=== PATIENT | female | born 1970 | race Caucasian/White ===

== ENCOUNTER → 2016-03-08 | Outpatient (CLI) | payer OTHER ==
--- NOTE | 2016-03-08 14:01 | CT ---
EXAMINATION TYPE: CT chest w con DATE OF EXAM: 03/08/2016 1:22 PM COMPARISON: 12/04/2015 HISTORY: Patient has no complaints at time of study. Follow up for history of lung/breast CA and anna g collapse. CT DLP: 122.2 mGycm Automated exposure control for dose reduction was used. CONTRAST: CT scan of the chest is performed with IV Contrast, patient injected with 100 mL of Omnipaque 300. FINDINGS: LUNGS: Postoperative changes right upper lobe. There is evidence of paraseptal emphysema. Nodular den sity right lower lobe measuring 3.7 mm as seen best on image 30. No additional nodules seen. Mild ple ural parenchymal scarring right lower lobe. MEDIASTINUM: There are no greater than 1 cm hilar or mediastinal lymph nodes. No pericardial effusi on is seen. Thoracic aorta is of normal caliber. The heart is not enlarged. UPPER ABDOMEN: There is evidence of fatty liver. Within the posterior segment right hepatic lobe near the hepatic dome other 2 small lesions noted without one of which is hyperdense and measures 6 mm th e second demonstrates peripheral enhancement and measures 1.2 cm. These may reflect hemangiomas how er dedicated evaluation of the liver with hemangioma protocol is advised. There is also evidence of c holecystectomy. OTHER: Bilateral breast implants are in place. IMPRESSION: 1.Nodular density right lower lobe measuring 3.7 mm as seen best on image 30. No additional nodules s een. 2.Within the posterior segment right hepatic lobe near the hepatic dome other 2 small lesions noted w ithout one of which is hyperdense and measures 6 mm the second demonstrates peripheral enhancement an d measures 1.2 cm. These may reflect hemangiomas however dedicated evaluation of the liver with heman gioma protocol is advised. 3. Postoperative changes right upper lobe with paraseptal emphysema seen.
== END | disposition home or self-care (01) ==
LOC: RADCTMAIN 12:42
PROVIDERS: ATTEND Internal Medicine Hematology & Oncology
DX: Z03.89 Encounter for observation for other suspected diseases and conditions ruled out (principal); R91.1 Solitary pulmonary nodule; R91.8 Other nonspecific abnormal finding of lung field; J43.9 Emphysema, unspecified; C50.919 Malignant neoplasm of unspecified site of unspecified female breast; Z98.890 Other specified postprocedural states
CPT/HCPCS: 71260; Q9967

== ENCOUNTER → 2016-08-04 | Outpatient (CLI) | payer OTHER ==
--- NOTE | 2016-08-04 18:42 | CT ---
EXAMINATION TYPE: CT chest w con DATE OF EXAM: 08/04/2016 COMPARISON: 03/08/2016 HISTORY: Breast Cancer CT DLP: 514 mGycm Automated exposure control for dose reduction was used. CONTRAST: CT scan of the chest is performed with IV Contrast, patient injected with 100 ml mL of Omnipaque 300. FINDINGS: There is mild bullous emphysema and more noticeable in the upper lobes. There are bilateral breast im plants. Mediastinum is intact. There is no evidence of mediastinal adenopathy. I see no filling defec ts in the pulmonary arteries. There are no hilar masses. Heart size is normal. There is no pericardia l effusion. There is a 3 cm area of mixed density in the superior right lobe of the liver with some n odular enhancement consistent with hemangioma. There is no adrenal mass. There is no pleural effusion . There is a small linear density in the lingula left upper lobe. There is mild linear density and ca lcification in the anterior right middle lobe. I see no focal bone destruction. IMPRESSION: There is chronic predominantly linear density in the right middle lobe and right upper l obe consistent with scarring. There is a small area of similar density in the lingula left upper lobe . This appears stable compared to old CT scan of 03/08/2016. Mild pulmonary emphysema. No evidence of adenopathy. Stable hemangioma in the superior posterior right lobe of the liver.
== END | disposition home or self-care (01) ==
LOC: RADCTMAIN 14:08
PROVIDERS: ATTEND Internal Medicine Hematology & Oncology
DX: C50.919 Malignant neoplasm of unspecified site of unspecified female breast (principal); J43.9 Emphysema, unspecified; R91.8 Other nonspecific abnormal finding of lung field
CPT/HCPCS: 71260; Q9967

== ENCOUNTER → 2017-08-25 | Outpatient (CLI) | payer OTHER ==
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
[2017-08-25 16:57] VITALS: BP 132/92; PULSE 90; TEMP 98.6; BMI 23.3
== END ==
LOC: WWCWWP 14:11
PROVIDERS: ATTEND Surgery
DX: Z53.9 Procedure and treatment not carried out, unspecified reason (principal)

== ENCOUNTER → 2017-09-29 | Outpatient (CLI) | payer OTHER ==
[2017-09-29 09:03] VITALS: BP 114/76; PULSE 79; RESP 12; TEMP 98.3; BMI 23.1
--- NOTE | 2017-09-29 09:28 | P.GSHP ---
History of Present Illness H&P Date: 09/29/17 The patient is a 47-year-old white female who is status post bilateral mastectomy in 2006. The patient at that time was 35 years old. She was uncertain if she had BRCA 1 testing performed. She was told that she had cancer on the right side but her lymph nodes were negative. She was having bleeding from the right nipple and at that time she was felt that it would be best to have bilateral mastectomy. She did have immediate reconstruction with expanders place. It was necessary for her to have radiation therapy to the right chest wall. She began the process of expansion after completion of the radiation which was done about [facility] for a period of 6 weeks 5 days a week. She then began the process of expansion every 2 weeks and had pain on the right side at that time. In the process of her expansion she lost her insurance and is therefore never had the expanders removed and the reconstruction completed. The patient had a total hysterectomy with her ovaries removed no cancer was present. The patient at this time is not having any pain related to the expanders however she has noted that the clinical psychology teacher seems to be eroding through an area of the skin on the right side. The left side appears to be healing well. The patient does not seem to have any infection at the site at this time. Family history: 1. Father prostate cancer 2. Maternal grandmother lung cancer she was a smoker 3. Maternal grandfather lung cancer smoker Hormonal history: Menarche: 13 Pregnancies: 4, 4 children, first at 21 she breast-fed all Menopause: Total hysterectomy at 35 years old hormones: Tamoxifen for 5 years did not use any hormone replacement therapy was told her tumor was ER positive control pills: 6 years Past surgical history: 1. Bilateral mastectomy with reconstruction 2. Cholecystectomy 3. Pneumothorax/chest tube and thoracic surgery questionable mesothelioma which was sensed ruled out Past medical history: 1. COPD 2. Patient with a portion of her lung resected with a questionable history of mesothelioma which was ruled out Social history: 1. Smoker: Half a pack per day for 20 years 2. Alcohol: We can strings. 3. Drugs negative - Constitutional Constitutional: Reports sweats, Denies chills, Denies fever - EENT Eyes: denies blurred vision, denies pain Ears: deny: decreased hearing, tinnitus Ears, nose, mouth and throat: Denies headache, Denies sore throat - Breasts Breasts: bilateral: as per HPI - Cardiovascular Cardiovascular: Denies chest pain, Denies shortness of breath - Respiratory Respiratory: Reports as per HPI - Gastrointestinal Gastrointestinal: Denies abdominal pain, Denies diarrhea, Denies nausea, Denies vomiting - Genitourinary (Female) Genitourinary: Denies dysuria, Denies hematuria - Musculoskeletal Musculoskeletal: Denies myalgias - Integumentary Integumentary: Denies pruritus, Denies rash - Neurological Neurological: Denies numbness, Denies weakness - Psychiatric Psychiatric: Denies anxiety, Denies depression - Endocrine Endocrine: Denies fatigue, Denies weight change - Hematologic/Lymphatic Comment: none - Allergic/Immunologic Comment: none Past Medical History Past Medical History: Cancer, COPD, Thyroid Disorder Additional Past Medical History / Comment(s): R breast cancer with bilateral mastectomies with radiation, History of Any Multi-Drug Resistant Organisms: None Reported Past Surgical History: Breast Surgery, Cholecystectomy, Tubal Ligation Additional Past Surgical History / Comment(s): bilateral masectomies with reconstruction, D&C, RIGHT LUNG SURGERY Past Anesthesia/Blood Transfusion Reactions: No Reported Reaction, Motion Sickness Past Psychological History: Anxiety, Panic Disorder Additional Psychological History / Comment(s): Pt resides with family. She is independent. Smoking Status: Current every day smoker Past Alcohol Use History: Occasional Additional Past Alcohol Use History / Comment(s): STARTED SMOKING AT AGE 15 SMOKES 1/4 PPD Past Drug Use History: None Reported - Past Family History Father Family Medical History: Cancer Additional Family Medical History / Comment(s): Father is healthy and is 75yrs old. Mother Family Medical History: No Reported History Additional Family Medical History / Comment(s): Mother is healthy and is 75 yrs old. Medications and Allergies Home Medications Medication Instructions Recorded Confirmed Type ALPRAZolam [Xanax] 0.5 mg PO DAILY PRN 08/25/17 09/29/17 History Ranitidine HCl 150 mg PO DAILY PRN 08/25/17 09/29/17 History Albuterol Inhaler [Ventolin Hfa 1 - 2 puff INHALATION Q6HR PRN 09/26/17 History Inhaler] Ibuprofen [Motrin] 800 mg PO Q8H PRN 09/26/17 09/29/17 History Allergies Allergy/AdvReac Type Severity Reaction Status Date / Time No Known Allergies Allergy Verified 09/29/17 08:54 Surgical - Exam Vital Signs Temp Pulse Resp BP Pulse Ox 98.3 F 79 12 114/76 99 09/29/17 08:55 09/29/17 08:55 09/29/17 08:55 09/29/17 08:55 09/29/17 08:55 - General well developed, well nourished, no distress - Eyes normal ocular movement - ENT no hearing loss, no congestion - Neck no masses, trachea midline - Respiratory normal respiratory effort, clear to auscultation - Cardiovascular Rhythm: regular Heart Sounds: normal: S1, S2 - Abdomen Abdomen: soft, non tender, no guarding, no rigid, no rebound Hernia: reducible, umbilical - Integumentary Breast examination: Right breast: Patient status post mastectomy with reconstruction the implant is very firm with some erosion over the skin in the central aspect of the area of the implant, the skin is been radiated as well and there are radiation changes Right axilla: No adenopathy of concern Left breast: Patient status post mastectomy with reconstruction the skin is supple with no evidence of disease Left axilla: No adenopathy of concern Assessment and Plan Assessment: Impression/plan: 1. Patient status post bilateral mastectomy with bilateral expanders placed proximally 7 years ago 2. The right is beginning to erode through the skin of the breast 3. Patient with questionable history of mesothelioma denied by [facility] 4. Patient follows with Dr. Oneill Plan: 1. Patient has received medical clearance from Dr. Mcnair pending pulmonary clearance 2. After discussion with the patient and her mother she wishes both of the expanders to be removed. She is not interested in reconstruction at this time. She understands and will be necessary for cosmetic results to wear bra with prosthesis and this was she wishes to do. The risks and benefits of the surgery have been discussed with the patient including bleeding and infection reaction to the anesthetic and she wishes to proceed. Additionally there is some concern that the right skin is very fibrotic and has radiation changes and there may be difficulty with healing she understands this and wishes to proceed. She understands that if I'm unable to completely remove that implant secondary to fibrosis she may be necessary that she follow with a plastic surgeon and she still wishes to proceed. Cc: Dr. Mcnair, Dr. Oneill, Dr. Bedoya pulmonology
== END ==
LOC: WWCWWP 08:43
PROVIDERS: ATTEND Surgery
DX: Z53.9 Procedure and treatment not carried out, unspecified reason (principal)

== ENCOUNTER 2017-10-04 08:13 | Observation (INO) | payer OTHER ==
[2017-09-26 11:48] VITALS: BMI 22.4
[~2017-10-04 08:13] MED LIST: DEXAMETHASONE SOD PHOSPHATE 10 MG/ML 1 ML VIAL IV ONE; LACTATED RINGERS 1,000 ML IV SCH; LIDOCAINE 1% 20 ML VIAL (10MG/ML) FOR IV START INTRADERMA PRN; MIDAZOLAM 2 MG/2 ML VIAL IV PRN; ONDANSETRON 4 MG/2 ML VIAL IVP ONE; Pre Op ABX Message 1 EACH MISC MISCELLANE ONE
[2017-10-04] MEDS ORDERED: LIDOCAINE 1% INJ 10MG/ML (20 ML MDV) ONE (09:56)
[2017-10-04] MEDS ORDERED: ePHEDrine SULFATE/0.9% NACL/PF 50 MG/5 ML SYRINGE IV ONE (09:56)
[2017-10-04] MEDS ORDERED: KETOROLAC 30 MG/ML 1 ML VIAL ONE (09:56)
[2017-10-04] MEDS ORDERED: SUCCINYLCHOLINE CHLORIDE 100 MG/5 ML SYR IV ONE (09:56)
[2017-10-04] MEDS ORDERED: PROPOFOL 10 MG/ML 20 ML VIAL IV ONE (09:56)
[2017-10-04] MEDS ORDERED: MIDAZOLAM 2 MG/2 ML VIAL ONE (09:56)
[2017-10-04] MEDS ORDERED: fentaNYL (PF) 50 MCG/ML 2 ML AMP ONE (09:56)
[2017-10-04] MEDS ORDERED: SODIUM CHLORIDE 0.9% 50 ML with ceFAZolin 1,000 MG IV ONE ×2 (10:06)
[2017-10-04] MEDS ORDERED: HEPARIN SODIUM,PORCINE 5,000 UNIT/ML 1 ML VIAL SQ ONE (10:06)
--- NOTE | 2017-10-04 10:06 | P.PN ---
Progress Note - Text Progress Note Date: 10/04/17 The case has been discussed with Dr. Mclean from plastic surgery. He is the original plastic surgeon who placed the expanders. He is in concurrence with me removing the expanders. I discussed with him that the right spinning frame tender is very fixed and that there is marked fibrosis of the skin related to radiation treatment. He understands this and understands that we may have difficulty removing the spinning frame tender completely. Despite this he agrees with attempted removal of the expanders. He has agreed to see the patient postoperatively if there is any question or complication. The patient and her family also understand the above and wishes to proceed with removal of the expanders. The patient is not interested in reconstruction of the breast at any time and even if we are unable to remove completely the right breast spinning frame tender she wishes the left breast spinning frame tender to be removed. She understands the risks and benefits and wishes to proceed.
[2017-10-04] MEDS ORDERED: LIDOCAINE 1% INJ 10MG/ML (20 ML MDV) SQ ONE (10:13)
[2017-10-04] MEDS ORDERED: LACTATED RINGERS 1,000 ML IV ONE (11:24)
[2017-10-04] MEDS ORDERED: HYDROcodone/APAP 5-325MG 1 EACH TAB PO PRN (11:40)
[2017-10-04] MEDS ORDERED: ONDANSETRON 4 MG/2 ML VIAL IVP PRN (11:40)
[2017-10-04] MEDS ORDERED: HYDROmorphone 1 MG/ML 1 ML SYRINGE IV PRN (11:40)
[2017-10-04] MEDS ORDERED: NALOXONE 0.4 MG/ML 1 ML VIAL IV PRN (11:40)
--- NOTE | 2017-10-04 11:40 | P.OP ---
Date of Procedure: 10/04/17 Preoperative Diagnosis: Right breast cancer, orchestrator eroding through chest wall on right side, patient is a 47-year-old white female who is status post bilateral mastectomies and orchestrator placement approximately 7 years ago. She presents with some beginning erosion of the right orchestrator through the skin of the chest wall. The patient had had a cancer on the right side and undergone a mastectomy and radiation therapy on that side. The patient states that she started the process of breast reconstruction and then lost her insurance and did not pursue this any further. The patient presented for removal of bilateral expanders. The case was discussed with plastic surgery and risks and benefits discussed with the patient in she wished to proceed. Postoperative Diagnosis: same Procedure(s) Performed: Removal bilateral breast expanders, Anesthesia: DANAYA Surgeon: Rylee Juárez Estimated Blood Loss (ml): 10 IV fluids (ml): 800 Pathology: other (Bilateral breast expanders, skin lesion right chest wall) Condition: stable Disposition: PACU Indications for Procedure: The patient is a 47-year-old white female who had bilateral mastectomies approximately 7 years ago. The patient had expanders placed and did not complete her reconstruction. At this time the orchestrator on the right side which had received radiation is beginning to erode through the chest wall. The patient understands the risks and benefits and wished to proceed with the procedure. Operative Findings: Bilateral breast implants, markedly fibrotic changes on the right chest wall and pectoralis muscle related to prior radiation treatment Description of Procedure: The patient is a 47-year-old white female who had bilateral mastectomies approximately 7 years ago. The patient had expanders placed and did not complete her reconstruction. At this time the orchestrator on the right side which had received radiation is beginning to erode through the chest wall. The patient understands the risks and benefits and wished to proceed with the procedure. The patient was taken to the operating room and the chest wall was prepped and draped in a sterile fashion. The right side was approached initially. An incision was made through the skin and subcutaneous tissue. The orchestrator was extremely close and at some points appeared to be eroding through the area of the subpectoral muscle and through the area of the skin. The muscle was divided in order to reach the implant which was very adherent to the implant. This was carefully dissected using blunt dissection and able to be completely removed. The cavity was well irrigated. There was prominent fullness at the superior aspect of the cavity which appeared to be bony in nature. After the cavity had been well irrigated a CASIE drain was placed. The muscles were reapproximated using 3-0 Vicryl suture. The skin was reapproximated using a 4- 0 Monocryl. The inferior flap was revised as the skin was very thin and appeared to have radiation changes. This area was resected. The drain was secured using a nylon suture. The patient had a small area of nodularity superior on the flap which was resected to rule out a metastatic deposit. Gowns and gloves were changed as were instruments prior to approaching the left side of the chest. The left side of the chest wall was then approached. An incision was made and carried down through the skin and subcutaneous tissue. The muscle was identified. The lateral aspect of the muscle was elevated and the implant was able to be extruded. The cavity was well irrigated. Following this a CASIE drain was placed. The muscle was closed using a Vicryl suture. The subcutaneous tissue was closed using a 3-0 Vicryl suture. The skin was closed using a 4-0 Monocryl. The drain was secured using a nylon suture. Cultures were obtained of both the implants. Steri-Strips were applied the patient tolerated the procedure in stable condition. All instrument and sponge counts were correct at the end of the case.
[2017-10-04] MEDS ORDERED: SODIUM CHLORIDE 0.45% 1,000 ML IV SCH (11:45)
[2017-10-04] MEDS: fentaNYL (PF) 50 MCG/ML 2 ML AMP IV PRN ×2 (12:14→12:26)
[2017-10-04] MEDS ORDERED: CALCIUM CARBONATE 500 MG CHEWABLE PO PRN (16:37)
[2017-10-04] MEDS ORDERED: ALPRAZolam 0.5 MG TAB PO PRN (16:38)
[2017-10-04] MEDS: KETOROLAC 30 MG/ML 1 ML VIAL IVP PRN (19:35)
[2017-10-04] MEDS ORDERED: HEPARIN SODIUM,PORCINE 5,000 UNIT/ML 1 ML VIAL SQ SCH (21:00)
[2017-10-05] MEDS: KETOROLAC 30 MG/ML 1 ML VIAL IVP PRN ×2 (01:08→08:08)
[2017-10-05 05:44] VITALS: RESP 16
[2017-10-05] MEDS ORDERED: PANTOPRAZOLE 40 MG TABLET PO SCH (07:30)
[2017-10-05 07:34] LABS: Basophils % (A) 0 %; Eosinophils # (A) 0.1 k/uL (0-0.7); Eosinophils % (A) 1 %; HCT 41.8 % (34.0-46.0); HGB 13.1 gm/dL (11.4-16.0); Lymphocytes % (A) 20 %; MCHC 31.3 g/dL (31.0-37.0); MCV 105.2 fL (80.0-100.0); Macrocytosis Slight; Mean Platelet Volume 6.8; Monocytes # (A) 0.7 k/uL (0-1.0); Monocytes % (A) 7 %; Neutrophils # (A) 7.2 k/uL (1.3-7.7); Neutrophils % (A) 71 %; Platelet Count 268 k/uL (150-450); RBC 3.97 m/uL (3.80-5.40); RDW 12.3 % (11.5-15.5); WBC 10.1 k/uL (3.8-10.6)
[2017-10-05 08:18] VITALS: BP 108/69; PULSE 63; TEMP 98
[2017-10-05] MEDS ORDERED: FAMOTIDINE 20 MG TAB PO PRN (09:20)
[2017-10-05] MEDS ORDERED: ALBUTEROL NEBULIZED 2.5 MG/3 ML INHALATION PRN (09:20)
[2017-10-05] MEDS ORDERED: ALPRAZolam 0.5 MG TAB PO PRN (09:20)
--- NOTE | 2017-10-05 09:20 | P.CONS ---
History of Present Illness - Reason for Consult Consult date: 10/05/17 - Chief Complaint Medical management - History of Present Illness Is here essentially for implant/head of science removal. She has struggled with previous history of breast cancer and the cosmetic appearance of this. No new complaints. She has minimal pain postoperatively. Review of Systems Constitutional: Denies chills, Denies fever Eyes: denies blurred vision, denies pain Ears, nose, mouth and throat: Denies headache, Denies sore throat Cardiovascular: Denies chest pain, Denies shortness of breath Respiratory: Denies cough Gastrointestinal: Denies abdominal pain, Denies diarrhea, Denies nausea, Denies vomiting Genitourinary: Denies dysuria, Denies hematuria Musculoskeletal: Denies myalgias Past Medical History Past Medical History: Cancer, COPD, Thyroid Disorder Additional Past Medical History / Comment(s): R breast cancer with bilateral mastectomies with radiation, History of Any Multi-Drug Resistant Organisms: None Reported Past Surgical History: Breast Surgery, Cholecystectomy, Tubal Ligation Additional Past Surgical History / Comment(s): bilateral masectomies with reconstruction, D&C, RIGHT LUNG SURGERY Past Anesthesia/Blood Transfusion Reactions: No Reported Reaction, Motion Sickness Past Psychological History: Anxiety, Panic Disorder Additional Psychological History / Comment(s): Pt resides with family. She is independent. Smoking Status: Current every day smoker Past Alcohol Use History: Occasional Additional Past Alcohol Use History / Comment(s): STARTED SMOKING AT AGE 15 SMOKES 1/4 PPD Past Drug Use History: None Reported - Past Family History Father Family Medical History: Cancer Additional Family Medical History / Comment(s): Father is healthy and is 75yrs old. Mother Family Medical History: No Reported History Additional Family Medical History / Comment(s): Mother is healthy and is 75 yrs old. Medications and Allergies Home Medications Medication Instructions Recorded Confirmed Type ALPRAZolam [Xanax] 0.5 mg PO DAILY PRN 08/25/17 10/04/17 History Ranitidine HCl 150 mg PO DAILY PRN 08/25/17 10/04/17 History Albuterol Inhaler [Ventolin Hfa 1 - 2 puff INHALATION Q6HR PRN 09/26/17 History Inhaler] Ibuprofen [Motrin] 800 mg PO Q8H PRN 09/26/17 09/29/17 History Allergies Allergy/AdvReac Type Severity Reaction Status Date / Time No Known Allergies Allergy Verified 09/29/17 08:54 Physical Exam Vitals: Vital Signs Temp Pulse Resp BP Pulse Ox 10/05/17 08:00 98.0 F 63 16 108/69 98 10/05/17 00:00 97.9 F 69 16 131/69 97 10/04/17 20:00 97.6 F 61 16 106/72 10/04/17 16:00 98.5 F 60 18 103/68 94 L 10/04/17 15:45 98.0 F 63 18 110/69 94 L 10/04/17 15:15 71 18 120/71 94 L 10/04/17 14:45 70 16 118/68 94 L 10/04/17 14:15 68 16 122/70 93 L 10/04/17 14:00 68 16 116/70 93 L 10/04/17 13:45 98.4 F 75 16 122/64 94 L 10/04/17 13:30 68 16 116/68 93 L 10/04/17 13:15 98.1 F 80 16 116/70 93 L 10/04/17 12:43 79 16 111/75 92 L 10/04/17 12:27 85 16 109/75 94 L 10/04/17 12:15 86 16 120/81 97 10/04/17 11:56 97.0 F L 100 22 119/79 98 Intake and Output 10/04/17 10/05/17 10/05/17 22:59 06:59 14:59 Intake Total 300 Output Total 5 30 20 Balance 295 -30 -20 Intake: Oral 300 Output: Drainage 5 30 20 Right Chest 5 15 10 left chest 15 10 Other: # Voids 1 1 1 Results CBC & Chem 7: 10/05/17 06:50 Labs: Abnormal Lab Results - Last 24 Hours (Table) 10/05/17 Range/Units 06:50 MCV 105.2 H (80.0-100.0) fL Microbiology - Last 24 Hours (Table) 10/04/17 11:40 Gram Stain - Preliminary Breast - Left Wound Culture - Preliminary 10/04/17 11:40 Gram Stain - Preliminary Breast - Right Wound Culture - Preliminary 10/04/17 11:40 Anaerobic Culture - Preliminary Breast - Left 10/04/17 11:40 Anaerobic Culture - Preliminary Breast - Right Assessment and Plan (1) COPD (chronic obstructive pulmonary disease) Current Visit: No Status: Acute Code(s): J44.9 - CHRONIC OBSTRUCTIVE PULMONARY DISEASE, UNSPECIFIED SNOMED Code(s): 15597755 (2) History of breast cancer in female Current Visit: No Status: Acute Code(s): Z85.3 - PERSONAL HISTORY OF MALIGNANT NEOPLASM OF BREAST SNOMED Code(s): 063060493 Plan: We'll continue to follow from a medical perspective but especially be discharged today once the wound check is clear. Reconcile medications as needed. We'll follow-up as necessary.
--- NOTE | 2017-10-05 11:33 | P.PN ---
Subjective Progress Note Date: 10/05/17 Patient is post op day number one removal of bilateral breast implants. She is doing well without complaints. Objective - Vital Signs Vital signs: Vital Signs Temp 98.0 F 10/05/17 08:00 Pulse 63 10/05/17 08:00 Resp 16 10/05/17 08:00 BP 108/69 10/05/17 08:00 Pulse Ox 98 10/05/17 08:00 Intake & Output 10/04/17 10/05/17 10/05/17 18:59 06:59 18:59 Intake Total 1500 Output Total 15 30 20 Balance 1485 -30 -20 Weight 61.235 kg Intake: IV 1200 Oral 300 Output: Drainage 5 30 20 Right Chest 5 15 10 left chest 15 10 Estimated Blood Loss 10 Other: # Voids 1 1 1 - Constitutional General appearance: Present: average body habitus - Respiratory Respiratory: bilateral: CTA - Cardiovascular Rhythm: regular Heart sounds: normal: S1, S2 - Integumentary Integumentary Comment(s): incisions clean and dry bilateral, CASIE output serous - Psychiatric Psychiatric: Present: A&O x's 3, appropriate affect, intact judgment & insight - Labs CBC & Chem 7: 10/05/17 06:50 Labs: Abnormal Lab Results - Last 24 Hours (Table) 10/05/17 Range/Units 06:50 MCV 105.2 H (80.0-100.0) fL Microbiology - Last 24 Hours (Table) 10/04/17 11:40 Gram Stain - Preliminary Breast - Left Wound Culture - Preliminary 10/04/17 11:40 Gram Stain - Preliminary Breast - Right Wound Culture - Preliminary 10/04/17 11:40 Anaerobic Culture - Preliminary Breast - Left 10/04/17 11:40 Anaerobic Culture - Preliminary Breast - Right Assessment and Plan Assessment: imp/plan: 1. status post bilateral implant removal 2. POD#1 Plan: 1. discharge home 2. wear wrap 3. teach drain care 4. follow up tomorrow
--- NOTE | 2017-10-05 11:36 | P.DS ---
Providers Date of admission: 10/05/17 02:32 Attending physician: Rylee Juárez Consults: 10/04/17 11:43 Consult Physician Routine Consulting Provider: Elias Mcnair Consult Reason/Comments: medical managment Do you want consulting provider notified?: Yes Primary care physician: Elias Mcnair Plan - Discharge Summary New Discharge Prescriptions: No Action Ranitidine HCl 150 mg PO DAILY PRN PRN Reason: Heartburn ALPRAZolam [Xanax] 0.5 mg PO DAILY PRN PRN Reason: Anxiety Albuterol Inhaler [Ventolin Hfa Inhaler] 1 - 2 puff INHALATION Q6HR PRN PRN Reason: Shortness Of Breath Ibuprofen [Motrin] 800 mg PO Q8H PRN PRN Reason: Pain Discharge Medication List ALPRAZolam [Xanax] 0.5 mg PO DAILY PRN 08/25/17 [History] Ranitidine HCl 150 mg PO DAILY PRN 08/25/17 [History] Albuterol Inhaler [Ventolin Hfa Inhaler] 1 - 2 puff INHALATION Q6HR PRN [History] Ibuprofen [Motrin] 800 mg PO Q8H PRN 09/26/17 [History] Follow up Appointment(s)/Referral(s): Rylee Juárez MD [STAFF PHYSICIAN] - 1-2 Days Activity/Diet/Wound Care/Special Instructions: do not drive if taking vicodan medication teach drain care, drain and record BID and as needed may shower after 48 hours wear wrap at all times Discharge Disposition: HOME SELF-CARE
== END 2017-10-05 12:19 | disposition home or self-care (01) ==
LOC: OR 08:13 → 4FBP 11:56 → OR 10-05 02:32
PROVIDERS: ADMIT Surgery; ATTEND Surgery
DX: T85.49XA Other mechanical complication of breast prosthesis and implant, initial encounter (principal); Z90.13 Acquired absence of bilateral breasts and nipples; Z85.3 Personal history of malignant neoplasm of breast; J44.9 Chronic obstructive pulmonary disease, unspecified; F17.210 Nicotine dependence, cigarettes, uncomplicated; E07.9 Disorder of thyroid, unspecified; F41.0 Panic disorder [episodic paroxysmal anxiety]; F41.9 Anxiety disorder, unspecified; Z79.899 Other long term (current) drug therapy; Z92.3 Personal history of irradiation; Z90.710 Acquired absence of both cervix and uterus; Z90.2 Acquired absence of lung [part of]; Z90.49 Acquired absence of other specified parts of digestive tract; Z80.1 Family history of malignant neoplasm of trachea, bronchus and lung; Z80.42 Family history of malignant neoplasm of prostate; Z81.2 Family history of tobacco abuse and dependence
CPT/HCPCS: 88305; 85025; 88300; 87070; 87205; 87075; 11971; G0378; J2250; J1644 ×2; J1100; J2405; J2001; J3010; J1885 ×2; J1170; J0690; J0330; J2704

== ENCOUNTER → 2017-10-06 | Outpatient (CLI) | payer OTHER ==
[2017-10-06 16:30] VITALS: BP 124/84; PULSE 69; RESP 12; TEMP 98.5; BMI 23.1
--- NOTE | 2017-10-06 16:55 | P.PN ---
Progress Note - Text Progress Note Date: 10/06/17 The patient is postop day #2 from removal of bilateral breast expanders. She has no complaints at this time. Her Mandy wrap was removed and dressings were changed. Physical exam: Incisions are both clean and dry. There is no evidence of any infection or hematoma. CASIE drains are in place with serous drainage bilaterally each drain has approximately 8 cc. Impression/plan: 1. Patient postop day #2 removal of bilateral breast expanders 2. Continue present therapy Plan: Follow up next week for drain removal and pathology of skin right chest wall Cc: Dr. Mcnair
== END ==
LOC: WWCWWP 16:13
PROVIDERS: ATTEND Surgery
DX: Z53.9 Procedure and treatment not carried out, unspecified reason (principal)

== ENCOUNTER → 2017-10-13 | Outpatient (CLI) | payer OTHER ==
[2017-10-13 12:34] VITALS: BP 118/69; PULSE 87; BMI 23.1
--- NOTE | 2017-10-13 13:08 | P.PN ---
Progress Note - Text Progress Note Date: 10/13/17 The patient is a 47-year-old white female who is status post removal of bilateral breast expanders. She has no complaints at this time related to the surgery, however this morning when she woke up she did have some left chest wall tenderness. This appears to be muscular in nature and is more noticeable when she flexes her pectoralis muscle. CASIE drainage is approximately 10-15 mL per day per drain. It is serous in nature. The results of the pathology were discussed with the patient and her mother. A skin lesion had been removed which revealed calcium sulfide tissue. No evidence of any cancer. Physical exam: Incisions clean and dry bilateral breast, as well as skin lesion removed right chest wall CASIE drain serous bilateral The left chest wall has some tenderness to palpation over the intercostal muscles and pectoralis muscle, there is no mass or no evidence of any infection Lungs clear Heart regular rate and rhythm Impression: 1. Status post removal of bilateral breast expanders related to prior right breast cancer surgery 2. CASIE drain removal recommended 3. Musculoskeletal tenderness over the pectoralis muscle Plan: 1. Removal bilateral CASIE drains, this was performed with no difficulty 2. skin sutures removed right chest wall 3. If patient has persistent musculoskeletal tenderness over the pectoralis muscle will consider physical therapy, at this time conservative management 4. Follow-up in 2 weeks and we will assess the wound healing most likely give the patient a prescription for bilateral breast prosthesis Cc: Dr. Mcnair
== END ==
LOC: WWCWWP 12:22
PROVIDERS: ATTEND Surgery
DX: Z53.9 Procedure and treatment not carried out, unspecified reason (principal)

== ENCOUNTER → 2017-10-31 | Outpatient (CLI) | payer OTHER ==
[2017-10-31 13:19] VITALS: BP 113/79; PULSE 96; BMI 23.1
--- NOTE | 2017-10-31 13:33 | P.PN ---
Progress Note - Text Progress Note Date: 10/31/17 The patient is status post bilateral breast expanders removed on October 04. She has done well since that time. At this time her incisions are healing without difficulty. Expanders were originally placed approximately 10 years ago. At that time she had bilateral mastectomy for a right breast cancer. She did receive tamoxifen and radiation therapy. At this time the patient is doing well. Physical exam: Lungs: Clear Heart: Regular rate and rhythm Incisions: Bilateral healed well with no evidence of any infection Impression/plan: 1. Patient will follow up in 6 weeks for prosthetic prescription 2. Follow-up with Dr. Mcnair for medical care 3. Follow here in 6 weeks time Cc: Dr. Mcnair
== END | disposition home or self-care (01) ==
LOC: WWCWWP 12:36
PROVIDERS: ATTEND Surgery
DX: Z53.9 Procedure and treatment not carried out, unspecified reason (principal)

== ENCOUNTER 2017-11-08 10:38 | Emergency (ER) | payer OTHER ==
[2017-11-08 11:02] VITALS: RESP 18
--- NOTE | 2017-11-08 11:20 | ED ---
General Adult HPI - General Chief complaint: Recheck/Abnormal Lab/Rx Stated complaint: open incision post breast surgry Time Seen by Provider: 11/08/17 11:05 Source: patient, RN notes reviewed Mode of arrival: ambulatory Limitations: no limitations - History of Present Illness Initial comments: 47-year-old female presents to the emergency department for a chief complaint of "surgical scar opening up." Patient had breast surgery 5 weeks ago to remove expanders that she had placed after breast cancer treatment 10 years ago. Patient states that she has not had any complications over the past 5 weeks. However, yesterday around 4 PM patient's woke up from a nap and noticed the right side of her shirt was wet. Patient states that this morning she again woke up and his chart was wet and had blood on it and when she looked in the mirror she noticed the surgical site had opened. Patient states she had the surgery by Dr. Rylee Hood. Patient denies any fevers or chills. Patient denies pain. Patient has no other complaints at this time including shortness of breath, chest pain, abdominal pain, nausea or vomiting, headache, or visual changes. - Related Data Home Medications Medication Instructions Recorded Confirmed ALPRAZolam [Xanax] 0.5 mg PO DAILY PRN 08/25/17 11/08/17 Ranitidine HCl 150 mg PO DAILY PRN 08/25/17 11/08/17 Albuterol Inhaler [Ventolin Hfa 1 - 2 puff INHALATION RT-Q6H PRN 09/26/17 Inhaler] Ibuprofen [Motrin] 800 mg PO Q8H PRN 09/26/17 11/08/17 Allergies Allergy/AdvReac Type Severity Reaction Status Date / Time No Known Allergies Allergy Verified 11/08/17 11:07 Review of Systems ROS Statement: Those systems with pertinent positive or pertinent negative responses have been documented in the HPI. ROS Other: All systems not noted in ROS Statement are negative. Past Medical History Past Medical History: Cancer, COPD, Thyroid Disorder Additional Past Medical History / Comment(s): R breast cancer with bilateral mastectomies with radiation, History of Any Multi-Drug Resistant Organisms: None Reported Past Surgical History: Breast Surgery, Cholecystectomy, Tubal Ligation Additional Past Surgical History / Comment(s): bilateral masectomies with reconstruction, D&C, RIGHT LUNG SURGERY Past Anesthesia/Blood Transfusion Reactions: No Reported Reaction, Motion Sickness Past Psychological History: Anxiety, Panic Disorder Smoking Status: Current every day smoker Past Alcohol Use History: Occasional Past Drug Use History: None Reported - Past Family History Father Family Medical History: Cancer Additional Family Medical History / Comment(s): Father is healthy and is 75yrs old. Mother Family Medical History: No Reported History Additional Family Medical History / Comment(s): Mother is healthy and is 75 yrs old. General Exam Limitations: no limitations General appearance: alert, in no apparent distress Head exam: Present: atraumatic, normocephalic, normal inspection Eye exam: Present: normal appearance ENT exam: Present: normal exam, mucous membranes moist Neck exam: Present: normal inspection. Absent: tenderness, meningismus, lymphadenopathy Respiratory exam: Present: normal lung sounds bilaterally, other (Patient has a surgical scar over the right breast with a 4 cm x 1.5 cm wound dehiscence. No purulent material noted. No evidence of infection. There is serous clear drainage.). Absent: respiratory distress, wheezes, rales, rhonchi, stridor Cardiovascular Exam: Present: regular rate, normal rhythm, normal heart sounds. Absent: systolic murmur, diastolic murmur, rubs, gallop, clicks Neurological exam: Present: alert, oriented X3, CN II-XII intact Psychiatric exam: Present: normal affect, normal mood Course Vital Signs 11/08/17 10:57 Temperature 98.6 F Pulse Rate 79 Respiratory 18 Rate Blood Pressure 127/92 O2 Sat by Pulse 98 Oximetry Medical Decision Making - Medical Decision Making Patient presents with dehiscence of surgical wound after breast surgery 5 weeks ago. Wound is dehisced about 4 cm x 1.5 cm. There is serous drainage without line or purulent material. No evidence of cellulitis or signs of infection. Dr. Agosto spoke with Dr. Juárez who recommended applying Steri-Strips seeing the patient on November 11 at noon in the office. Wound was cleaned with saline and Steri-Strips and gauze were applied. Patient was educated to monitor for any signs of infection such as spreading or streaking redness or purulent drainage or fevers. She will return if these occur. Otherwise she will follow-up with Dr. Juárez Disposition Clinical Impression: Wound dehiscence Disposition: HOME SELF-CARE Condition: Good Instructions: Wound Dehiscence (ED) Additional Instructions: Please monitor for signs of infection such as spreading or streaking redness, purulent drainage, or fevers. Return to the emergency department if you notice these or any other worsening symptoms. Otherwise follow-up with Dr. Kemal Hood on November 11 at noon in her office. You may want to call the office to verify this appointment. Is patient prescribed a controlled substance at d/c from ED?: No Referrals: Elias Mcnair MD [Primary Care Provider] - 1-2 days Time of Disposition: 12:44
[2017-11-08 13:03] VITALS: BP 136/86; PULSE 67; TEMP 98.2
== END 2017-11-08 13:01 | disposition home or self-care (01) ==
LOC: EC 10:38
DX: T81.30XA Disruption of wound, unspecified, initial encounter (principal); J44.9 Chronic obstructive pulmonary disease, unspecified; F17.200 Nicotine dependence, unspecified, uncomplicated; Z85.3 Personal history of malignant neoplasm of breast; Z92.3 Personal history of irradiation; Z90.13 Acquired absence of bilateral breasts and nipples
CPT/HCPCS: 99283

== ENCOUNTER → 2017-11-10 | Outpatient (CLI) | payer OTHER ==
[2017-11-10 12:04] VITALS: BMI 21.6
--- NOTE | 2017-11-10 12:45 | P.PN ---
Progress Note - Text Progress Note Date: 11/10/17 The patient is a 47-year-old white female status post excision of bilateral implants approximately 5 weeks ago. That on the right was irradiated chest wall and approximately 2 days ago the central portion of the incision opened. The patient has had some serous drainage. The patient has had no fever or chills. Physical examination: Lungs: Clear Heart: Regular rate and rhythm Incision: The central portion of the incision is open is approximately 5 cm x 3 cm in size there is necrotic tissue in the open portion of the incision. Impression: 1. Open incision of radiated tissue right chest wall 2. No active infection but necrotic tissue in the open portion of the area of the incision Plan: 1. Debridement of area 2. Packing of the area and hopefully this will granulate from the inside out CC: Dr. Mcnair
--- NOTE | 2017-11-10 12:49 | P.PCN ---
Date of Procedure: 11/10/17 Preoperative Diagnosis: Open incision right chest wall, radiated necrotic tissue Postoperative Diagnosis: Same Procedure(s) Performed: Debridement area of concern Anesthesia: none Pathology: other (Debrided tissue) Condition: stable Disposition: PACU Indications for Procedure: Open incision with necrotic tissue at central portion of the incision Operative Findings: Necrotic tissue Description of Procedure: The area of the right chest incision was prepped using Betadine. The wound was evaluated and noted to be 5 cm x 3 cm in size. It appeared that there was necrotic tissue in the base of the wound which was debrided using sharp dissection. Portion of the tissue was sent for pathology. Cultures were obtained. After the wound had been cleaned it was packed using gauze. Sutures were placed on the medial and lateral aspect of the wound to prevent it from opening wider. The patient tolerated the procedure in stable condition. The tissue was sent for evaluation. An cultures were obtained. Cc: Dr. Mcnair
== END | disposition home or self-care (01) ==
LOC: WWCWWP 11:58
PROVIDERS: ATTEND Surgery
DX: T81.31XA Disruption of external operation (surgical) wound, not elsewhere classified, initial encounter (principal)
CPT/HCPCS: 87070; 87077; 87186; 87205

== ENCOUNTER → 2017-11-15 | Outpatient (CLI) | payer OTHER ==
[2017-11-15 12:33] VITALS: BP 123/60; PULSE 86; RESP 18; TEMP 99.9; BMI 21.6
== END | disposition home or self-care (01) ==
LOC: WWCWWP 11:56
PROVIDERS: ATTEND Surgery
DX: Z53.9 Procedure and treatment not carried out, unspecified reason (principal)

== ENCOUNTER → 2017-11-15 | Outpatient (CLI) | payer OTHER ==
[2017-11-15 16:27] LABS: HCT 39.7 % (34.0-46.0); MCH 33.9 pg (25.0-35.0); MCHC 32.9 g/dL (31.0-37.0); MCV 103.1 fL (80.0-100.0); Macrocytosis Slight; Mean Platelet Volume 7.7; Platelet Count 386 k/uL (150-450); RBC 3.85 m/uL (3.80-5.40); RDW 11.9 % (11.5-15.5); WBC 8.5 k/uL (3.8-10.6)
== END | disposition home or self-care (01) ==
LOC: LABWHC1 15:23
PROVIDERS: ATTEND Surgery
DX: S21.001A Unspecified open wound of right breast, initial encounter (principal)
CPT/HCPCS: 36415; 85027

== ENCOUNTER → 2017-11-17 | Outpatient (CLI) | payer OTHER ==
[2017-11-17 12:03] VITALS: BP 122/80; PULSE 88; RESP 16; TEMP 98.3; BMI 21.6
--- NOTE | 2017-11-17 12:40 | P.PN ---
Subjective Progress Note Date: 11/17/17 The patient is a 46-year-old white female who is status post removal of bilateral breast implants performed on 2017. The right breast implant was in an area of a radiated tissue and approximately 2 weeks ago the area of the incision on the right opened with some drainage. She was seen shortly after that in some debridement was performed. The patient then noted that the area became foul smelling and had increased drainage. She was seen again in the office where the packing was changed and the patient was started on antibiotics. The patient now states that she is feeling better and that the odor has decreased. She still has some drainage but this is decreasing as well. The patient is scheduled to be seen in wound clinic next week. The patient has no fevers at this time. Objective - Vital Signs Vital signs: Vital Signs Temp 98.3 F 11/17/17 11:52 Pulse 88 11/17/17 11:52 Resp 16 11/17/17 11:52 BP 122/80 11/17/17 11:52 Pulse Ox 99 11/17/17 11:52 Intake & Output 11/16/17 11/17/17 11/17/17 18:59 06:59 18:59 Weight 58.967 kg BMI 21.6 - Constitutional General appearance: Present: average body habitus - Respiratory Respiratory: bilateral: CTA - Cardiovascular Rhythm: regular Heart sounds: normal: S1, S2 - Integumentary Integumentary Comment(s): The area of the right breast incision is opened and the area under the flaps as measured by proximally 10 cm x 6 cm. There is some phlegmon on the superior aspect of the wound as well as at the inferior border of the flap. Sharp debridement was performed of these areas. The wound was well irrigated. There is a small amount of oozing at the superior lateral aspect which was cauterized with silver nitrate stick. The dimensions are approximately 10 cm x 6 cm x 2.5 cm deep. There is no evidence of cellulitis or infection of the skin on the chest wall. It appears that the area is starting to granulate. Assessment and Plan Assessment: Impression: 1. Open incision of radiated tissue right chest wall 2. Debridement of necrotic tissue and open area of the incision 3. Prior history of right breast cancer 4. nicotine dependance 5. Prior pneumothorax on the right side times two 6. COPD Plan: 1. Shunt has home healthcare continue wound packing 2. Appointment and wound clinic with Dr. Olmedo 3. Patient presently on antibiotic Keflex 4. Patient to call if anything changes or any concerns 5. Follow-up with Dr. Sommer on TuesdayNovember 21 cc: Dr. Mcnair
--- NOTE | 2017-11-17 12:45 | P.PCN ---
Date of Procedure: 11/17/17 Preoperative Diagnosis: Open wound radiated tissue right chest wall Postoperative Diagnosis: same Procedure(s) Performed: Debridement necrotic tissue right Surgeon: Rylee Juárez Estimated Blood Loss (ml): 0 Pathology: none sent Condition: stable Disposition: same day Indications for Procedure: Necrotic tissue wound right chest wall Operative Findings: necrotic tissue Description of Procedure: The patient is a 47-year-old white female who is status post removal of the implant from a radiated right chest wall the end of September. The patient had the central portion of the wound opened and has been having this packed. Recently she states that it became odorous and has some purulent drainage. The packing was removed and the wound was evaluated. The superior border of the incision appeared to be necrotic and this was debrided using sharp dissection. The area of debridement was approximately 4 cm x 1.5 cm. The flaps both and superior and inferior were evaluated and the inferior flap had a area of tissue which was debridement and this was approximately 3 cm x 1 cm. The base of the wound was debrided. There was some mild oozing at the superior-lateral aspect of the wound which was cauterized using a silver nitrate stick. The dimensions of the wound were approximately 10 cm x 6 cm at a depth of 2-1/2 cm. Following this the wound was well irrigated. Prior to packing the wound was dried using a 4x4 gauze. The wound was then packed with Nu Gauze. A sterile dressing was applied over this and an Keith wrap was placed to hold things in place.
== END | disposition home or self-care (01) ==
LOC: WWCWWP 11:39
PROVIDERS: ATTEND Surgery
DX: Z53.9 Procedure and treatment not carried out, unspecified reason (principal)

== ENCOUNTER → 2017-11-21 | Outpatient (CLI) | payer OTHER ==
[2017-11-21 14:44] VITALS: BP 103/71; PULSE 92; RESP 12; TEMP 98; BMI 21.6
--- NOTE | 2017-11-21 15:38 | P.PN ---
Progress Note - Text Progress Note Date: 11/21/17 The patient is a 47-year-old white female who is status post removal of bilateral breast implants performed on October 04, 2017. The right breast implant was in an area of radiated tissue and approximately 3 weeks ago the area of the incision on the right opened with some drainage. She was seen shortly thereafter and debridement was performed. The patient then noted that there became foul-smelling and had increased drainage. She was seen in the office for the packing was changed and the patient was started on antibiotics. The patient was seen on and the wound was debrided. She is doing better at that time. The patient continues to do well she has no more foul order the area has decressed drainage. The patient is being seen in wound clinic tomorrow. The patient has no fevers and no chills at this time. Physical exam: The area of the wound was evaluated. At this time is measured at 8.5 cm x 4.8 cm x 2 cm deep. The wound is clean and dry. There is granulation tissue in the base of the wound. The patient does have some necrotic tissue at the edges and this is debrided. Following this the wound was irrigated and packed with iodoform gauze. Impression: Open incision of radiated tissue right chest wall 2. Debridement of necrotic tissue and open area of incision 3. Prior history of right breast cancer 4. Nicotine dependence 5. Prior pneumothorax on the right side 2 6. COPD Plan: 1. Home healthcare continue wound packing 2. Appointment tomorrow wound clinic with Dr. Olmedo in possible hyperbaric oxygen treatment 3. Patient to call if any changes or anything of concern 4. Follow-up with Dr. Sommer in 1 week Cc: Dr. Mcnair
--- NOTE | 2017-11-21 15:43 | P.OP ---
Date of Procedure: 11/21/17 Preoperative Diagnosis: Open wound radiated tissue right chest wall Postoperative Diagnosis: Same Procedure(s) Performed: Debridement necrotic tissue right chest wall wound Anesthesia: none Surgeon: Rylee Juárez Estimated Blood Loss (ml): 0 Pathology: none sent Condition: stable Disposition: same day Indications for Procedure: Necrotic tissue open wound right chest wall radiated area Description of Procedure: The patient is a 47-year-old white female status post removal of an implantable radiated right chest wall the end of September. The patient at the central portion of the wound open and this has been packed. She recently noted became odorous and had some purulent drainage. This was debrided approximately a week ago. At this time the wound is healing much better with granulation tissue and the bases of it. Small amount of necrotic tissue appears to be present at the borders deep within the wound and this was debrided using sharp dissection. Following this the wound was measured and the wound was noted to be approximately 8.5, by 4.8 cm and 2 cm deep. Following this the wond was well irrigated using saline solution, it was then dried. The wound was then packed using iodoform gauze. The patient tolerated procedure in stable condition. Cc Dr. Mcnair
== END ==
LOC: WWCWWP 14:28
PROVIDERS: ATTEND Surgery
DX: Z53.9 Procedure and treatment not carried out, unspecified reason (principal)

== ENCOUNTER → 2018-03-28 | Outpatient (CLI) | payer OTHER ==
--- NOTE | 2018-03-28 11:23 | CT ---
EXAMINATION TYPE: CT chest wo con DATE OF EXAM: 03/28/2018 COMPARISON: CT chest August 04, 2016 and older CTs. PET/CT December 27, 2015. HISTORY: Asbestos exposure CT DLP: 368 mGycm. Automated Exposure Control for Dose Reduction was Utilized. TECHNIQUE: CT scan of the thorax is performed without IV contrast. FINDINGS: LUNGS: There is persistent mild to moderate underlying emphysematous change most prominent in the upp er lungs. There is focal moderate linear scarring presumed postsurgical in the right upper lobe redem onstrated. There is interval enlargement of superior right lower lobe subpleural nodule now measuring 1.2 x 1.1 cm on axial image 33. There is additional patchy bilateral lower lung linear scarring and/ or atelectasis. Slightly elevated left hemidiaphragm is redemonstrated. No new left-sided nodules are identified. No pleural effusion or pneumothorax is evident. Focal pleural thickening anterior right midlung axial image 20 is no significant change from prior studies. MEDIASTINUM: Lack of IV contrast is noted to limit evaluation for mediastinal and especially hilar a denopathy. There are no definitive greater than 1 cm hilar or mediastinal lymph nodes. No cardiomeg rusty or pericardial effusion is seen. OTHER: Cholecystectomy clips are redemonstrated. There is interval removal of bilateral breast expand ers with mastectomy changes noted. IMPRESSION: Chronic emphysematous and parenchymal changes without acute pulmonary process but there i s enlarging superior right lower lobe 1.2 cm nodule. Developing neoplasm cannot be excluded. Repeat P ET/CT is advised.
== END | disposition home or self-care (01) ==
LOC: RADCTMAIN 10:11
PROVIDERS: ATTEND Internal Medicine Sleep Medicine
DX: J43.9 Emphysema, unspecified (principal); R91.1 Solitary pulmonary nodule
CPT/HCPCS: 71250

== ENCOUNTER → 2018-05-18 | Day surgery (SDC) | payer OTHER ==
[2018-05-17 09:16] VITALS: BMI 21.6
[~2018-05-18] MED LIST changes: -DEXAMETHASONE SOD PHOSPHATE 10 MG/ML 1 ML VIAL IV ONE; +ERTAPENEM 1 GM in SODIUM CHLORIDE 0.9% 50 ML IVPB ONE; -LACTATED RINGERS 1,000 ML IV SCH; -LIDOCAINE 1% 20 ML VIAL (10MG/ML) FOR IV START INTRADERMA PRN; +LIDOCAINE 2% INJ 20 MG/ML SQ ONE; -MIDAZOLAM 2 MG/2 ML VIAL IV PRN; -ONDANSETRON 4 MG/2 ML VIAL IVP ONE; -Pre Op ABX Message 1 EACH MISC MISCELLANE ONE
[2018-05-18 10:05] VITALS: BP 114/65; PULSE 71; RESP 18; TEMP 98.2
[2018-05-18 10:31] LABS: Basophils # (A) 0.1 k/uL (0-0.2); Basophils % (A) 1 %; Eosinophils # (A) 0.2 k/uL (0-0.7); Eosinophils % (A) 3 %; HCT 43.1 % (34.0-46.0); HGB 14.4 gm/dL (11.4-16.0); Lymphocytes # (A) 1.9 k/uL (1.0-4.8); Lymphocytes % (A) 31 %; MCH 32.2 pg (25.0-35.0); MCHC 33.3 g/dL (31.0-37.0); MCV 96.7 fL (80.0-100.0); Mean Platelet Volume 7.4; Monocytes # (A) 0.4 k/uL (0-1.0); Monocytes % (A) 6 %; Neutrophils # (A) 3.5 k/uL (1.3-7.7); Neutrophils % (A) 58 %; Platelet Count 298 k/uL (150-450); RBC 4.46 m/uL (3.80-5.40); RDW 12.5 % (11.5-15.5); WBC 6.1 k/uL (3.8-10.6)
[2018-05-18 11:02] LABS: Blood Urea Nitrogen 16 mg/dL (7-17); Potassium 4.3 mmol/L (3.5-5.1)
--- NOTE | 2018-05-18 15:59 | IR ---
EXAMINATION TYPE: IR cvc insert >=5 years DATE OF EXAM: 05/18/2018 COMPARISON: NONE CLINICAL HISTORY: Infection Needs long-term intravenous access for antibiotics. PROCEDURE: After informed consent, the skin overlying the left upper extremity vein was localized with ultrasoun d and noted to be compressible and patent. An ultrasound image was obtained and submitted on the pat ient's chart. The overlying skin was prepped and draped and Lidocaine was used for local anesthesia. A skin clementina was made with a scalpel. Access was gained to the vein under ultrasound guidance with a 21 gauge needle and a 0.018 inch wire was advanced. Access site was dilated with Peel-Away sheath and catheter tailored to the appropriate length and advanced such that the distal tip is at the cavoa trial junction. Spot image was obtained verifying placement. Catheter was fixed to the skin with chaudhry ture and a sterile dressing was placed following hemostasis. Catheter was aspirated and flushed with saline. Patient was discharged in stable condition without complication. Maximal barrier technique is utilized. Ultrasound image is documented on the chart. Ultrasound used with sterile technique. Fluoro time and fluoroscopic images submitted to document procedure: 19 intraoperative C-arm images, 0.2 minutes fluoroscopy time IMPRESSION: STATUS POST ULTRASOUND AND FLUOROSCOPIC GUIDED PICC LINE PLACEMENT, READY FOR USE. THIS PROCEDURE WAS PERFORMED BY THE UNDERSIGNED.
== END | disposition home or self-care (01) ==
LOC: CATHCVL 09:50
PROVIDERS: ATTEND Radiology Diagnostic Radiology
DX: L59.8 Other specified disorders of the skin and subcutaneous tissue related to radiation (principal); J44.9 Chronic obstructive pulmonary disease, unspecified; E07.9 Disorder of thyroid, unspecified; Z85.3 Personal history of malignant neoplasm of breast; Z92.3 Personal history of irradiation; Z98.51 Tubal ligation status; F41.0 Panic disorder [episodic paroxysmal anxiety]; F17.210 Nicotine dependence, cigarettes, uncomplicated; Z79.890 Hormone replacement therapy; Z79.899 Other long term (current) drug therapy; Y84.2 Radiological procedure and radiotherapy as the cause of abnormal reaction of the patient, or of later complication, without mention of misadventure at the time of the procedure
CPT/HCPCS: 36573; 80051; 82565; 84520; 85025; C1751; C1769; J2001; J1335

== ENCOUNTER 2020-09-12 10:33 | Emergency (ER) | payer OTHER, MEDICARE ==
[2020-09-12 10:38] VITALS: TEMP 98.8
[2020-09-12] MEDS ORDERED: RX INFO: IV CONTRAST WAS GIVEN 1 EACH MISC MISCELLANE PRN (11:06)
[2020-09-12] MEDS ORDERED: KETOROLAC 15 MG/ML 1 ML VIAL IVP STA ×2 (11:13→12:59)
[2020-09-12] MEDS ORDERED: KETOROLAC 15 MG/ML 1 ML VIAL IM STA (11:13)
[2020-09-12] MEDS ORDERED: DIAZEPAM 5 MG/ML 2 ML INJ IVP STA (11:25)
[2020-09-12 11:39] LABS: Basophils % (A) 0 %; Eosinophils # (A) 0.1 k/uL (0-0.7); Eosinophils % (A) 1 %; HCT 44.1 % (34.0-46.0); HGB 15.1 gm/dL (11.4-16.0); Lymphocytes # (A) 1.7 k/uL (1.0-4.8); Lymphocytes % (A) 19 %; MCHC 34.2 g/dL (31.0-37.0); MCV 99.6 fL (80.0-100.0); Mean Platelet Volume 7.6; Monocytes # (A) 0.4 k/uL (0-1.0); Monocytes % (A) 5 %; Neutrophils # (A) 6.5 k/uL (1.3-7.7); Neutrophils % (A) 73 %; Platelet Count 464 k/uL (150-450); RBC 4.43 m/uL (3.80-5.40); RDW 12.6 % (11.5-15.5); WBC 8.9 k/uL (3.8-10.6)
[2020-09-12 11:53] LABS: ALT 25 U/L (4-34); African American GFR (CKD) >90 (>60 ml/min/1.73 sqM); Anion Gap 11 mmol/L; Blood Urea Nitrogen 8 mg/dL (7-17); C Reactive Protein 0.9 mg/dL (<1.0); Calcium 10.7 mg/dL (8.4-10.2); Carbon Dioxide 18 mmol/L (22-30); Chloride 105 mmol/L (98-107); Glucose 145 mg/dL (74-99); Non-African American GFR(CKD) >90 (>60 ml/min/1.73 sqM); Sodium 134 mmol/L (137-145); Total Bilirubin 0.6 mg/dL (0.2-1.3)
--- NOTE | 2020-09-12 12:13 | CT ---
EXAMINATION TYPE: CT chest w con DATE OF EXAM: 09/12/2020 COMPARISON: 01/25/2019 which is better findings: No pneumothorax is marginal HISTORY: right side posterior chest/back pain CT DLP: 263.4 mGycm Automated exposure control for dose reduction was used. TECHNIQUE: CT scan of the chest is performed with IV Contrast, patient injected with 100 mL of Isovue 300. MIP Images are created on CT scanner and reviewed. 3D reconstructed images are created on an independent workstation and reviewed. FINDINGS: LUNGS: There is a large superior segment right lower lobe lung mass or measuring approximately 8 x 18 cm. There is extension outside the rib cage into the underlying subcutaneous soft tissues. There is adjacent rib destruction. Emphysematous changes are seen. There is biapical pleural thickening with p leural-based subcentimeter nodularity. Right upper lobe calcification noted compatible with granuloma. Bilateral subsegmental areas of conso lidation are most typical of atelectasis. MEDIASTINUM: The right hilum measuring short axis II.2 cm. Additional shotty adenopathy in the medial . Aorta of normal caliber. Within the region of the abdomen 1 pulmonary arteries centrally. Trace per icardial fluid. OTHER: Surgical clips are seen in the gallbladder fossa. Normal hypertrophic and degenerative change spine. There is a very small hiatal hernia noted. Hepatic dome lesion measuring 1 no urinary 1.4 cm in stable from prior exam of 2016 possibly related to hemangioma. Indeterminate 7 mm left adrenal nod ule. IMPRESSION: 1. Large by 8 x 8 cm right superior segment posterior lung mass with adjacent rib destruction extendi ng into the subcutaneous soft tissues compatible with malignancy. 2. Pathologic right hilar lymphadenopathy. COPD 3. Indeterminate hepatic lesion stable from prior exam likely on the basis of a hemangioma. 4. indeterminate 7 mm left adrenal mass. Was present on prior CT scan of 2019 but only measured 5.7 m m.
[2020-09-12 12:14] VITALS: RESP 18
--- NOTE | 2020-09-12 12:29 | ED ---
Back Pain HPI - General Chief Complaint: Back Pain/Injury Stated Complaint: back/side pain Time Seen by Provider: 09/12/20 10:39 Source: patient Limitations: no limitations - History of Present Illness Initial Comments: Patient is a 50-year-old female, with history of right-sided breast cancer with bilateral mastectomies, COPD, presenting to the emergency Department with compla ints of right sided thoracic discomfort this been increasing over the past 2 weeks. She states when she was looking at her back, she noticed a bump on the right thoracic area, she is unsure if this is been there in the past but has never noticed it before. She states the pain is mostly in this right thoracic area but she does have radiation of the pain towards the front across her wrists at times. She denies any difficulty breathing, no fevers or chills. She states she doesn't history of partial right lung resection secondary to collapse about 5-6 years ago. She's had a skin graft in the area as well to reconstruct her right breast. She denies any falls or trauma to the area. He, no abdominal pain. She has no further complaints at this time. Her vitals are stable upon arrival. - Related Data Home Medications Medication Instructions Recorded Confirmed ALPRAZolam [Xanax] 0.5 mg PO QID PRN 08/25/17 09/12/20 Ibuprofen [Motrin] 800 mg PO Q8H PRN 09/26/17 09/12/20 Levothyroxine Sodium [Synthroid] 75 mcg PO DAILY 12/13/17 09/12/20 Citalopram Hydrobromide [CeleXA] 20 mg PO DAILY 05/17/18 09/12/20 Acetaminophen Tab [Tylenol] 650 mg PO Q4H PRN 09/12/20 09/12/20 Cyclobenzaprine [Flexeril] 10 mg PO TID PRN 09/12/20 09/12/20 Wheeler (Unknown Dose) 0.5 tab PO ONCE 09/12/20 09/12/20 Previous Rx's Medication Instructions Recorded HYDROcodone/APAP 7.5-325MG [Wheeler 1 tab PO Q6HR PRN 3 Days #12 tab 09/12/20 7.5-325] Ketorolac [Toradol] 10 mg PO Q8HR #15 tab 09/12/20 Allergies Allergy/AdvReac Type Severity Reaction Status Date / Time No Known Allergies Allergy Verified 09/12/20 11:50 Review of Systems ROS Statement: Those systems with pertinent positive or pertinent negative responses have been documented in the HPI. ROS Other: All systems not noted in ROS Statement are negative. Past Medical History Past Medical History: Cancer, COPD, Thyroid Disorder Additional Past Medical History / Comment(s): R breast cancer with bilateral mastectomies with radiation, History of Any Multi-Drug Resistant Organisms: None Reported Past Surgical History: Breast Surgery, Cholecystectomy, Hysterectomy, Tubal Ligation Additional Past Surgical History / Comment(s): bilateral mastectomies with reconstruction, D&C, RIGHT LUNG SURGERY Past Anesthesia/Blood Transfusion Reactions: No Reported Reaction, Motion Sickness Past Psychological History: Anxiety, Panic Disorder Smoking Status: Current every day smoker Past Alcohol Use History: Occasional Past Drug Use History: None Reported - Past Family History Father Family Medical History: Cancer Additional Family Medical History / Comment(s): Father is healthy and is 75yrs old. Mother Family Medical History: No Reported History Additional Family Medical History / Comment(s): Mother is healthy and is 75 yrs old. General Exam - General Exam Comments Initial Comments: GENERAL: Patient is well-developed and well-nourished. Patient is nontoxic and in mild distress. HEAD: Atraumatic, normocephalic. EYES: Pupils equal round and reactive to light, extraocular movements intact, sclera anicteric, conjunctiva are normal. Eyelids were unremarkable. ENT: Nares patent, oropharynx clear without exudates. Moist mucous membranes. NECK: Normal range of motion, supple without lymphadenopathy or JVD. LUNGS: Unlabored respirations. Breath sounds clear to auscultation bilaterally and equal. No wheezes rales or rhonchi. HEART: Regular rate and rhythm without murmurs, rubs or gallops. ABDOMEN: Soft, nontender, normoactive bowel sounds. No guarding, no rebound. No masses appreciated. : Deferred MUSCULOSKELETAL: Normal extremities with adequate strength and normal range of motion, no pitting or edema. No clubbing or cyanosis. Patient has pain with palpation of the right thoracic area, there is scar tissue in this area as well as a 2 cm in diameter cystlike structure in the area which is painful to the touch. there is pain with palpation of the right posterior and lateral ribs. There is no skin changes other than the scarring. NEUROLOGICAL: Patient is alert and oriented x 3. Normal speech, normal gait. PSYCH: Normal mood, normal affect. SKIN: Warm, Dry, normal turgor, no rashes or lesions noted. Limitations: no limitations Course Vital Signs 09/12/20 09/12/20 09/12/20 10:35 12:12 13:15 Temperature 98.8 F Pulse Rate 115 H 90 88 Respiratory 20 18 18 Rate Blood Pressure 161/100 113/78 130/90 O2 Sat by Pulse 98 99 98 Oximetry Medical Decision Making - Medical Decision Making Patient is a 50-year-old female with history of right-sided breast cancer with bilateral mastectomies, history of right partial lung resection, presenting with thoracic back pain increasing over the past 2 weeks., Her vitals are stable. She does have a 2 cm in diameter cystlike bump on her right posterior thoracic area which is painful. Labs are within normal limits. CT of the chest shows a large 18 x 8 cm right superior segment posterior lung mass with adjacent rib destruction extending into the subcutaneous soft tissues compatible with malignancy. There are also shows indeterminate 7 mm left adrenal mass, this was present before but a slightly enlarged. I discussed these findings with the patient. I also spoke to Dr. Bedoya, who is the patient's boiler/chiller operator, she made an appointment for her next week. Reasons vital signs remained stable. I did give her some pain medicine and Valium, she does report improvement. I will discharge her home with follow-up. I will give her prescription for pain co ntrol, she does have muscle relaxers at home that she can continue with. She is agreeable to this plan of care. Return parameters were discussed with her and she verbalized understanding. Case discussed with Dr. Torres. - Lab Data Result diagrams: 09/12/20 11:19 09/12/20 11:19 Lab Results 09/12/20 09/12/20 Range/Units 11:19 11:19 WBC 8.9 (3.8-10.6) k/uL RBC 4.43 (3.80-5.40) m/uL Hgb 15.1 (11.4-16.0) gm/dL Hct 44.1 (34.0-46.0) % MCV 99.6 (80.0-100.0) fL MCH 34.0 (25.0-35.0) pg MCHC 34.2 (31.0-37.0) g/dL RDW 12.6 (11.5-15.5) % Plt Count 464 H (150-450) k/uL MPV 7.6 Neutrophils % 73 % Lymphocytes % 19 % Monocytes % 5 % Eosinophils % 1 % Basophils % 0 % Neutrophils # 6.5 (1.3-7.7) k/uL Lymphocytes # 1.7 (1.0-4.8) k/uL Monocytes # 0.4 (0-1.0) k/uL Eosinophils # 0.1 (0-0.7) k/uL Basophils # 0.0 (0-0.2) k/uL ESR 20 (0-20) mm/hr Sodium 134 L (137-145) mmol/L Potassium 4.7 (3.5-5.1) mmol/L Chloride 105 (98-107) mmol/L Carbon Dioxide 18 L (22-30) mmol/L Anion Gap 11 mmol/L BUN 8 (7-17) mg/dL Creatinine 0.48 L (0.52-1.04) mg/dL Est GFR (CKD-EPI)AfAm >90 (>60 ml/min/1.73 sqM) Est GFR (CKD-EPI)NonAf >90 (>60 ml/min/1.73 sqM) Glucose 145 H (74-99) mg/dL Calcium 10.7 H (8.4-10.2) mg/dL Total Bilirubin 0.6 (0.2-1.3) mg/dL AST 40 H (14-36) U/L ALT 25 (4-34) U/L Alkaline Phosphatase 115 (38-126) U/L C-Reactive Protein 0.9 (<1.0) mg/dL Total Protein 7.6 (6.3-8.2) g/dL Albumin 4.5 (3.5-5.0) g/dL Disposition Clinical Impression: Right-sided thoracic back pain, Mass of right lung Disposition: HOME SELF-CARE Condition: Stable Instructions (If sedation given, give patient instructions): Thoracic Pain (ED) Additional Instructions: Please return to the Emergency Department if symptoms worsen or any other concerns. Trial of Toradol and Wheeler for pain control, may continue with muscle relaxers at night time. May also apply ice or heat to the area for comfort. Please follow-up with Dr. Bedoya as discussed, Appointment for 09/16/20, @ 1:30pm. Prescriptions: HYDROcodone/APAP 7.5-325MG [Wheeler 7.5-325] 1 tab PO Q6HR PRN 3 Days #12 tab PRN Reason: Pain Ketorolac [Toradol] 10 mg PO Q8HR #15 tab Is patient prescribed a controlled substance at d/c from ED?: Yes When asked, does pt state using other controlled substances?: No If prescribed controlled substance>3 days was MAPS reviewed?: Prescribed <3 Days If opioid is for acute pain is fill amount 7 days or less?: Yes If Rx opioid, was Start Talking consent form obtained?: Yes Referrals: Elias Mcnair MD [Primary Care Provider] - 1-2 days Kd Bedoya MD [STAFF PHYSICIAN] - 1-2 days Time of Disposition: 13:20
[2020-09-12 12:31] LABS: AST 40 U/L (14-36); Albumin 4.5 g/dL (3.5-5.0); Alkaline Phosphatase 115 U/L (38-126); Potassium 4.7 mmol/L (3.5-5.1); Total Protein 7.6 g/dL (6.3-8.2)
[2020-09-12 12:49] LABS: Erythrocyte Sedimentation Rate 20 mm/hr (0-20)
[2020-09-12 13:17] VITALS: BP 130/90; PULSE 88
== END 2020-09-12 13:49 | disposition home or self-care (01) ==
LOC: EC 10:33
DX: M54.6 Pain in thoracic spine (principal); R91.8 Other nonspecific abnormal finding of lung field; J44.9 Chronic obstructive pulmonary disease, unspecified; F41.9 Anxiety disorder, unspecified; F17.200 Nicotine dependence, unspecified, uncomplicated; Z85.3 Personal history of malignant neoplasm of breast
CPT/HCPCS: 36415; 71260; 80053; 85025; 85652; 86140; 96372; 96374; 96375; 96376; 99284

== ENCOUNTER 2020-09-24 08:56 | Day surgery (SDC) | payer MEDICARE, OTHER ==
[2020-09-24 09:55] LABS: Mean Platelet Volume 7.5; Platelet Count 501 k/uL (150-450)
[2020-09-24 10:01] LABS: Prothrombin Time 10.9 sec (9.0-12.0)
--- NOTE | 2020-09-24 10:23 | US ---
ULTRASOUND GUIDED CORE BIOPSY RIGHT BACK MASS: CLINICAL HISTORY: Right neck mass FINDINGS: The procedure was explained to the patient. The risks, complications, benefits and alternatives were discussed and any questions were answered. Informed consent was obtained. Patient was placed supin e on the ultrasound table and prepped and draped in the usual sterile fashion. Utilizing a 18-gauge core biopsy needle, two passes were made into the right neck mass. Patient was stable throughout the procedure. Pathology is pending. All elements of maximal barrier technique were utilized. IMPRESSION: 1. Successful ultrasound core biopsy of the right back mass.
[2020-09-24 10:55] VITALS: RESP 18; TEMP 98.1
[2020-09-24 10:56] VITALS: BP 136/70; PULSE 77
== END 2020-09-24 10:00 | disposition home or self-care (01) ==
LOC: RADPROMAIN 08:56
PROVIDERS: ATTEND Internal Medicine Critical Care Medicine
DX: C34.90 Malignant neoplasm of unspecified part of unspecified bronchus or lung (principal)
CPT/HCPCS: 20206; 76942; 85049; 85610; 88305; 88341; 88342

== ENCOUNTER 2020-10-01 20:36 | Inpatient (IN) | payer MEDICARE, OTHER ==
--- NOTE | 2020-10-01 23:19 | ED ---
Chest Pain HPI - General Chief Complaint: Chest Pain Stated Complaint: rib pain Time Seen by Provider: 10/01/20 22:10 Source: patient Mode of arrival: ambulatory Limitations: no limitations - History of Present Illness Initial Comments: 's patient is a 50-year-old woman complaining of right thoracic pain. She states is been going on for days to weeks. She had been seen for this same pain and was diagnosed with a mass suspected be tumor. Patient taking [place] but not having adequate relief. She states she is not getting any rest. Denies fever or chills. No cough. No dyspnea or hemoptysis. No palpitations MD Complaint: chest pain -: days(s) Onset: during rest Pain Location: right chest Pain Radiation: none Severity: severe Quality: aching Consistency: constant Improves With: nothing Worsens With: nothing Treatments Prior to Arrival: other - Related Data Home Medications Medication Instructions Recorded Confirmed ALPRAZolam [Xanax] 0.5 mg PO QID PRN 08/25/17 10/02/20 Levothyroxine Sodium [Synthroid] 75 mcg PO DAILY 12/13/17 10/02/20 Previous Rx's Medication Instructions Recorded Dexamethasone [Decadron] 4 mg PO TID #90 tablet 10/06/20 Albuterol Nebulized [Ventolin 2.5 mg INHALATION RT-QID PRN #100 10/08/20 Nebulized] nebule Gabapentin [Neurontin] 200 mg PO BID #60 cap 10/08/20 Morphine Sulfate ER [Ms Contin] 15 mg PO Q12HR tablet 10/08/20 Pantoprazole [Protonix] 40 mg PO AC-BID #60 tablet. 10/08/20 Sennosides-Docusate Sodium 2 each PO BID #60 tab 10/08/20 [Senokot-S] bisacodyL [Dulcolax] 10 mg RECTAL DAILY PRN #30 supp 10/08/20 guaiFENesin [Mucinex] 600 mg PO Q12HR PRN #60 tablet 10/08/20 polyethylene glycoL 3350 [Miralax] 17 gm PO DAILY #30 powd.pack 10/08/20 Allergies Allergy/AdvReac Type Severity Reaction Status Date / Time No Known Allergies Allergy Verified 10/02/20 07:01 Review of Systems ROS Statement: Those systems with pertinent positive or pertinent negative responses have been documented in the HPI. ROS Other: All systems not noted in ROS Statement are negative. Constitutional: Denies: fever, chills Respiratory: Reports: as per HPI, dyspnea. Denies: cough, wheezes, hemoptysis Cardiovascular: Reports: as per HPI, chest pain. Denies: palpitations, orthopnea, edema Gastrointestinal: Denies: abdominal pain, nausea, vomiting Genitourinary: Denies: dysuria, hematuria Musculoskeletal: Denies: back pain Skin: Denies: rash Neurological: Denies: headache, weakness EKG Findings - EKG Results: EKG: interpreted by ERMD, sinus rhythm (Rate 86 bpm), normal axis, normal QRS, normal ST/T, no acute changes Past Medical History Past Medical History: Cancer, COPD, Thyroid Disorder Additional Past Medical History / Comment(s): R breast cancer (2018) with bilateral mastectomies with radiation, History of Any Multi-Drug Resistant Organisms: None Reported Past Surgical History: Breast Surgery, Cholecystectomy, Hysterectomy, Tubal Ligation Additional Past Surgical History / Comment(s): bilateral mastectomies with reconstruction, D&C, RIGHT partial lobectomy, Past Anesthesia/Blood Transfusion Reactions: No Reported Reaction, Motion Sickness Past Psychological History: Anxiety, Panic Disorder Smoking Status: Current every day smoker Past Alcohol Use History: None Reported Past Drug Use History: None Reported - Past Family History Father Family Medical History: Cancer Additional Family Medical History / Comment(s): Father is healthy and is 75yrs old. Mother Family Medical History: No Reported History Additional Family Medical History / Comment(s): Mother is healthy and is 75 yrs old. General Exam Limitations: no limitations General appearance: alert, in no apparent distress Head exam: Present: atraumatic, normocephalic Eye exam: Present: normal appearance. Absent: scleral icterus, conjunctival injection Neck exam: Present: normal inspection Respiratory exam: Present: normal lung sounds bilaterally, chest wall tenderness. Absent: respiratory distress, wheezes, rales, rhonchi, stridor, accessory muscle use, decreased breath sounds, prolonged expiratory Cardiovascular Exam: Present: regular rate, normal rhythm, normal heart sounds. Absent: systolic murmur, diastolic murmur, rubs, gallop GI/Abdominal exam: Present: soft. Absent: distended, tenderness, guarding, rebound, rigid, mass Extremities exam: Present: normal inspection, normal capillary refill. Absent: pedal edema, calf tenderness Back exam: Present: normal inspection. Absent: CVA tenderness (R), CVA tenderness (L) Neurological exam: Present: alert Skin exam: Present: warm, dry, intact, normal color. Absent: rash Course Vital Signs 10/01/20 10/01/20 10/01/20 20:39 22:33 23:45 Temperature 98.7 F Pulse Rate 111 H 103 H 67 Pulse Rate [ 103 H Pulse Oximetery ] Respiratory 17 18 18 Rate Blood Pressure 144/77 140/88 134/86 Blood Pressure [Left Arm] O2 Sat by Pulse 99 96 99 Oximetry 10/02/20 10/02/20 10/02/20 00:50 02:00 03:30 Temperature Pulse Rate 81 77 83 Pulse Rate [ Pulse Oximetery ] Respiratory 18 20 20 Rate Blood Pressure 125/71 126/86 136/80 Blood Pressure [Left Arm] O2 Sat by Pulse 98 95 95 Oximetry 10/02/20 10/02/20 10/02/20 05:00 05:14 06:30 Temperature 99.0 F Pulse Rate 83 90 Pulse Rate [ 89 Pulse Oximetery ] Respiratory 22 18 22 Rate Blood Pressure 133/91 124/76 Blood Pressure 114/73 [Left Arm] O2 Sat by Pulse 95 93 L 95 Oximetry 10/02/20 10/02/20 10/02/20 09:00 11:15 14:45 Temperature 98.0 F Pulse Rate 86 107 H 95 Pulse Rate [ Pulse Oximetery ] Respiratory 18 22 18 Rate Blood Pressure 116/81 127/90 126/88 Blood Pressure [Left Arm] O2 Sat by Pulse 96 96 Oximetry 10/02/20 10/02/20 17:30 20:00 Temperature 99.2 F Pulse Rate 85 89 Pulse Rate [ Pulse Oximetery ] Respiratory 18 18 Rate Blood Pressure 128/56 123/73 Blood Pressure [Left Arm] O2 Sat by Pulse 98 97 Oximetry Chest Pain [facility] Patient is a 50-year-old woman here for intractable chest pain. She has been attempting to manage her pain with outpatient medication but without success. Here she required multiple rounds of IV medication and still having breakthrough pain. Patient be admitted for further evaluation and treatment Disposition Clinical Impression: Intractable pain Disposition: ADMITTED IP TO THIS [facility] Condition: Fair
[2020-10-01] MEDS ORDERED: MORPHINE SULFATE 4 MG/ML SYRINGE IV STA (23:49)
--- NOTE | 2020-10-02 00:17 | XR ---
EXAMINATION TYPE: XR chest 1V portable DATE OF EXAM: 10/02/2020 COMPARISON: 12/13/2015 HISTORY: Chest pain TECHNIQUE: Single view FINDINGS: There is large rounded 9 cm density in the right midlung field. Left lung is clear. There i s no heart failure. Heart size is normal. There is slight blunting of the costophrenic angles. IMPRESSION: Large rounded density on the right side could be loculated pleural fluid. Lateral view re commended for evaluation. No heart failure. Normal heart. Density appears new compared to old exam.
[2020-10-02 00:25] LABS: ALT 23 U/L (4-34); AST 43 U/L (14-36); African American GFR (CKD) >90 (>60 ml/min/1.73 sqM); Albumin 4.3 g/dL (3.5-5.0); Alkaline Phosphatase 103 U/L (38-126); Anion Gap 11 mmol/L; Blood Urea Nitrogen 13 mg/dL (7-17); Calcium 10.8 mg/dL (8.4-10.2); Carbon Dioxide 22 mmol/L (22-30); Chloride 101 mmol/L (98-107); Glucose 108 mg/dL (74-99); Magnesium 1.7 mg/dL (1.6-2.3); Non-African American GFR(CKD) >90 (>60 ml/min/1.73 sqM); Potassium 4.6 mmol/L (3.5-5.1); Sodium 134 mmol/L (137-145); Total Bilirubin 0.4 mg/dL (0.2-1.3); Total Protein 7.2 g/dL (6.3-8.2)
[2020-10-02] MEDS ORDERED: HYDROmorphone 0.5 MG/0.5 ML SYRINGE IVP STA (00:32)
[2020-10-02 00:55] LABS: Basophils % (A) 1 %; Eosinophils # (A) 0.1 k/uL (0-0.7); Eosinophils % (A) 1 %; HCT 39.7 % (34.0-46.0); HGB 13.4 gm/dL (11.4-16.0); Lymphocytes # (A) 1.4 k/uL (1.0-4.8); Lymphocytes % (A) 15 %; MCH 33.5 pg (25.0-35.0); MCHC 33.7 g/dL (31.0-37.0); MCV 99.3 fL (80.0-100.0); Mean Platelet Volume 8.9; Monocytes # (A) 0.9 k/uL (0-1.0); Monocytes % (A) 9 %; Neutrophils # (A) 6.7 k/uL (1.3-7.7); Neutrophils % (A) 73 %; Platelet Count 328 k/uL (150-450); RDW 13.1 % (11.5-15.5); WBC 9.3 k/uL (3.8-10.6)
[2020-10-02] MEDS ORDERED: HYDROmorphone 1 MG/ML 1 ML SYRINGE IVP STA ×3 (01:49→04:59)
[2020-10-02 03:40] LABS: Prothrombin Time 10.4 sec (9.0-12.0)
[2020-10-02] MEDS ORDERED: NALOXONE 0.4 MG/ML 1 ML VIAL IV PRN (04:52)
[2020-10-02] MEDS ORDERED: HYDROmorphone 0.5 MG/0.5 ML SYRINGE IVP PRN (04:52)
[2020-10-02] MEDS ORDERED: fentaNYL (PF) 50 MCG/ML 2 ML AMP IVP STA (06:35)
--- NOTE | 2020-10-02 08:59 | P.HPIM ---
History of Present Illness H&P Date: 10/02/20 Chief Complaint: Chest wall pain The patient is here due to chest wall pain. The patient is a breast cancer survivor who has now had sudden large chest mass noted on recent CT scan. We have had difficulty with pain control. The patient now has been admitted related to this pain control. Dilaudid has now been started. Question need for oral Dilaudid versus fentanyl patch. Oncology consult. No cough no hematemesis. [place] has not been controlling the patient as predicted. Review of Systems Constitutional: Denies chills, Denies fever Eyes: denies blurred vision, denies pain Ears, nose, mouth and throat: Denies headache, Denies sore throat Cardiovascular: Reports chest pain Respiratory: Reports as per HPI Gastrointestinal: Denies abdominal pain, Denies diarrhea, Denies nausea, Denies vomiting Genitourinary: Denies dysuria, Denies hematuria Musculoskeletal: Denies myalgias Past Medical History Past Medical History: Cancer, COPD, Thyroid Disorder Additional Past Medical History / Comment(s): R breast cancer (2018) with bilateral mastectomies with radiation, History of Any Multi-Drug Resistant Organisms: None Reported Past Surgical History: Breast Surgery, Cholecystectomy, Hysterectomy, Tubal Ligation Additional Past Surgical History / Comment(s): bilateral mastectomies with reconstruction, D&C, RIGHT partial lobectomy, Past Anesthesia/Blood Transfusion Reactions: No Reported Reaction, Motion Sickness Past Psychological History: Anxiety, Panic Disorder Smoking Status: Current every day smoker Past Alcohol Use History: None Reported Past Drug Use History: None Reported - Past Family History Father Family Medical History: Cancer Additional Family Medical History / Comment(s): Father is healthy and is 75yrs old. Mother Family Medical History: No Reported History Additional Family Medical History / Comment(s): Mother is healthy and is 75 yrs old. Medications and Allergies Home Medications Medication Instructions Recorded Confirmed Type ALPRAZolam [Xanax] 0.5 mg PO QID PRN 08/25/17 10/02/20 History Levothyroxine Sodium [Synthroid] 75 mcg PO DAILY 12/13/17 10/02/20 History HYDROcodone/APAP 10-325MG [[place] 1 tab PO Q6H PRN 10/02/20 10/02/20 History 10-325] Allergies Allergy/AdvReac Type Severity Reaction Status Date / Time No Known Allergies Allergy Verified 10/02/20 07:01 Physical Exam Vitals: Vital Signs Temp Pulse Pulse Resp BP Pulse Ox 10/02/20 06:30 90 22 124/76 95 10/02/20 05:00 83 22 133/91 95 10/02/20 03:30 83 20 136/80 95 10/02/20 02:00 77 20 126/86 95 10/02/20 00:50 81 18 125/71 98 10/01/20 23:45 67 18 134/86 99 10/01/20 22:33 103 H 103 H 18 140/88 96 10/01/20 20:39 98.7 F 111 H 17 144/77 99 Intake and Output 10/01/20 10/02/20 10/02/20 22:59 06:59 14:59 Other: Weight 65.771 kg - Constitutional General appearance: average body habitus, cooperative - EENT Eyes: no abnormal pupil - Neck Neck: no lymphadenopathy - Respiratory Respiratory: bilateral: diminished - Cardiovascular Rhythm: regular Heart sounds: normal: S1, S2 Abnormal Heart Sounds: no S3 Gallop - Gastrointestinal General gastrointestinal: soft, tenderness - Neurologic Neurologic: CNII-XII intact - Psychiatric Psychiatric: A&O x's 3, appropriate affect, intact judgment & insight Results CBC & Chem 7: 10/01/20 23:57 10/01/20 23:57 Labs: Abnormal Lab Results - Last 24 Hours (Table) 10/01/20 10/02/20 Range/Units 23:57 03:00 D-Dimer 0.67 H (<0.60) mg/L FEU Sodium 134 L (137-145) mmol/L Glucose 108 H (74-99) mg/dL Calcium 10.8 H (8.4-10.2) mg/dL AST 43 H (14-36) U/L Assessment and Plan (1) Intractable pain Current Visit: Yes Status: Acute Code(s): R52 - PAIN, UNSPECIFIED SNOMED Code(s): 00307230 (2) History of breast cancer in female Current Visit: No Status: Acute Code(s): Z85.3 - PERSONAL HISTORY OF MALIGNANT NEOPLASM OF BREAST SNOMED Code(s): 797596130 (3) Mass of right lung Current Visit: No Status: Acute Code(s): R91.8 - OTHER NONSPECIFIC ABNORMAL FINDING OF LUNG FIELD SNOMED Code(s): 898205251 Plan: The patient has intractable chest wall pain related to lung mass. No prior history of breast cancer. Pain control is necessary. Consult oncology. Prognosis is guarded.
[2020-10-02] MEDS: ALPRAZolam 0.5 MG TAB PO PRN ×2 (09:02→21:19)
[2020-10-02] MEDS: HYDROmorphone 1 MG/ML 1 ML SYRINGE IVP PRN ×6 (09:03→23:36)
[2020-10-02] MEDS: HEPARIN SODIUM,PORCINE/PF 5,000 UNIT/0.5 ML SYRINGE SQ SCH ×2 (09:03→21:19)
[2020-10-02] MEDS: LEVOTHYROXINE 75 MCG TAB PO SCH (09:12)
--- NOTE | 2020-10-02 13:07 | P.CONS ---
History of Present Illness - Reason for Consult Consult date: 10/02/20 Protruding Lung Mass Requesting physician: Elias Mcnair - Chief Complaint Pain from Mass - History of Present Illness Sravanthi is a pleasant 50 year old female who was last seen by Dr. Oneill in the office in August of 2016. She originally presented with spontaneous right pneum othorax in ,she ended up having chest tube placed,CT scan of chest done on 12/04/2015 revealed extensive subcutaneous ride sided emphysema,centrilobular lung emphysema and biapical pleural parenchymal scarring. 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 On 12/27/2015,PET scan did not reveal evidence of disease. She had a remote history of right breast cancer,in 2006,stage I (T1a,0.4cm,N0,ER/OR+ and HER2/LAVINIA negative) and DCIS,she had bilateral mastectomies and received adjuvant radiation therapy to right chest wall due to close margins of DCIS and completed 5 years of adjuvant tamoxifen. The pathology was reviewed at [facility],they disagreed with mesothelioma d iagnosed and it was called reactive mesothelial cells. She continued on monitoring over the next year, with no evidence of malignancy. Repeat CT scan of chest on 03/08/2016 revealed no suspicious finding. Repeat CT scan on 08/04/2016 revealed stable finding. She denied any history of known asbestos She was advised to continual 6-12 month visits however she did not show for one year follow-up and did not reschedule. On August 2020 she noticed increased pain and swelling on right back. CT scan of chest revealed 8x8cm mass in the right superior section of the posterior right lung with adjacent rib destruction, Right Hilar Lymphadenopathy, A core Biopsy of this lesion was performed on 09/24/20 revealing. Adenocarcinoma, consistent with primary lung cancer. She now presents to emergency with complaints of pain, unrelieved with home methods. She is laying on left side, unable to lay on back. She is in apparent pain, significant other at bedside. Review of Systems All systems: negative Constitutional: Reports as per HPI Past Medical History Past Medical History: Cancer, COPD, Thyroid Disorder Additional Past Medical History / Comment(s): R breast cancer (2018) with bilateral mastectomies with radiation, History of Any Multi-Drug Resistant Organisms: None Reported Past Surgical History: Breast Surgery, Cholecystectomy, Hysterectomy, Tubal Ligation Additional Past Surgical History / Comment(s): bilateral mastectomies with reconstruction, D&C, RIGHT partial lobectomy, Past Anesthesia/Blood Transfusion Reactions: No Reported Reaction, Motion Sickn ess Past Psychological History: Anxiety, Panic Disorder Smoking Status: Current every day smoker Past Alcohol Use History: None Reported Past Drug Use History: None Reported - Past Family History Father Family Medical History: Cancer Additional Family Medical History / Comment(s): Father is healthy and is 75yrs old. Mother Family Medical History: No Reported History Additional Family Medical History / Comment(s): Mother is healthy and is 75 yrs old. Medications and Allergies Home Medications Medication Instructions Recorded Confirmed Type ALPRAZolam [Xanax] 0.5 mg PO QID PRN 08/25/17 10/02/20 History Levothyroxine Sodium [Synthroid] 75 mcg PO DAILY 12/13/17 10/02/20 History HYDROcodone/APAP 10-325MG [[place] 1 tab PO Q6H PRN 10/02/20 10/02/20 History 10-325] Allergies Allergy/AdvReac Type Severity Reaction Status Date / Time No Known Allergies Allergy Verified 10/02/20 07:01 Physical Exam Vitals: Vital Signs Temp Pulse Pulse Resp BP Pulse Ox 10/02/20 11:15 98.0 F 107 H 22 127/90 96 10/02/20 09:00 86 18 116/81 96 10/02/20 06:30 90 22 124/76 95 10/02/20 05:00 83 22 133/91 95 10/02/20 03:30 83 20 136/80 95 10/02/20 02:00 77 20 126/86 95 10/02/20 00:50 81 18 125/71 98 10/01/20 23:45 67 18 134/86 99 10/01/20 22:33 103 H 103 H 18 140/88 96 10/01/20 20:39 98.7 F 111 H 17 144/77 99 Intake and Output 10/01/20 10/02/20 10/02/20 22:59 06:59 14:59 Other: Weight 65.771 kg - Constitutional General appearance: cooperative, mild distress - EENT Eyes: EOMI, PERRLA ENT: NA/AT, normal oropharynx - Respiratory Respiratory: bilateral: diminished - Cardiovascular Rhythm: regular - Gastrointestinal General gastrointestinal: distended, soft - Integumentary Integumentary: pale - Neurologic Neurologic: CNII-XII intact - Musculoskeletal Musculoskeletal: gait normal - Psychiatric Psychiatric: A&O x's 3, appropriate affect, intact judgment & insight Results CBC & Chem 7: 10/01/20 23:57 10/02/20 13:17 Labs: Abnormal Lab Results - Last 24 Hours (Table) 10/01/20 10/02/20 Range/Units 23:57 03:00 D-Dimer 0.67 H (<0.60) mg/L FEU Sodium 134 L (137-145) mmol/L Glucose 108 H (74-99) mg/dL Calcium 10.8 H (8.4-10.2) mg/dL AST 43 H (14-36) U/L Assessment and Plan (1) Intractable pain Current Visit: Yes Status: Acute Code(s): R52 - PAIN, UNSPECIFIED SNOMED Code(s): 95708093 (2) Mass of right lung Current Visit: No Status: Acute Code(s): R91.8 - OTHER NONSPECIFIC ABNORMAL FINDING OF LUNG FIELD SNOMED Code(s): 223505055 (3) Right-sided thoracic back pain Current Visit: No Status: Acute Code(s): M54.6 - PAIN IN THORACIC SPINE SNOMED Code(s): 296536292 Plan: Assessment and Recommendations: Right Destructive Lung Mass - Positive Adenocarcinoma proven pathology, consistent with lung primary - Staging scans will be ordered after we can control pain so she can tolerate positioning for tests - Bone scan and MRI Brain - PET scan as outpatient - NGS and PDL1 molecular testing will be ordered through office on pathology Intractable Pain due to Malignancy - Fentanyl Patch - Dilaudid IV pRN - Add Gabapentin - Add Dexamethasone 4mg IV q8 for anti-inflammatory effects, PPI ordered - Bowel regimen for narcotic induced constipation - Consultation placed for Dr. lEvin Andino for options of radiation therapy for management of pain, I have spoken to Dr. Andino, Dr. Perez is covering will contact her as well. Pathology was discussed in detail with patient and significant other Goal of hospitalization to control pain, transfer to [facility] for comfort, the stretcher is not helping with her pain Physician Attest: I have completed the full history and physical and agree with above dictation, dictated as a scribe.
[2020-10-02 14:13] LABS: ALT 21 U/L (4-34); AST 31 U/L (14-36); African American GFR (CKD) >90 (>60 ml/min/1.73 sqM); Albumin 4.2 g/dL (3.5-5.0); Albumin/Globulin Ratio 1.6; Alkaline Phosphatase 112 U/L (38-126); Anion Gap 9 mmol/L; Blood Urea Nitrogen 12 mg/dL (7-17); Calcium 10.8 mg/dL (8.4-10.2); Carbon Dioxide 26 mmol/L (22-30); Chloride 100 mmol/L (98-107); Globulin 2.7 g/dL; Glucose 132 mg/dL (74-99); LDH 745 U/L (313-618); Non-African American GFR(CKD) >90 (>60 ml/min/1.73 sqM); Potassium 4.1 mmol/L (3.5-5.1); Sodium 135 mmol/L (137-145); Total Bilirubin 0.3 mg/dL (0.2-1.3); Total Protein 6.9 g/dL (6.3-8.2)
[2020-10-02] MEDS ORDERED: LORazepam 2 MG/ML INJ IV STA (16:36)
[2020-10-02] MEDS: DEXAMETHASONE SOD PHOSPHATE 4 MG/ML 1 ML VIAL IV SCH ×2 (16:48→23:36)
[2020-10-02] MEDS: PANTOPRAZOLE 40 MG TABLET PO SCH (16:48)
[2020-10-02] MEDS: SENNOSIDES-DOCUSATE SODIUM 1 EACH TAB PO SCH (21:19)
[2020-10-02] MEDS: GABAPENTIN 100 MG CAP PO SCH (21:19)
[2020-10-03] MEDS ORDERED: IBUPROFEN 200 MG TAB PO PRN
[2020-10-03] MEDS: LORazepam 2 MG/ML INJ IV PRN ×3 (00:40→16:58)
[2020-10-03] MEDS: DEXTROSE 5%-0.45% NACL 1,000 ML IV SCH ×2 (00:40→13:50)
[2020-10-03] MEDS: HYDROmorphone 1 MG/ML 1 ML SYRINGE IVP PRN ×8 (02:41→23:58)
[2020-10-03] MEDS: PANTOPRAZOLE 40 MG TABLET PO SCH ×2 (06:34→16:58)
[2020-10-03] MEDS: LEVOTHYROXINE 75 MCG TAB PO SCH (06:34)
[2020-10-03] MEDS: ALPRAZolam 0.5 MG TAB PO PRN ×3 (06:54→20:01)
[2020-10-03] MEDS: SENNOSIDES-DOCUSATE SODIUM 1 EACH TAB PO SCH ×2 (08:45→20:01)
[2020-10-03] MEDS: HEPARIN SODIUM,PORCINE/PF 5,000 UNIT/0.5 ML SYRINGE SQ SCH ×2 (08:45→20:02)
[2020-10-03] MEDS: GABAPENTIN 100 MG CAP PO SCH ×2 (08:45→20:01)
[2020-10-03] MEDS: DEXAMETHASONE SOD PHOSPHATE 4 MG/ML 1 ML VIAL IV SCH ×3 (08:46→23:58)
[2020-10-03] MEDS: IBUPROFEN 200 MG TAB PO PRN ×2 (10:55→18:57)
[2020-10-03 11:32] VITALS: BMI 24.9
--- NOTE | 2020-10-03 11:55 | P.CONS ---
History of Present Illness - Reason for Consult Consult date: 10/03/20 - Chief Complaint Intractable pain in the right posterior ribs - History of Present Illness 50 years old female presented with a large destructive mass in the right lung, admitted to the hospital for intractable pain due to the malignant mass . The patient has been complaining of pain in about 2 months ago , CT of the chest and 08/18/2020 showed large destructive right lower lobe lung mass marie suring 8 x 8 cm there is extension outside the ribs cage into the underlying subcutaneous soft tissue with adjacent rib destruction, there is pathologic right hilar lymphadenopathy. In 09/24/2020 ultrasound guided biopsy of the mass showed moderate to poorly differentiated pulmonary adenocarcinoma. The patient is admitted to the hospital because of the posterior chest wall pain , she has a history for breast cancer in 2006. Status post bilateral mastectomy with reconstruction, status post radiotherapy to the right chest wall and 2006. Review of Systems Constitutional: Reports chronic pain, Reports fatigue Eyes: bilateral as per HPI Ears, nose, mouth and throat: Reports as per HPI Cardiovascular: Reports as per HPI Gastrointestinal: Reports as per HPI Genitourinary: Reports as per HPI Menstruation: Reports as per HPI Musculoskeletal: Reports as per HPI Musculoskeletal: right: as per HPI Integumentary: Reports as per HPI Neurological: Reports as per HPI Psychiatric: Reports as per HPI Endocrine: Reports as per HPI Hematologic/Lymphatic: Reports as per HPI Allergic/Immunologic: Reports as per HPI Past Medical History Past Medical History: Cancer, COPD, Thyroid Disorder Additional Past Medical History / Comment(s): R breast cancer (2018) with bilateral mastectomies with radiation, History of Any Multi-Drug Resistant Organisms: None Reported Past Surgical History: Breast Surgery, Cholecystectomy, Hysterectomy, Tubal Ligation Additional Past Surgical History / Comment(s): bilateral mastectomies with reconstruction, D&C, RIGHT partial lobectomy, Past Anesthesia/Blood Transfusion Reactions: No Reported Reaction, Motion Sickness Past Psychological History: Anxiety, Panic Disorder Smoking Status: Current every day smoker Past Alcohol Use History: None Reported Past Drug Use History: None Reported - Past Family History Father Family Medical History: Cancer Additional Family Medical History / Comment(s): Father is healthy and is 75yrs old. Mother Family Medical History: No Reported History Additional Family Medical History / Comment(s): Mother is healthy and is 75 yrs old. Medications and Allergies Home Medications Medication Instructions Recorded Confirmed Type ALPRAZolam [Xanax] 0.5 mg PO QID PRN 08/25/17 10/02/20 History Levothyroxine Sodium [Synthroid] 75 mcg PO DAILY 12/13/17 10/02/20 History HYDROcodone/APAP 10-325MG [[place] 1 tab PO Q6H PRN 10/02/20 10/02/20 History 10-325] Allergies Allergy/AdvReac Type Severity Reaction Status Date / Time No Known Allergies Allergy Verified 10/02/20 07:01 Physical Exam Vitals: Vital Signs Temp Pulse Pulse Resp BP BP Pulse Ox 10/03/20 08:00 86 18 10/03/20 07:22 97 10/03/20 07:00 99 F 86 18 124/92 90 L 10/03/20 05:47 98.9 F 10/03/20 02:00 99.6 F 80 18 125/80 96 10/03/20 00:40 99.2 F 10/02/20 21:50 99 F 89 18 114/73 94 L 10/02/20 20:00 99.2 F 89 18 123/73 97 10/02/20 17:30 85 18 128/56 98 10/02/20 14:45 95 18 126/88 Intake and Output 10/02/20 10/03/20 10/03/20 22:59 06:59 14:59 Intake Total 50 650 Balance 50 650 Intake: Intake, IV Titration 450 Amount Dextrose 5%-0.45% NaCl 1, 450 000 ml @ 75 mls/hr IV . [id number] [facility] Rx#:[id number] Oral 50 200 Other: # Voids 1 Weight 65.771 kg - Constitutional General appearance: mild distress - EENT Eyes: PERRLA ENT: normal oropharynx - Neck Neck: normal ROM - Respiratory Respiratory: right: diminished, rales - Cardiovascular Rhythm: regular - Gastrointestinal General gastrointestinal: normal bowel sounds - Integumentary Integumentary: normal - Neurologic Neurologic: CNII-XII intact - Musculoskeletal Musculoskeletal: generalized weakness - Psychiatric Psychiatric: A&O x's 3, appropriate affect Results CBC & Chem 7: 10/01/20 23:57 10/02/20 13:17 Labs: Abnormal Lab Results - Last 24 Hours (Table) 10/02/20 Range/Units 13:17 Sodium 135 L (137-145) mmol/L Creatinine 0.44 L (0.52-1.04) mg/dL Glucose 132 H (74-99) mg/dL Calcium 10.8 H (8.4-10.2) mg/dL Lactate Dehydrogenase 745 H (313-618) U/L Assessment and Plan Assessment: Poorly differentiated adenocarcinoma of the right lung, presented with advanced destructive mass to the posterior right lower ribs causing intractable pain. (1) Intractable pain Current Visit: Yes Status: Acute Code(s): R52 - PAIN, UNSPECIFIED SNOMED Code(s): 18506650 (2) Mass of right lung Current Visit: No Status: Acute Code(s): R91.8 - OTHER NONSPECIFIC ABNORMAL FINDING OF LUNG FIELD SNOMED Code(s): 646589215 (3) Cancer of right lung Current Visit: Yes Status: Acute Code(s): C34.91 - MALIGNANT NEOPLASM OF UNSP PART OF RIGHT BRONCHUS OR LUNG SNOMED Code(s): 648179596 Plan: Images reviewed and discussed with the patient, she is a candidate for a palliative external radiotherapy. Discussed the case with Dr. Nicole. I talked to the patient about palliative external beam radio therapy , the intent is for pain relief, we discussed the rationale , the techniques , and the potential acute and late side effects of the treatment. The patient expressed understanding of these recommendations, she is agreeable to move forward with radiotherapy. Our plan is to do a simulation and start the treatment today.
--- NOTE | 2020-10-03 20:14 | P.PN ---
Subjective Progress Note Date: 10/03/20 Principal diagnosis: Right protruding, destructive lung mass She is feeling a lot better today, she is passing gas, has not had a bowel movement yet. Cousin at bedside. We discussed planning foe premedication and staging. Will set up for CTs, Bone Scan, and MRI. NGS and molecular testing has been requested on her pathology through our office. Will add PO immediate release pain medication, advised to utilize prior to IV to scale dosage prior to discharge. Will keep IV on through completion of staging tests then discontinue. Add Miralax in addition to scheduled senna-s. Dr. Perez has seen patient today and radiation has been started to palliatively shrink large destructive mass. Objective - Vital Signs Vital signs: Vital Signs Temp 98.9 F 10/03/20 05:47 Pulse 80 10/03/20 02:00 Resp 18 10/03/20 02:00 BP 125/80 10/03/20 02:00 Pulse Ox 97 10/03/20 07:22 Intake & Output 10/02/20 10/03/20 10/03/20 18:59 06:59 18:59 Intake Total 700 Balance 700 Intake: Intake, IV Titration 450 Amount Dextrose 5%-0.45% NaCl 1, 450 000 ml @ 75 mls/hr IV . [id number] [facility] Rx#:[id number] Oral 250 Other: # Voids 1 - Exam - EENT Eyes: EOMI, PERRLA ENT: NA/AT, normal oropharynx - Respiratory Respiratory: bilateral: diminished - Cardiovascular Rhythm: regular - Gastrointestinal General gastrointestinal: distended, soft - Integumentary Integumentary: pale - Neurologic Neurologic: CNII-XII intact - Musculoskeletal Musculoskeletal: gait normal - Psychiatric Psychiatric: A&O x's 3, appropriate affect, intact judgment & insight Right mid thoracic protruding mass - Labs CBC & Chem 7: 10/01/20 23:57 10/02/20 13:17 Labs: Abnormal Lab Results - Last 24 Hours (Table) 10/02/20 Range/Units 13:17 Sodium 135 L (137-145) mmol/L Creatinine 0.44 L (0.52-1.04) mg/dL Glucose 132 H (74-99) mg/dL Calcium 10.8 H (8.4-10.2) mg/dL Lactate Dehydrogenase 745 H (313-618) U/L Assessment and Plan (1) Intractable pain Current Visit: Yes Status: Acute Code(s): R52 - PAIN, UNSPECIFIED SNOMED Code(s): 27748963 (2) Mass of right lung Current Visit: No Status: Acute Code(s): R91.8 - OTHER NONSPECIFIC ABNORMAL FINDING OF LUNG FIELD SNOMED Code(s): 802447258 (3) Right-sided thoracic back pain Current Visit: No Status: Acute Code(s): M54.6 - PAIN IN THORACIC SPINE SNOMED Code(s): 084016944 Plan: Assessment and Recommendations: Right Destructive Lung Mass - Positive Adenocarcinoma proven pathology, consistent with lung primary - Staging scans will be ordered after we can control pain so she can tolerate positioning for tests - Bone scan and MRI Brain - PET scan as outpatient - NGS and PDL1 molecular testing will be ordered through office on pathology Intractable Pain due to Malignancy - Fentanyl Patch - Dilaudid IV pRN - Discontinue after staging scans completed - Add Oxycodone (was taking norco at home without relief) as breakthrough and advised to use prior to IV. - Nursing to ensure narcotic medications are filled prior to discharge through hospital pharmacy - Add Gabapentin - Add Dexamethasone 4mg IV q8 for anti-inflammatory effects, PPI ordered - Bowel regimen for narcotic induced constipation She is feeling a lot better today, she is passing gas, has not had a bowel movement yet. Cousin at bedside. We discussed planning foe premedication and staging. Will set up for CTs, Bone Scan, and MRI. NGS and molecular testing has been requested on her pathology through our office. Will add PO immediate release pain medication, advised to utilize prior to IV to scale dosage prior to discharge. Will keep IV on through completion of staging tests then discontinue. Add Miralax in addition to scheduled senna-s. Dr. Perez has seen patient today and radiation has been started to palliatively shrink large destructive mass Greater than 35 minutes with patient and supportive cousin discussing plan of care for pain, constipation, staging. Will reschedule patient first patient consult in office with Dr. Oneill for first available. Physician Attest: I have completed the full history and physical and agree with above dictation, dictated as a scribe.
--- NOTE | 2020-10-03 21:51 | P.PN ---
Subjective Progress Note Date: 10/03/20 Principal diagnosis: Chest wall pain Patient is admitted for large chest wall mass and relative pain. Seems more comfortable today. No nausea. Radiation is being used. No constipation. Objective - Vital Signs Vital signs: Vital Signs Temp 99.1 F 10/03/20 15:00 Pulse 88 10/03/20 15:00 Resp 18 10/03/20 15:00 BP 125/82 10/03/20 15:00 Pulse Ox 90 L 10/03/20 15:00 Intake & Output 10/03/20 10/03/20 10/04/20 06:59 18:59 06:59 Intake Total 700 1000 Balance 700 1000 Weight 65.771 kg Intake: Intake, IV Titration 450 Amount Dextrose 5%-0.45% NaCl 1, 450 000 ml @ 75 mls/hr IV . [id number] [facility] Rx#:[id number] Oral 250 1000 Other: # Voids 1 2 1 - Constitutional General appearance: Present: average body habitus - EENT Eyes: Absent: abnormal pupil - Neck Neck: Absent: lymphadenopathy - Respiratory Respiratory: right: diminished, left: CTA - Cardiovascular Rhythm: regular Heart sounds: normal: S1, S2 Abnormal Heart Sounds: Absent: S3 Gallop - Gastrointestinal General gastrointestinal: Present: soft. Absent: tenderness - Integumentary Integumentary: Absent: cellulitis - Psychiatric Psychiatric: Present: A&O x's 3, appropriate affect - Labs CBC & Chem 7: 10/01/20 23:57 10/02/20 13:17 Assessment and Plan (1) Intractable pain Current Visit: Yes Status: Acute Code(s): R52 - PAIN, UNSPECIFIED SNOMED Code(s): 61499678 (2) History of breast cancer in female Current Visit: No Status: Acute Code(s): Z85.3 - PERSONAL HISTORY OF MALIGNANT NEOPLASM OF BREAST SNOMED Code(s): 417489303 (3) Mass of right lung Current Visit: No Status: Acute Code(s): R91.8 - OTHER NONSPECIFIC ABNORMAL FINDING OF LUNG FIELD SNOMED Code(s): 992468483 Plan: The patient has intractable chest wall pain related to lung mass. Prior history of breast cancer. Pain control as necessary. Appreciate oncology input Prognosis is guarded. Dr. Alegre group is covering for weekend
[2020-10-04] MEDS: LORazepam 2 MG/ML INJ IV PRN (00:51)
[2020-10-04] MEDS: HYDROmorphone 1 MG/ML 1 ML SYRINGE IVP PRN ×6 (02:45→23:33)
[2020-10-04] MEDS: DEXTROSE 5%-0.45% NACL 1,000 ML IV SCH ×2 (05:18→20:08)
[2020-10-04] MEDS: LEVOTHYROXINE 75 MCG TAB PO SCH (06:31)
[2020-10-04] MEDS: PANTOPRAZOLE 40 MG TABLET PO SCH ×2 (06:31→16:44)
[2020-10-04] MEDS: HEPARIN SODIUM,PORCINE/PF 5,000 UNIT/0.5 ML SYRINGE SQ SCH ×2 (09:03→19:59)
[2020-10-04] MEDS: DEXAMETHASONE SOD PHOSPHATE 4 MG/ML 1 ML VIAL IV SCH ×3 (09:03→23:33)
[2020-10-04] MEDS: GABAPENTIN 100 MG CAP PO SCH ×2 (09:03→19:59)
[2020-10-04] MEDS: polyethylene glycoL 3350 17 GM POWD.PACK PO SCH (09:03)
[2020-10-04] MEDS: SENNOSIDES-DOCUSATE SODIUM 1 EACH TAB PO SCH ×2 (09:03→19:59)
[2020-10-04 10:52] LABS: Basophils % (A) 0 %; Eosinophils % (A) 0 %; HCT 39.5 % (34.0-46.0); HGB 13.4 gm/dL (11.4-16.0); Lymphocytes # (A) 1.4 k/uL (1.0-4.8); Lymphocytes % (A) 9 %; MCH 33.3 pg (25.0-35.0); MCHC 33.8 g/dL (31.0-37.0); MCV 98.4 fL (80.0-100.0); Mean Platelet Volume 7.2; Monocytes # (A) 0.9 k/uL (0-1.0); Monocytes % (A) 6 %; Neutrophils # (A) 12.6 k/uL (1.3-7.7); Neutrophils % (A) 84 %; Platelet Count 476 k/uL (150-450); RBC 4.01 m/uL (3.80-5.40); RDW 12.9 % (11.5-15.5)
[2020-10-04] MEDS: ALPRAZolam 0.5 MG TAB PO PRN (11:02)
[2020-10-04 11:09] LABS: ALT 49 U/L (4-34); AST 39 U/L (14-36); African American GFR (CKD) >90 (>60 ml/min/1.73 sqM); Albumin 3.9 g/dL (3.5-5.0); Alkaline Phosphatase 102 U/L (38-126); Anion Gap 10 mmol/L; Blood Urea Nitrogen 16 mg/dL (7-17); Calcium 10.8 mg/dL (8.4-10.2); Carbon Dioxide 26 mmol/L (22-30); Chloride 101 mmol/L (98-107); Glucose 158 mg/dL (74-99); Magnesium 1.6 mg/dL (1.6-2.3); Non-African American GFR(CKD) >90 (>60 ml/min/1.73 sqM); Phosphorus 3.5 mg/dL (2.5-4.5); Potassium 3.9 mmol/L (3.5-5.1); Sodium 137 mmol/L (137-145); Total Bilirubin 0.2 mg/dL (0.2-1.3); Total Protein 6.5 g/dL (6.3-8.2)
[2020-10-04] MEDS: IOPAMIDOL CONTRAST (ORAL USE) VIAL PO PRN ×2 (12:04→13:13)
[2020-10-04] MEDS: MORPHINE SULFATE ER 15 MG TABLET PO SCH ×2 (12:18→21:43)
[2020-10-04] MEDS ORDERED: bisacodyL 10 MG SUPP RECTAL PRN (20:31)
--- NOTE | 2020-10-04 22:01 | MR ---
EXAMINATION TYPE: MR brain wo/w con DATE OF EXAM: 10/04/2020 COMPARISON: None HISTORY: Initial staging, just diagnosed lung caner. TECHNIQUE: Multiplanar, multisequence images of the brain and brainstem is performed without and with IV contras t, utilizing 7 mL intravenous Gadavist . FINDINGS: Diffusion weighted images demonstrate no evidence of a recent infarct or other diffusion ab normality. There is no extra-axial fluid collection or significant white matter signal abnormality. The ventricular system and cisternal spaces are normal in size and appearance. The brain volume is age appropriate. There is minimal to mild burden of periventricular and subcortical T2/FLAIR signal a bnormality likely on the basis of chronic ischemic microangiopathic change. Midline structures demonstrate normal morphology. The craniocervical junction appears within normal limits. Post contrast images demonstrate no abnormal enhancement. The dural venous sinuses appear pa tent. The visualized sinuses are clear and the globes are intact. IMPRESSION: No pathological intracranial enhancement.
--- NOTE | 2020-10-04 22:32 | CT ---
EXAMINATION TYPE: CT ChestAbdPelvis w con DATE OF EXAM: 10/04/2020 COMPARISON: CT chest 09/12/2020 HISTORY: Rt sided chest mass, history of breast CA CT DLP: 668.5 mGycm Automated exposure control for dose reduction was used. CONTRAST: CT scan of the chest, abdomen and pelvis is performed with Oral Contrast and with IV Contrast, patien t injected with 100 mL of Isovue 300. FINDINGS: LUNGS: There is a large segment right lower lobe mass 10 x 9 x 9 cm (AP x TR x CC) eroded through the posterior and extended into the inferior chest wall. There is new nodular thickening at the posterio r right base. Emphysematous changes. Biapical pleural thickening. Some scattered groundglass opacitie s are seen in the left lung and right middle lobe. Scattered scarring in the bilateral lungs. There i s no pleural effusion or pneumothorax seen. The tracheobronchial tree is patent. MEDIASTINUM: Several enlarged right hilar lymph nodes measuring up to 2.5 cm lymph nodes cause mild c ompression of the right upper lobe pulmonary artery. OTHER: There is a moderate hiatal hernia. Bilateral mastectomy. Hypodense focus in the T11 vertebral body on the right is indeterminate. LIVER/GB: 1.7 cm hypodense lesion of the right lobe of the liver not significantly changed from 2017. Subcentimeter hypodensity at the dome posteriorly similar to prior to small to characterize. Cholecy stectomy. Portal veins are patent. PANCREAS: No significant abnormality is seen. SPLEEN: No significant abnormality is seen. ADRENALS: 8mm nodule of the left adrenal gland measures approximately 50 Hounsfield units. The right adrenal gland is unremarkable. KIDNEYS: No significant abnormality is seen. BOWEL: No significant abnormality is seen. REPRODUCTIVE ORGANS: Uterus is surgically 0absent. No adnexal mass. LYMPH NODES: No greater than 1 cm abdominal or pelvic lymph nodes are appreciated. OSSEOUS STRUCTURES: Likely hemangiomas of the L1 and L5 vertebral bodies.. OTHER: Fat-containing umbilical hernia. A few foci of gas in the anterior abdominal wall are favored to represent injection sites. IMPRESSION: 1. There is a large superior segment right lower lobe mass measuring 10 x 9 x 9 cm (AP x TR x CC) wi th destruction of the adjacent posterior ninth rib and extension into the posterior chest chest wall. There is new nodular thickening at the posterior right base. There is hilar lymphadenopathy similar to prior with compression of the upper lobe pulmonary artery. No adenopathy in the abdomen or pelvis . 2. Groundglass opacities in the left greater than right are favored to be on the basis of infectious /inflammatory etiology. 3. Indeterminate 8 mm left adrenal nodule. Recommend adrenal washout protocol for further characteri zation. 4. Hypodense lesions in the liver similar to prior. These can be further assessed with liver protoco l MRI. 5. A few hypodense lesions in the T11, L1 and L5 vertebral bodies are indeterminate but appear benig n. Correlate with bone scan.
[2020-10-05] MEDS: HYDROmorphone 1 MG/ML 1 ML SYRINGE IVP PRN ×5 (02:49→20:41)
[2020-10-05] MEDS: DEXTROSE 5%-0.45% NACL 1,000 ML IV SCH ×2 (05:28→16:14)
[2020-10-05] MEDS: LEVOTHYROXINE 75 MCG TAB PO SCH (06:31)
[2020-10-05] MEDS: PANTOPRAZOLE 40 MG TABLET PO SCH ×2 (06:31→16:12)
[2020-10-05] MEDS: MORPHINE SULFATE ER 15 MG TABLET PO SCH ×2 (07:59→21:31)
[2020-10-05] MEDS: polyethylene glycoL 3350 17 GM POWD.PACK PO SCH ×2 (07:59→08:00)
[2020-10-05] MEDS: GABAPENTIN 100 MG CAP PO SCH ×2 (08:00→21:31)
[2020-10-05] MEDS: ALPRAZolam 0.5 MG TAB PO PRN ×3 (08:00→23:35)
[2020-10-05] MEDS: HEPARIN SODIUM,PORCINE/PF 5,000 UNIT/0.5 ML SYRINGE SQ SCH ×2 (08:00→21:31)
[2020-10-05] MEDS: SENNOSIDES-DOCUSATE SODIUM 1 EACH TAB PO SCH ×2 (08:00→21:32)
[2020-10-05] MEDS: DEXAMETHASONE SOD PHOSPHATE 4 MG/ML 1 ML VIAL IV SCH (08:00)
[2020-10-05 08:01] LABS: Basophils % (A) 0 %; Eosinophils # (A) 0.1 k/uL (0-0.7); Eosinophils % (A) 0 %; HCT 39.8 % (34.0-46.0); HGB 13.2 gm/dL (11.4-16.0); Lymphocytes # (A) 1.2 k/uL (1.0-4.8); Lymphocytes % (A) 10 %; MCH 32.9 pg (25.0-35.0); MCHC 33.1 g/dL (31.0-37.0); MCV 99.3 fL (80.0-100.0); Mean Platelet Volume 7.6; Monocytes # (A) 0.8 k/uL (0-1.0); Monocytes % (A) 6 %; Neutrophils # (A) 10.7 k/uL (1.3-7.7); Neutrophils % (A) 82 %; Platelet Count 457 k/uL (150-450); RDW 12.6 % (11.5-15.5); WBC 13.1 k/uL (3.8-10.6)
[2020-10-05 08:22] LABS: African American GFR (CKD) >90 (>60 ml/min/1.73 sqM); Anion Gap 8 mmol/L; Blood Urea Nitrogen 12 mg/dL (7-17); Calcium 10.9 mg/dL (8.4-10.2); Carbon Dioxide 27 mmol/L (22-30); Chloride 100 mmol/L (98-107); Glucose 133 mg/dL (74-99); Non-African American GFR(CKD) >90 (>60 ml/min/1.73 sqM); Potassium 4.2 mmol/L (3.5-5.1); Sodium 135 mmol/L (137-145)
--- NOTE | 2020-10-05 13:18 | P.PN ---
Subjective Progress Note Date: 10/05/20 Patient is definitely more comfortable today. She was able to lay flat on her back. She did have an exacerbation yesterday which appears to be related to being transferred for the MRI of the brain. However she states that after getting back to bed pain control has been fairly satisfactory. No fever/c hills/nausea/vomiting. Objective - Vital Signs Vital signs: Vital Signs Temp 98 F 10/05/20 07:55 Pulse 77 10/05/20 07:55 Resp 18 10/05/20 07:55 BP 131/82 10/05/20 07:55 Pulse Ox 95 10/05/20 08:59 Intake & Output 10/04/20 10/05/20 10/05/20 18:59 06:59 18:59 Intake Total 765 Balance 765 Intake: Intake, IV Titration 525 Amount Dextrose 5%-0.45% NaCl 1, 525 000 ml @ 75 mls/hr IV . [id number] [facility] Rx#:[id number] Oral 240 Other: # Voids 3 1 - Constitutional General appearance: Present: no acute distress - EENT Eyes: Present: EOMI ENT: Present: hearing grossly normal, normal oropharynx - Respiratory Respiratory: bilateral: CTA - Cardiovascular Rhythm: regular Heart sounds: normal: S1, S2 - Gastrointestinal General gastrointestinal: Present: soft - Integumentary Integumentary: Present: normal - Neurologic Neurologic: Present: CNII-XII intact - Musculoskeletal Musculoskeletal Comment(s): Mass related to right medial scapular area, with improved tenderness to palpat ion Musculoskeletal: Present: generalized weakness, strength equal bilaterally - Psychiatric Psychiatric: Present: A&O x's 3 - Labs CBC & Chem 7: 10/05/20 07:24 10/05/20 07:24 Labs: Abnormal Lab Results - Last 24 Hours (Table) 10/04/20 10/05/20 10/05/20 Range/Units 09:56 07:24 07:24 WBC 13.1 H (3.8-10.6) k/uL Plt Count 457 H (150-450) k/uL Neutrophils # 10.7 H (1.3-7.7) k/uL Sodium 135 L (137-145) mmol/L Creatinine 0.50 L (0.52-1.04) mg/dL Glucose 133 H (74-99) mg/dL Calcium 10.9 H (8.4-10.2) mg/dL Vitamin D 25-Hydroxy 18.2 L (30.0-100.0) ng/mL Assessment and Plan (1) Intractable pain Narrative/Plan: Patient's pain is definitely improved with opioids, steroids and gabapentin. She has also started radiation. - The pain management was discussed with the admitting service in detail. Fentanyl has been discontinued and the patient is currently on MS Contin. Dose will be adjusted as needed. I'll switch her steroids to by mouth. Continue gabapentin. The patient does have pain exacerbations with transfer for testing. She will also resume radiation tomorrow. Therefore after completion of her scans, plan to switch her short acting from IV to by mouth. Options include liquid morphine and oxycodone. If her pain appears to be well-controlled, [place] is also an option. Current Visit: Yes Status: Acute Code(s): R52 - PAIN, UNSPECIFIED SNOMED Code(s): 88996552 (2) Cancer of right lung Narrative/Plan: The patient is currently undergoing staging studies simultaneously with pain control measures. CT of the chest abdomen pelvis appeared to show mediastinal involvement but no evidence of distant disease. A couple of lesions are seen in the liver that appear to be stable from 2017 and I'll therefore more likely benign. MRI of the brain was negative. Results were discussed with the patient and her family. She will have bone scan tomorrow. - They were advised that assuming that the bone scan is negative, we will likely proceed with PET scan as an outpatient. She will continue palliative radiation in the meantime. If PET scan shows no evidence of distant metastasis, then radiation will be continued for a full course with curative intent with concurrent chemotherapy added. The patient is found to have distant metastatic disease then she will have a limited amount of radiation, usually 2 or 3 weeks, for palliative purposes alone Current Visit: Yes Status: Acute Code(s): C34.91 - MALIGNANT NEOPLASM OF UNSP PART OF RIGHT BRONCHUS OR LUNG SNOMED Code(s): 745072371
[2020-10-05] MEDS: dexAMETHasone 4 MG TAB PO SCH ×2 (16:12→21:32)
[2020-10-05] MEDS ORDERED: guaiFENesin 600 MG TABLET.ER PO PRN (21:26)
--- NOTE | 2020-10-05 23:37 | P.PN ---
Subjective Progress Note Date: 10/04/20 Principal diagnosis: Intractable chest wall pain Ms. 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 On 10/04/2020 -patient is seen and examined at the bedside. She mentions that her pain is poorly controlled on the current medication regimen, she is on fentanyl patch, Dilaudid 1 mg every 3 hours and Neurontin. Patient is also on dexamethasone 4 mg 3 times daily. Patient states that her pain is still 8 out of 10 and is difficult for her when she tries to change position in the bed. She denies having any chest pain or palpitations. No cough or abdominal pain. No dysuria or hematuria. On reviewing her vitals temperature of 98.9, heart rate 81, respiratory rate 17, blood pressure 133/89 saturating at 94% on 2 L of nasal cannula. Patient's labs are reviewed white count of 15, hemoglobin 13.4, platelets 476. Sodium 137, potassium 3.9, chloride 101, bicarb 26, BUN 16, creatinine 0.51. Patient's medications have been reviewed. Objective - Vital Signs Vital signs: Vital Signs Temp 98 F 10/04/20 11:14 Pulse 83 10/04/20 11:14 Resp 16 10/04/20 11:14 BP 138/87 10/04/20 11:14 Pulse Ox 95 10/04/20 11:14 Intake & Output 10/03/20 10/04/20 10/04/20 18:59 06:59 18:59 Intake Total 1000 Balance 1000 Weight 65.771 kg Intake: Oral 1000 Other: # Voids 2 1 - Exam PHYSICAL EXAMINATION: GENERAL: Appears to be in pain and discomfort HEENT: Pupils are round and equally reacting to light. EOMI. No scleral icterus. No conjunctival pallor. CARDIOVASCULAR: S1 and S2 present. No murmurs, rubs, or gallops. PULMONARY: Bilateral breath sounds diminished due to poor effort ABDOMEN: Soft,non -tender, normal bowel sounds. No guarding or rigidity. MUSCULOSKELETAL: No joint swelling or deformity. EXTREMITIES: No edema NEUROLOGICAL: Gross neurological examination did not reveal any focal deficits. SKIN:No rash - Labs CBC & Chem 7: 10/05/20 07:24 10/05/20 07:24 Labs: Abnormal Lab Results - Last 24 Hours (Table) 10/04/20 10/04/20 Range/Units 09:56 09:56 WBC 15.0 H (3.8-10.6) k/uL Plt Count 476 H (150-450) k/uL Neutrophils # 12.6 H (1.3-7.7) k/uL Creatinine 0.51 L (0.52-1.04) mg/dL Glucose 158 H (74-99) mg/dL Calcium 10.8 H (8.4-10.2) mg/dL AST 39 H (14-36) U/L ALT 49 H (4-34) U/L Assessment and Plan Assessment: ASSESSMENT Intractable chest wall pain secondary to malignancy Adenocarcinoma of the lung with metastasis to the bone and chest wall History of breast cancer status postmastectomy Leukocytosis secondary to steroids PLAN: Patient's pain does not seem to be under good control on the current medication regimen. She was started on extended release morphine 15 mg twice daily and her fentanyl has been discontinued. The rest of her current pain medication regimen remains the same. Patient is continued on dexamethasone as well. Patient has been constipated, will give a trial of MiraLAX and senna. Continue with the rest of her current medication regimen. Further recommendations to follow depending on the progress of the patient
--- NOTE | 2020-10-05 23:40 | P.PN ---
Subjective Progress Note Date: 10/05/20 Principal diagnosis: Intractable chest wall pain Ms. 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 On 10/04/2020 -patient is seen and examined at the bedside. She mentions that her pain is poorly controlled on the current medication regimen, she is on fentanyl patch, Dilaudid 1 mg every 3 hours and Neurontin. Patient is also on dexamethasone 4 mg 3 times daily. Patient states that her pain is still 8 out of 10 and is difficult for her when she tries to change position in the bed. She denies having any chest pain or palpitations. No cough or abdominal pain. No dysuria or hematuria. On reviewing her vitals temperature of 98.9, heart rate 81, respiratory rate 17, blood pressure 133/89 saturating at 94% on 2 L of nasal cannula. Patient's labs are reviewed white count of 15, hemoglobin 13.4, platelets 476. Sodium 137, potassium 3.9, chloride 101, bicarb 26, BUN 16, creatinine 0.51. On 10/05/2020 -patient is seen and examined at the bedside. She states that she did not have a bowel movement but has been passing gas since evening. She denies having any nausea or vomiting. Patient states her pain is under better control stating it is currently 6 out of 10. Patient denies any chest pain or palpitations. Difficulty in breathing at baseline. On reviewing the patient's vitals temperature of 98.9, heart rate 81, respiratory 17, blood pressure 130/89, saturating at 94% on 2 L of oxygen. On reviewing the labs white count of 13.1, hemoglobin 13.2, platelets 457. Sodium 135, potassium 4.2, chloride 1 00, bicarb 27, BUN 12, creatinine 0.50. Patient's medications have been reviewed. Objective - Vital Signs Vital signs: Vital Signs Temp 98.6 F 10/05/20 20:12 Pulse 76 10/05/20 20:12 Resp 16 10/05/20 20:12 BP 132/82 10/05/20 20:12 Pulse Ox 93 L 10/05/20 20:12 Intake & Output 0810/05/20 10/06/20 06:59 18:59 06:59 Intake Total 900 Balance 900 Intake: Intake, IV Titration 900 Amount Dextrose 5%-0.45% NaCl 1, 900 000 ml @ 75 mls/hr IV . [id number] [facility] Rx#:[id number] Other: # Voids 1 - Exam PHYSICAL EXAMINATION: GENERAL: Appears to be in pain and discomfort HEENT: Pupils are round and equally reacting to light. EOMI. No scleral icterus. No conjunctival pallor. CARDIOVASCULAR: S1 and S2 present. No murmurs, rubs, or gallops. PULMONARY: Bilateral breath sounds diminished due to poor effort ABDOMEN: Soft,non -tender, hyperactive bowel sounds. No guarding or rigidity. MUSCULOSKELETAL: No joint swelling or deformity. EXTREMITIES: No edema NEUROLOGICAL: Gross neurological examination did not reveal any focal deficits. SKIN:No rash - Labs CBC & Chem 7: 10/05/20 07:24 10/05/20 07:24 Labs: Abnormal Lab Results - Last 24 Hours (Table) 10/04/20 10/05/20 10/05/20 Range/Units 09:56 07:24 07:24 WBC 13.1 H (3.8-10.6) k/uL Plt Count 457 H (150-450) k/uL Neutrophils # 10.7 H (1.3-7.7) k/uL Sodium 135 L (137-145) mmol/L Creatinine 0.50 L (0.52-1.04) mg/dL Glucose 133 H (74-99) mg/dL Calcium 10.9 H (8.4-10.2) mg/dL Vitamin D 25-Hydroxy 18.2 L (30.0-100.0) ng/mL Assessment and Plan Assessment: ASSESSMENT Intractable chest wall pain secondary to malignancy Adenocarcinoma of the lung with metastasis to the bone and chest wall History of breast cancer status postmastectomy Leukocytosis secondary to steroids PLAN:She was started on extended release morphine 15 mg twice daily and her fen tanyl has been discontinued and her pain is under better control. The rest of her current pain medication regimen remains the same. Patient is continued on dexamethasone as well. Patient is still constipated on MiraLAX and senna, will give a trail of suppository . Continue with the rest of her current medication regimen. Further recommendations to follow depending on the progress of the patient
[2020-10-06] MEDS: HYDROmorphone 1 MG/ML 1 ML SYRINGE IVP PRN ×7 (00:50→21:39)
[2020-10-06] MEDS: DEXTROSE 5%-0.45% NACL 1,000 ML IV SCH ×2 (00:55→14:44)
[2020-10-06] MEDS: LEVOTHYROXINE 75 MCG TAB PO SCH (06:08)
[2020-10-06] MEDS: GABAPENTIN 100 MG CAP PO SCH ×2 (07:24→20:54)
[2020-10-06] MEDS: PANTOPRAZOLE 40 MG TABLET PO SCH ×2 (07:24→17:05)
[2020-10-06] MEDS: MORPHINE SULFATE ER 15 MG TABLET PO SCH ×2 (07:25→20:54)
[2020-10-06] MEDS: dexAMETHasone 4 MG TAB PO SCH ×3 (07:25→20:55)
[2020-10-06] MEDS: SENNOSIDES-DOCUSATE SODIUM 1 EACH TAB PO SCH ×2 (07:26→20:55)
[2020-10-06] MEDS: polyethylene glycoL 3350 17 GM POWD.PACK PO SCH (07:27)
[2020-10-06] MEDS: HEPARIN SODIUM,PORCINE/PF 5,000 UNIT/0.5 ML SYRINGE SQ SCH ×2 (07:27→20:54)
[2020-10-06] MEDS ORDERED: HYDROmorphone 1 MG/ML 1 ML SYRINGE IVP PRN (11:33)
--- NOTE | 2020-10-06 14:17 | NM ---
EXAMINATION TYPE: NM bone scan whole body DATE OF EXAM: 10/06/2020 COMPARISON: 10/04/2020 HISTORY: Breast cancer Delayed whole-body scanning was performed following the injection of 22.8 mCi Tc 99m MDP. Images acq uired 4.5 hours post injection. FINDINGS: There is absence of the posterior rib on the right with increased uptake involving 2 adjacent ribs po steriorly. This corresponds to destructive area noted by recent CT scan. Suspected metastasis also in volves the adjacent rib cage with increased uptake. There is intense abnormal uptake throughout the thoracic vertebral column with no corresponding CT silvia ne abnormality. Degenerative disc disease in the differential diagnosis. Abnormal uptake involving the shoulders and sternoclavicular joints most typical of post arthritic ch anges IMPRESSION: 1. Absence of the right posterior rib corresponds to the destructive mass seen by CT scan. The certified home health aide ior margin of the rib immediately above and below this region also demonstrates increased uptake sugg estive of metastases. 2. Nonspecific uptake throughout the thoracic spine. Areas noted by recent CT scan involving T11, L1 and L5 to small to characterize by bone scan.
--- NOTE | 2020-10-06 15:10 | P.PN ---
Subjective Progress Note Date: 10/06/20 Principal diagnosis: Intractable posterior chest wall pain In follow-up today patient's pain is pretty well controlled on current analgesic regimen, the more she moves around it does become more intense, she is tolerating radiation well. She is pending a bone scan today after her radiation treatment. Appetite is fair, no nausea, chest pain, difficulty breathing, she does have a splint herself when she coughs, no abdominal pain, she's taking multiple medications for prevention of narcotic-induced constipation. No swelling Objective - Vital Signs Vital signs: Vital Signs Temp 98.1 F 10/06/20 04:15 Pulse 76 10/06/20 04:15 Resp 20 10/06/20 04:15 BP 129/86 10/06/20 04:15 Pulse Ox 94 L 10/06/20 04:15 Intake & Output 10/05/20 10/06/20 10/06/20 18:59 06:59 18:59 Intake Total 900 900 Balance 900 900 Weight 65.771 kg Intake: Intake, IV Titration 900 900 Amount Dextrose 5%-0.45% NaCl 1, 900 900 000 ml @ 75 mls/hr IV . [id number] [facility] Rx#:[id number] - Constitutional General appearance: Present: average body habitus, cooperative, no acute distress - EENT Eyes: Present: anicteric sclerae, EOMI ENT: Present: hearing grossly normal - Respiratory Details: Patient has difficulty taking deep breaths secondary to right posterior chest discomfort - Cardiovascular Heart sounds: normal: S1, S2 Abnormal Heart Sounds: Absent: systolic murmur, diastolic murmur, rub, S3 Gallop, S4 Gallop, click, other - Gastrointestinal General gastrointestinal: Present: normal bowel sounds, soft - Integumentary Integumentary: Present: normal turgor - Neurologic Neurologic: Present: CNII-XII intact - Musculoskeletal Musculoskeletal: Present: strength equal bilaterally - Psychiatric Psychiatric: Present: A&O x's 3, appropriate affect, intact judgment & insight - Labs CBC & Chem 7: 10/05/20 07:24 10/05/20 07:24 - Imaging and Cardiology CT scan - abdomen: report reviewed CT scan - chest: report reviewed CT scan - pelvis: report reviewed MRI - head: report reviewed Assessment and Plan (1) Right-sided thoracic back pain Narrative/Plan: Patient is on long-acting MS Contin, IV Dilaudid, Neurontin. Reviewed case with Pharmacist. Oral Roxanol going to be initiated to assess for effectiveness. Dose will be adjusted to achieve adequate pain relief. Multiple medications are ordered for prevention of narcotic-induced constip ation. These will be listed on discharge paperwork so that she continues to take these on discharge. Radiation has started. Hopefully patient will get some relief of pain. Current Visit: Yes Status: Acute Priority: High Code(s): M54.6 - PAIN IN THORACIC SPINE SNOMED Code(s): 284552636 (2) Cancer of right lung Narrative/Plan: Recently diagnosed with poorly differentiated adenocarcinoma. From review of the pathology report from 09/24/20 specimen should be being sent for NGS and PDL 1 testing. MRI of the brain was negative. Pending bone scan. CT of the chest abdomen and pelvis showing no significant findings to suggest metastatic disease outside of the very large lung mass. Staging PET scan planned for outpatient. Current Visit: Yes Status: Acute Priority: High Code(s): C34.91 - MALIGNANT NEOPLASM OF UNSP PART OF RIGHT BRONCHUS OR LUNG SNOMED Code(s): 524693375 (3) History of breast cancer in female Current Visit: No Status: Chronic Priority: Low Code(s): Z85.3 - PERSONAL HISTORY OF MALIGNANT NEOPLASM OF BREAST SNOMED Code(s): 604212543 Plan: All of the above was reviewed with the patient. She verbalized understanding the plan. Will work with Deputy Coroner Investigator so pt has all meds prescribed in order prior to discharge.
[2020-10-06] MEDS: MORPHINE CONC SOLN 10mg/0.5mL ORAL SYRG PO PRN (20:01)
--- NOTE | 2020-10-06 22:57 | P.PN ---
Subjective Principal diagnosis: Chest mass. Patient is admitted for large chest wall mass and relative pain. Seems more comfortable today. No nausea. Radiation is being used. No constipation. Pain control is doing much better she is being transitioned to oral medication Objective - Vital Signs Vital signs: Vital Signs Temp 98.4 F 10/06/20 19:30 Pulse 81 10/06/20 19:30 Resp 16 10/06/20 20:30 BP 120/82 10/06/20 19:30 Pulse Ox 93 L 10/06/20 19:30 Intake & Output 10/06/20 10/06/20 10/07/20 06:59 18:59 06:59 Intake Total 900 900 Balance 900 900 Weight 65.771 kg Intake: Intake, IV Titration 900 900 Amount Dextrose 5%-0.45% NaCl 1, 900 900 000 ml @ 75 mls/hr IV . [id number] [facility] Rx#:[id number] Other: Voiding Method Toilet - Constitutional General appearance: Present: average body habitus - Neck Neck: Absent: lymphadenopathy - Respiratory Respiratory: bilateral: CTA - Cardiovascular Rhythm: regular Heart sounds: normal: S1, S2 Abnormal Heart Sounds: Absent: S3 Gallop - Gastrointestinal General gastrointestinal: Present: soft. Absent: tenderness - Psychiatric Psychiatric: Present: A&O x's 3, appropriate affect, intact judgment & insight - Labs CBC & Chem 7: 10/05/20 07:24 10/05/20 07:24 Assessment and Plan (1) Intractable pain Current Visit: Yes Status: Acute Code(s): R52 - PAIN, UNSPECIFIED SNOMED Code(s): 19824407 (2) History of breast cancer in female Current Visit: No Status: Chronic Priority: Low Code(s): Z85.3 - PERSONAL HISTORY OF MALIGNANT NEOPLASM OF BREAST SNOMED Code(s): 710159306 (3) Mass of right lung Current Visit: No Status: Acute Code(s): R91.8 - OTHER NONSPECIFIC ABNORMAL FINDING OF LUNG FIELD SNOMED Code(s): 242831864 Plan: The patient has intractable chest wall pain related to lung mass. Prior history of breast cancer. She is improved. We will continue radiation treatment. Anticipate discharge in the next 48-72 hours
[2020-10-07] MEDS: HYDROmorphone 1 MG/ML 1 ML SYRINGE IVP PRN ×7 (01:13→21:31)
[2020-10-07] MEDS: DEXTROSE 5%-0.45% NACL 1,000 ML IV SCH ×2 (01:14→14:31)
[2020-10-07] MEDS: LORazepam 2 MG/ML INJ IV PRN (02:50)
[2020-10-07] MEDS: LEVOTHYROXINE 75 MCG TAB PO SCH (05:34)
[2020-10-07] MEDS: MORPHINE CONC SOLN 10mg/0.5mL ORAL SYRG PO PRN ×2 (06:53→16:35)
[2020-10-07] MEDS: GABAPENTIN 100 MG CAP PO SCH ×2 (08:45→20:50)
[2020-10-07] MEDS: SENNOSIDES-DOCUSATE SODIUM 1 EACH TAB PO SCH ×2 (08:46→20:49)
[2020-10-07] MEDS: HEPARIN SODIUM,PORCINE/PF 5,000 UNIT/0.5 ML SYRINGE SQ SCH ×2 (08:46→20:50)
[2020-10-07] MEDS: dexAMETHasone 4 MG TAB PO SCH ×3 (08:46→20:50)
[2020-10-07] MEDS: PANTOPRAZOLE 40 MG TABLET PO SCH ×2 (08:46→16:35)
[2020-10-07] MEDS: MORPHINE SULFATE ER 15 MG TABLET PO SCH ×2 (09:51→20:49)
[2020-10-07] MEDS ORDERED: ALBUTEROL NEBULIZED 2.5 MG/3 ML INHALATION PRN (10:41)
[2020-10-07] MEDS: ALPRAZolam 0.5 MG TAB PO PRN (10:47)
--- NOTE | 2020-10-07 13:24 | P.PN ---
Subjective Principal diagnosis: Chest mass. Patient is admitted for large chest wall mass and relative pain. Seems more comfortable today. No nausea. Radiation is being used. No constipation. Pain control is doing much better she is being transitioned to oral medication. Morphine with Dilaudid is being tolerated. The patient states radiation therapy is making the patient feel better. Objective - Vital Signs Vital signs: Vital Signs Temp 98.2 F 10/07/20 12:14 Pulse 95 10/07/20 12:14 Resp 18 10/07/20 12:14 BP 131/86 10/07/20 12:14 Pulse Ox 91 L 10/07/20 12:14 Intake & Output 10/06/20 10/07/20 10/07/20 18:59 06:59 18:59 Intake Total 900 900 Balance 900 900 Weight 65.771 kg Intake: Intake, IV Titration 900 900 Amount Dextrose 5%-0.45% NaCl 1, 900 900 000 ml @ 75 mls/hr IV . [id number] [facility] Rx#:[id number] Other: Voiding Method Toilet Toilet - Constitutional General appearance: Present: average body habitus - EENT Eyes: Present: abnormal pupil ENT: Absent: hard of hearing - Neck Thyroid: bilateral: normal size - Respiratory Respiratory: bilateral: diminished - Cardiovascular Rhythm: regular - Neurologic Neurologic: Absent: focal deficits - Labs CBC & Chem 7: 10/05/20 07:24 10/05/20 07:24 Assessment and Plan (1) Intractable pain Current Visit: Yes Status: Acute Code(s): R52 - PAIN, UNSPECIFIED SNOMED Code(s): 46120501 (2) History of breast cancer in female Current Visit: No Status: Chronic Priority: Low Code(s): Z85.3 - PERSONAL HISTORY OF MALIGNANT NEOPLASM OF BREAST SNOMED Code(s): 871078216 (3) Mass of right lung Current Visit: No Status: Acute Code(s): R91.8 - OTHER NONSPECIFIC ABNORMAL FINDING OF LUNG FIELD SNOMED Code(s): 887268208 Plan: The patient has intractable chest wall pain related to lung mass. Prior history of breast cancer. She is improved. We will continue radiation treatment. Anticipate discharge in the next 48-72 hours
--- NOTE | 2020-10-07 17:07 | P.PN ---
Subjective Progress Note Date: 10/07/20 Principal diagnosis: Intractable posterior chest wall pain 2/2 NSCLC In follow-up today patient has tried the Roxanol, worked on pain, just didn't quite last until next dose due-dose increased. She had her 1st BM in 10 days yesterday. She still has some appetite, denies nausea, cardiac pain, she used rescue inhaler and is requesting nebulizer treatments to keep congestion "broke up". No swelling, she is still ambulatory independently Objective - Vital Signs Vital signs: Vital Signs Temp 98.2 F 10/07/20 12:14 Pulse 95 10/07/20 12:14 Resp 18 10/07/20 12:14 BP 131/86 10/07/20 12:14 Pulse Ox 91 L 10/07/20 12:14 Intake & Output 10/06/20 10/07/20 10/07/20 18:59 06:59 18:59 Intake Total 900 900 Balance 900 900 Weight 65.771 kg Intake: Intake, IV Titration 900 900 Amount Dextrose 5%-0.45% NaCl 1, 900 900 000 ml @ 75 mls/hr IV . [id number] [facility] Rx#:[id number] Other: Voiding Method Toilet Toilet - Constitutional General appearance: Present: average body habitus, cooperative, no acute distress - EENT Eyes: Present: anicteric sclerae, edentulous ENT: Present: hearing grossly normal - Respiratory Respiratory: right: other (near absent, few scattered wheezes/crackles), left: CTA, diminished - Cardiovascular Details: mild finger clubbing noted Rhythm: regular Heart sounds: normal: S1, S2 Abnormal Heart Sounds: Absent: systolic murmur, diastolic murmur, rub, S3 Gallop, S4 Gallop, click, other - Peripheral edema leg Peripheral Edema: bilateral: None - Gastrointestinal General gastrointestinal: Present: normal bowel sounds, soft - Neurologic Neurologic: Present: CNII-XII intact - Musculoskeletal Musculoskeletal: Present: strength equal bilaterally - Psychiatric Psychiatric: Present: A&O x's 3, appropriate affect, intact judgment & insight - Labs CBC & Chem 7: 10/05/20 07:24 10/05/20 07:24 Assessment and Plan (1) Right-sided thoracic back pain Narrative/Plan: Patient is on long-acting MS Contin, started roxanol yesterday, did ok, dose adjusted today. Cont on Neurontin. MS contin, roxanol and neurontin sent to [facility] along with steroids Multiple medications are ordered for prevention of narcotic-induced constipation. Listed on discharge paperwork so that she will continue to take these on discharge. Radiation has started. Hopefully patient will get some relief of pain. Current Visit: Yes Status: Acute Priority: High Code(s): M54.6 - PAIN IN THORACIC SPINE SNOMED Code(s): 643888608 (2) Cancer of right lung Narrative/Plan: Recently diagnosed with poorly differentiated adenocarcinoma. From review of the pathology report from 09/24/20 specimen is being sent for NGS and PDL 1 testing. MRI of the brain was negative. Bone scan may have some areas near where the lung tumor is invading the bones that could be mets, but not clear CT of the chest abdomen and pelvis showing no significant findings to suggest metastatic disease outside of the very large lung mass. No longer planning on PET with all the aformentioned scans completed. Treatment plans per Dr. Oneill when pt seen-has appt 10/08/20 at 445 Current Visit: Yes Status: Acute Priority: High Code(s): C34.91 - MALIGNANT NEOPLASM OF UNSP PART OF RIGHT BRONCHUS OR LUNG SNOMED Code(s): 702062567 (3) History of breast cancer in female Current Visit: No Status: Chronic Priority: Low Code(s): Z85.3 - PERSONAL HISTORY OF MALIGNANT NEOPLASM OF BREAST SNOMED Code(s): 861309112 Plan: All of the above was reviewed with the patient. She verbalized understanding t he plan. Spoke with Instrumentation Instructor-got all meds taken care of so pt is ready for discharge. Pt is having a lot of congestion. IM ordered her updrafts that are very helpful in keeping her lungs clear and her resp status decent. She will need a unit and medicine for home use. She will cont her rescue inhalers
[2020-10-07 20:17] VITALS: RESP 16
[2020-10-08] MEDS: HYDROmorphone 1 MG/ML 1 ML SYRINGE IVP PRN ×5 (00:31→16:05)
[2020-10-08] MEDS: MORPHINE CONC SOLN 10mg/0.5mL ORAL SYRG PO PRN ×3 (02:32→14:28)
[2020-10-08] MEDS: DEXTROSE 5%-0.45% NACL 1,000 ML IV SCH (02:34)
[2020-10-08] MEDS: LEVOTHYROXINE 75 MCG TAB PO SCH (05:03)
[2020-10-08] MEDS: MORPHINE SULFATE ER 15 MG TABLET PO SCH (07:58)
[2020-10-08] MEDS: HEPARIN SODIUM,PORCINE/PF 5,000 UNIT/0.5 ML SYRINGE SQ SCH (07:58)
[2020-10-08] MEDS: PANTOPRAZOLE 40 MG TABLET PO SCH (07:58)
[2020-10-08] MEDS: SENNOSIDES-DOCUSATE SODIUM 1 EACH TAB PO SCH (07:58)
[2020-10-08] MEDS: dexAMETHasone 4 MG TAB PO SCH ×2 (07:58→16:04)
[2020-10-08] MEDS: GABAPENTIN 100 MG CAP PO SCH (07:58)
[2020-10-08] MEDS: polyethylene glycoL 3350 17 GM POWD.PACK PO SCH (08:07)
--- NOTE | 2020-10-08 08:48 | P.DS ---
Providers Date of admission: 10/02/20 14:33 Attending physician: Elias Mcnair Consults: 10/02/20 08:20 Consult Physician Routine Consulting Provider: Elvira Oneill Consult Reason/Comments: chest mass Do you want consulting provider notified?: Yes 10/02/20 12:12 Consult Physician Routine Consulting Provider: Elvin Andino Consult Reason/Comments: Painful protruding mass Do you want consulting provider notified?: Yes Primary care physician: Elias Mcnair - Discharge Diagnosis(es) (1) Intractable pain Current Visit: Yes Status: Acute (2) History of breast cancer in female Current Visit: No Status: Chronic Priority: Low (3) Mass of right lung Current Visit: No Status: Acute Hospital Course: This is a discharge summary and a 50-year-old white female who is admitted essentially for intractable chest pain. She has a breast cancer survivor who has now had a diagnosis of lung mass. Radiation therapy and oncologic treatment was appropriately instituted with pain control. The patient is now stable and will continue treatment as an outpatient. She is voiding without significant difficulty tolerating diet and ambulating to baseline. The patient will follow-up with me in less than 7 days. Patient Condition at Discharge: Fair Plan - Discharge Summary Discharge Rx Participant: No New Discharge Prescriptions: New Dexamethasone [Decadron] 4 mg PO TID #90 tablet No Action ALPRAZolam [Xanax] 0.5 mg PO QID PRN PRN Reason: Anxiety Levothyroxine Sodium [Synthroid] 75 mcg PO DAILY HYDROcodone/APAP 10-325MG [Jackson 10-325] 1 tab PO Q6H PRN PRN Reason: Pain Discharge Medication List ALPRAZolam [Xanax] 0.5 mg PO QID PRN 08/25/17 [History] Levothyroxine Sodium [Synthroid] 75 mcg PO DAILY 12/13/17 [History] HYDROcodone/APAP 10-325MG [Jackson 10-325] 1 tab PO Q6H PRN 10/02/20 [History] Dexamethasone [Decadron] 4 mg PO TID #90 tablet 10/06/20 [Rx] Follow up Appointment(s)/Referral(s): Elias Mcnair MD [Primary Care Provider] - 1-2 days Elvira Oneill MD [STAFF PHYSICIAN] - 10/08/20 4:45 pm Activity/Diet/Wound Care/Special Instructions: Prevention of narcotic induced constipation-sennakot s-2 tabs twice a day and miralax 1-2 times a day, every day. [place] fluids. Rx for MS contin, roxanol and neurontin sent to [facility] 10/07 at 1430 Dex Rx ERx
[2020-10-08] MEDS: ALPRAZolam 0.5 MG TAB PO PRN (09:53)
[2020-10-08 12:49] VITALS: BP 112/69; PULSE 78; TEMP 98.6
--- NOTE | 2020-10-08 14:29 | P.PN ---
Subjective Progress Note Date: 10/08/20 Principal diagnosis: Intractable posterior chest wall pain 2/2 NSCLC In follow-up today Reviewed with patient all of the adjustments to her pain management regimen. Encouraged her to take anti-anxiety medicine ATC. Reviewed narcotic-induced constipation prevention. Patient is going to have another dose of radiation today. She has nebulizer machine ordered. O2 tested, and oxygen has already been delivered to her home. Objective - Vital Signs Vital signs: Vital Signs Temp 98.6 F 10/08/20 12:48 Pulse 78 10/08/20 12:48 Resp 16 10/08/20 12:48 BP 112/69 10/08/20 12:48 Pulse Ox 92 L 10/08/20 12:48 Intake & Output 10/07/20 10/08/20 10/08/20 18:59 06:59 18:59 Intake Total 900 600 Balance 900 600 Intake: Intake, IV Titration 900 600 Amount Dextrose 5%-0.45% NaCl 1, 900 600 000 ml @ 75 mls/hr IV . [id number] [facility] Rx#:[id number] Other: Voiding Method Toilet Toilet Toilet # Voids 2 - Constitutional General appearance: Present: average body habitus, cooperative, no acute di stress - EENT Eyes: Present: anicteric sclerae, EOMI ENT: Present: hearing grossly normal, normal oropharynx - Respiratory Respiratory: right: diminished, dullness, left: CTA - Cardiovascular Rhythm: regular Heart sounds: normal: S1, S2 Abnormal Heart Sounds: Absent: systolic murmur, diastolic murmur, rub, S3 Gallop, S4 Gallop, click, other - Peripheral edema leg Peripheral Edema: bilateral: None - Gastrointestinal General gastrointestinal: Present: normal bowel sounds, soft - Neurologic Neurologic: Present: CNII-XII intact - Musculoskeletal Musculoskeletal: Present: strength equal bilaterally - Psychiatric Psychiatric: Present: A&O x's 3, appropriate affect, intact judgment & insight - Labs CBC & Chem 7: 10/05/20 07:24 10/05/20 07:24 Assessment and Plan (1) Right-sided thoracic back pain Narrative/Plan: Patient is on long-acting MS Contin, Roxanol, Neurontin, ibuprofen, dexamethasone. The purpose and the use of each were discussed with patient in detail. She verbalized understanding. Clarify that all prescriptions were available in the pharmacy. Roxanol did require a prior authorization that was obtained by Dr. Nicole's office. Multiple medications for prevention of narcotic-induced constipation, listed on discharge paperwork. Pt will continue to take these on discharge. Cont Radiation per Rad Onc recs. Hopefully patient will get some relief of pain soon. Current Visit: Yes Status: Acute Priority: High Code(s): M54.6 - PAIN IN THORACIC SPINE SNOMED Code(s): 211567071 (2) Cancer of right lung Narrative/Plan: Recently diagnosed with poorly differentiated adenocarcinoma. From review of the pathology report from 09/24/20 specimen is being sent for NGS and PDL 1 testing. MRI of the brain was negative. Bone scan may have some areas near where the lung tumor is invading the bones that could be mets, but not clear CT of the chest abdomen and pelvis showing no significant findings to suggest metastatic disease outside of the very large lung mass. No longer planning on PET with all the aformentioned scans completed. Treatment plans per Dr. Oneill when pt seen-has appt 10/08/20 at 445 Current Visit: Yes Status: Acute Priority: High Code(s): C34.91 - MALIGNANT NEOPLASM OF UNSP PART OF RIGHT BRONCHUS OR LUNG SNOMED Code(s): 891008612 (3) History of breast cancer in female Current Visit: No Status: Chronic Priority: Low Code(s): Z85.3 - PERSONAL HISTORY OF MALIGNANT NEOPLASM OF BREAST SNOMED Code(s): 638320733 Plan: All of the above was reviewed with the patient and SO at bedside. Both verbalized understanding the plan. Encourage the use of anti-anxiety medication around the clock. Spoke with Life Educator, RN-Had to re-prescribe some of the medications Attending ordered as they are not covered by patient's insurance Updrafts are very helpful in keeping her lungs clear and her resp status decent. Unit and medicine ordered for home use. She will cont her rescue inhalers Oxygen levels were tested, patient didn't qualify for O2. They confirmed that this is our treatment delivered. Time with Patient: Greater than 30 (Counseling and coordinating care)
== END 2020-10-08 17:19 | disposition home health service (06) | DRG 948 ==
LOC: EC 20:36 → 6NMEDSUR 10-02 04:52 → OBSVTOIN 10-02 14:33 → 3SCARD 10-02 20:31 → 5NMEDONC 10-05 13:36
PROVIDERS: ADMIT Family Medicine; ATTEND Family Medicine
PROC: DB021ZZ Beam Radiation of Lung using Photons 1 - 10 MeV (ICD-10-PCS; principal; 2020-10-02)
DX: G89.3 Neoplasm related pain (acute) (chronic) (principal); C34.91 Malignant neoplasm of unspecified part of right bronchus or lung; D72.829 Elevated white blood cell count, unspecified; T38.0X5A Adverse effect of glucocorticoids and synthetic analogues, initial encounter; F17.210 Nicotine dependence, cigarettes, uncomplicated; F41.0 Panic disorder [episodic paroxysmal anxiety]; J44.9 Chronic obstructive pulmonary disease, unspecified; Z85.3 Personal history of malignant neoplasm of breast; Z90.13 Acquired absence of bilateral breasts and nipples; Z90.710 Acquired absence of both cervix and uterus; Z92.3 Personal history of irradiation; Z90.2 Acquired absence of lung [part of]; Z79.890 Hormone replacement therapy; Z98.890 Other specified postprocedural states; Z90.49 Acquired absence of other specified parts of digestive tract; Z79.899 Other long term (current) drug therapy
CPT/HCPCS: 36415; 70553; 71045; 71260; 74177; 77280; 77290; 77295; 77300; 77332; 77334; 77336; 77387; 77412; 78306; 80048; 80053; 82306; 83615; 83735; 84100; 84484; 85025; 85379; 85610; 85730; 93005; 94640; 94760; 96374; 96375; 96376; 99285

== ENCOUNTER → 2021-01-05 | Outpatient (CLI) | payer OTHER ==
--- NOTE | 2021-01-05 11:37 | CT ---
EXAMINATION TYPE: CT chest w con DATE OF EXAM: 01/05/2021 COMPARISON: Most recent CT October 04, 2020 and older studies HISTORY: Lung CA follow up originally diagnosed [address] DLP: 195.6 mGycm. Automated Exposure Control for Dose Reduction was Utilized. TECHNIQUE: CT scan of the thorax is performed following with IV Contrast, patient injected with 100 mL of Isovue 300. FINDINGS: LUNGS: There is persistent mild to moderate underlying emphysematous change most prominent in the upp er lungs redemonstrated. There is focal moderate linear scarring presumed postsurgical in the right u pper lobe redemonstrated extending towards the hilum. Posterior lateral right mid to lower lung mass is significantly improved measuring 7.5 x 2.9 cm per study image 27 without chest wall invasion compo nent. There is adjacent right eighth rib involvement but significant improvement or some bone formati on noted from prior study where there was complete obstruction seen on current study axial image 27 e xpanded posterior rib. Moderate right basilar linear scarring and/or atelectasis is more prominent fr om prior study. Small amounts of right pleural fluid collection is more prominent than prior. Loculat ed fluid versus pleural thickening adjacent to linear scarring anterior right upper to mid lung axial image 21 is more prominent. No pneumothorax is evident. Persistent [id number] left basilar akin ear scarring and/or atelectasis. MEDIASTINUM: Lack of IV contrast is noted to limit evaluation for mediastinal and especially hilar a denopathy. There is improved right hilar adenopathy with anterior lymph node measuring 2.7 x 2.4 cm p rior study image 29 versus 13 x 9 mm current study axial image 27. Stable prominent mildly enlarged s ubcarinal lymph node on image 25 from last 2 CTs. Stable prominent paratracheal lymph nodes. More rig ht-sided volume loss with mediastinal shift on current study. Heart size upper limits of normal. No p ericardial effusion is seen. OTHER: Cholecystectomy clips are redemonstrated. Bilateral mastectomy changes redemonstrated. Osseous structures are demineralized. Mild height loss in a few of the thoracic vertebra are redemonstrated. IMPRESSION: Marked improvement in the posterior lateral right mid to lower lung mass and associated r ight hilar adenopathy. New Right sided volume loss with mediastinal shift. Small not simple right ple ural fluid collection is slightly larger versus prior. There is worsening right mid to lower lung sca rring and/or atelectasis.
== END | disposition home or self-care (01) ==
LOC: RADCTMAIN 10:32
PROVIDERS: ATTEND Internal Medicine Hematology & Oncology
DX: C34.31 Malignant neoplasm of lower lobe, right bronchus or lung (principal); J43.9 Emphysema, unspecified; J98.4 Other disorders of lung
CPT/HCPCS: 71260; Q9967

== ENCOUNTER → 2021-03-20 | Outpatient (CLI) | payer OTHER | END | disposition home or self-care (01) | LOC: RADCTMAIN 12:18 | PROVIDERS: ATTEND Internal Medicine Hematology & Oncology | DX: Z53.9 Procedure and treatment not carried out, unspecified reason (principal) ==

== ENCOUNTER → 2021-04-20 | Outpatient (CLI) | payer OTHER ==
[2021-04-20 10:05] LABS: African American GFR (CKD) >90 (>60 ml/min/1.73 sqM); Blood Urea Nitrogen 12 mg/dL (7-17); Non-African American GFR(CKD) >90 (>60 ml/min/1.73 sqM)
--- NOTE | 2021-04-20 12:57 | CT ---
EXAMINATION TYPE: CT ChestAbdPelvis w con DATE OF EXAM: 04/20/2021 COMPARISON: CT dated 01/05/2021 and 10/04/2020 HISTORY: Follow up for lung cancer. CT DLP: 581 mGycm Automated exposure control for dose reduction was used. CONTRAST: CT scan of the chest, abdomen and pelvis is performed with Oral Contrast and with IV Contrast, patien t injected with 100ml mL of Isovue 300. FINDINGS: LUNGS: Smaller known right posterior lung mass measuring 19 x 68 mm compared to 24 x 76 mm previously . It demonstrates hyperdensity within, possibly representing calcification. Persistent loss of volume of the right lung mainly the right lower lobe. Thick scarring/consolidation with air bronchogram is seen in the right lower lobe, possibly related to post radiation changes however underlying residual/ recurrent or metastatic lesions cannot be excluded. Atelectasis is seen in the lower lobes more on th e right side, improved compared to the previous. Small right pleural fluid, significantly improved co mpared to the previous. Soft tissue thickening along the anterior aspect of the right oblique fissure , stable. Persistent COPD changes. Stable postsurgical changes in the right lung. Stable 7 mm nodule along the left oblique fissure. MEDIASTINUM: Cardiomediastinal shift to the right side. Slightly prominent right hilar and subcarinal lymph nodes. For example, a right hilar superior lymph node measures 10 mm compared to 9 mm previous ly. A more inferior right hilar lymph node measures 10.5 mm compared to 7 mm previously. A subcarinal lymph node measures 13 mm compared to 11.5 mm previously. No progressive left hilar or axillary lymp h nodes. The pulmonary trunk measures up to 3.1 cm. This may suggest pulmonary hypertension. OTHER: Grossly stable expansile lytic lesion involving the posterior aspect of the right eighth rib. No definite new bone lesion identified. LIVER/GB: Stable 15 mm hypodensity in segment 7, incompletely characterized. Subtle 12 mm hypodensity in the central portion of the liver anterior to the portal vein bifurcation, not well appreciated pr eviously. Recommend further MRI assessment. No other definite hepatic focal lesion. Previous cholecys tectomy. PANCREAS: No significant abnormality is seen. SPLEEN: No significant abnormality is seen. ADRENALS: No significant abnormality is seen. KIDNEYS: No significant abnormality is seen. BOWEL: Segments of colonic wall thickening, nonspecific. This could be related to colitis however un derlying colonic lesion cannot be excluded, please correlate with coloscopy results. REPRODUCTIVE ORGANS: Previous hysterectomy. No gross adnexal mass. LYMPH NODES: No greater than 1 cm abdominal or pelvic lymph nodes are appreciated. OSSEOUS STRUCTURES: Stable anterior wedging of few lower thoracic vertebra. Osteopenia. No gross aggr essive bone lesion. OTHER: Scattered arterial atherosclerotic calcifications. No sizable ascites. Fat-containing umbilica l hernia. IMPRESSION: 1. Smaller known right posterior lung mass with smaller right pleural effusion and adjacent atelectas is. Stable right eighth rib lesion. 2. Thick consolidation with air bronchogram in the right lower lobe, possibly related to postradiatio n changes however residual/recurrent disease or metastasis cannot be excluded. Attention on follow-up . Further PET scan assessment can be considered. 3. Slightly more prominent right hilar and subcarinal lymph nodes, attention follow-up. 4. Stable segment 7 hepatic lesion with subtle hypodensity in the central portion of the liver as valerie cribed above which could be related to focal fat infiltration however a new metastatic lesion cannot be excluded, for further MRI assessment. 5. No other metastatic disease identified in the chest, abdomen or the pelvis. Other interval changes and incidental findings as described above.
== END | disposition home or self-care (01) ==
LOC: RADCTMAIN 09:10
PROVIDERS: ATTEND Internal Medicine Hematology & Oncology
DX: Z08 Encounter for follow-up examination after completed treatment for malignant neoplasm (principal); C34.31 Malignant neoplasm of lower lobe, right bronchus or lung; J90 Pleural effusion, not elsewhere classified; J98.11 Atelectasis; K76.89 Other specified diseases of liver
CPT/HCPCS: 82565; 84520; 71260; 74177; 36415; Q9967

== ENCOUNTER → 2021-06-22 | Outpatient (CLI) | payer OTHER ==
--- NOTE | 2021-06-22 19:42 | CT ---
EXAMINATION TYPE: CT ChestAbdPelvis w con DATE OF EXAM: 06/22/2021 COMPARISON: CT dated 04/20/2021 HISTORY: Lung cancer CT DLP: 527.3 mGycm Automated exposure control for dose reduction was used. CONTRAST: CT scan of the chest, abdomen and pelvis is performed with Oral Contrast and with IV Contrast, patien t injected with 100 mL of Isovue 300. FINDINGS: LUNGS: Slightly smaller known right posterior lung mass measuring up to 6.8 cm compared to 7 cm previ ously. Stable marginal hyperdensity. Larger soft tissue component seen inferior to the hyperdensity m easuring 2.3 cm compared to 18mm previously. Progressive malignant lesion cannot be excluded. Persist ent atelectasis/scarring at the superior aspect of the right lower lobe. Smaller 7 mm left oblique fi ssure nodule. No new or other progressive lung lesion. MEDIASTINUM: Unchanged heart and great mediastinal vessels. Persistent right hilar soft tissue/lymph node measuring up to 2.3 cm compared to 2.2 cm previously. Grossly stable 16mm subcarinal lymph node. The remainder of the previously seen enlarged mediastinal and right hilar lymph nodes are stable. No pericardial effusion. OTHER: Scattered osseous lucencies, largest being expansile involving the posterior aspect of the ri ght eighth rib. Further correlation bone scan can be considered. Stable multilevel thoracic vertebral body collapse. LIVER/GB: Stable 15 mm right hepatic lobe segment 7 cm lesion. No other definite hepatic focal lesion identified. Previous cholecystectomy. PANCREAS: No significant abnormality is seen. SPLEEN: No significant abnormality is seen. ADRENALS: Stable left adrenal nodules. Unremarkable right adrenal. KIDNEYS: No significant abnormality is seen. BOWEL: Fecal loading of the colon. REPRODUCTIVE ORGANS: Previous hysterectomy. No gross adnexal mass. LYMPH NODES: No greater than 1 cm abdominal or pelvic lymph nodes are appreciated. OSSEOUS STRUCTURES: No gross aggressive bone lesion. OTHER: Arterial atherosclerotic calcifications. No sizable ascites. Fat-containing umbilical hernia. IMPRESSION: Slightly smaller right posterior lung mass however there is newly seen enlarging component along the inferior aspect of the mass concerning for progressive malignant lesion. Recommend further PET scan a ssessment. Other minimal interval changes as detailed above. No other obvious progressive metastatic lesions seen in the chest, abdomen or the pelvis.
== END | disposition home or self-care (01) ==
LOC: RADCTMAIN 10:39
PROVIDERS: ATTEND Internal Medicine Hematology & Oncology
DX: C34.90 Malignant neoplasm of unspecified part of unspecified bronchus or lung (principal); M48.54XA Collapsed vertebra, not elsewhere classified, thoracic region, initial encounter for fracture; K42.9 Umbilical hernia without obstruction or gangrene; I70.90 Unspecified atherosclerosis; Z90.710 Acquired absence of both cervix and uterus
CPT/HCPCS: 71260; 74177; Q9967

== ENCOUNTER → 2021-11-12 | Outpatient (CLI) | payer MEDICARE, OTHER ==
[2021-11-12 08:51] LABS: African American GFR (CKD) >90 (>60 ml/min/1.73 sqM); Blood Urea Nitrogen 15 mg/dL (7-17); Non-African American GFR(CKD) >90 (>60 ml/min/1.73 sqM)
--- NOTE | 2021-11-12 11:03 | CT ---
EXAMINATION TYPE: CT ChestAbdPelvis w con DATE OF EXAM: 11/12/2021 COMPARISON: 06/22/21 HISTORY: Follow up of lung cancer CT DLP: 457.7 mGycm CONTRAST: CT scan of the chest, abdomen and pelvis is performed with Oral Contrast and with IV Contrast, patien t injected with 70 mL of Isovue 300. CT Chest: LUNGS: Difficult to measure right lower lobe mass density is again redemonstrated and currently measu res 6.9 cm in greatest dimension versus 6.8 cm previously. There is peripheral hyperdensity noted. En larging mass is also noted inferiorly measuring 3.4 cm currently versus 2.3 cm previously. Enlarging small right-sided pleural effusion. Right-sided volume loss. Emphysematous changes redemonstrated. Li near scarring left lung base. Hyperinflation left lung. MEDIASTINUM: Thoracic aorta is of normal caliber. The heart is not enlarged. Subcarinal adenopathy at 1.2 cm versus 1.3 cm. HILAR STRUCTURES: Right hilar adenopathy appears stable and measures 1.2 cm versus 1.2 cm previously. OTHER: Scattered osseous lucencies, largest being expansile involving the posterior aspect of the rig ht eighth rib. Further correlation bone scan can be considered. Stable multilevel thoracic vertebral body collapse CONTRAST CT ABDOMEN AND PELVIS FINDINGS: LIVER/GB: The gallbladder is surgically absent. Too small to characterize lesion dome of the liver me asures 8 mm versus 1.4 cm previously. No additional hepatic lesions seen. Biliary tree is of normal c aliber. PANCREAS: No inflammation. No distinct mass. SPLEEN: No splenic enlargement. No lesion seen. ADRENALS: No nodule. No thickening. KIDNEYS/BLADDER: No hydronephrosis. No nephrolithiasis. No disctinct renal mass. BOWEL: Normal appendix. Normal bowel caliber. No inflammation. GENITAL ORGANS: No gross abnormality. LYMPH NODES: No greater than 1cm abdominal or pelvic lymph nodes are appreciated. AORTA: No significant abnormality. OSSEOUS STRUCTURES: No significant abnormality is seen. OTHER: No significant additional abnormality is seen. IMPRESSION: 1. Difficult to measure right upper lobe mass is again seen and remains essentially unchanged with re gards overall morphology and size. More inferiorly however there is an enlarging mass which measures 3.4 cm versus 2.3 cm previously. 2. Essentially stable right hilar and mediastinal adenopathy. 3. Stable rib lesions and multilevel thoracic vertebral body collapse.
== END | disposition home or self-care (01) ==
LOC: RADCTMAIN 07:52
PROVIDERS: ATTEND Internal Medicine Hematology & Oncology
DX: C34.31 Malignant neoplasm of lower lobe, right bronchus or lung (principal)
CPT/HCPCS: 82565; 84520; 71260; 74177; Q9967 ×2

== ENCOUNTER → 2022-01-01 | Outpatient (CLI) | payer MEDICARE, OTHER ==
--- NOTE | 2022-01-02 12:26 | PE ---
EXAMINATION TYPE: PET CT fusion skull to thigh DATE OF EXAM: 01/01/2022 CLINICAL INDICATION:Female, 51 years old with history of C34.31 lung ca; TECHNIQUE: Following the intravenous administration of 11.92 mCi of F-18 FDG, whole body images are performed from the skull base to the midthigh. Images are reviewed on the computer in the coronal, axial, and sagittal planes. Reconstructed rotating images are created on independent workstation and reviewed on the computer. A non-contrast CT is performed in conjunction with the PET scan. Glucose level 79 mg/dL COMPARISON: CT 11/12/2021, PET/CT 12/27/2015, nuclear medicine bone scan 10/06/2020 FINDINGS: Mediastinal SUV mean is 1.5. Hepatic parenchyma SUV mean is 1.9. SKULL BASE AND NECK: No suspicious FDG activity. CHEST, MEDIASTINUM, AND HILAR REGION: Right peripheral pleural lower lung thickening with desiccation increased FDG activity max SUV 7.0 which is increased from 2016. Overall area measures roughly 3.8 x 6.0 cm and has a crescent shape along the pleura. ABDOMEN AND PELVIS: No suspicious FDG activity. OSSEOUS STRUCTURES: Osseous structures in the right posterior rib near FDG demonstrate mild FDG activ ity max SUV 2.4 in the right rib 7 and no identifiable increase activity above background in right ri bs [address]: Atherosclerosis of the arterial vasculature including the coronary arteries. The gallbladde r surgically absent. Moderate stool burden throughout the colon. Colonic diverticulosis. Fat-containi ng umbilical hernia. IMPRESSION: 1. Right lower lung peripheral elongated crescent-shaped consolidation changes with increased FDG ac tivity and calcifications compared to prior PET in 2016. Given its size has not significantly changin g from 04/20/2021 with increased calcification during that period a chronic infectious/inflammatory pro cesses is suggested. Tissue sampling is recommended of this area possibly with cultures. No evidence of metastatic disease. 2. The ribs immediately adjacent CG activity in the lung with expansile destructive changes of rib 7 has mildly increased FDG activity within rib 7 and no significant activity in ribs 6 and 8. Consider osseous sampling of rib 7.
== END | disposition home or self-care (01) ==
LOC: RADPETMAIN 07:46
PROVIDERS: ATTEND Internal Medicine Hematology & Oncology
DX: C34.31 Malignant neoplasm of lower lobe, right bronchus or lung (principal)
CPT/HCPCS: 78815; A9552

== ENCOUNTER → 2022-07-02 | Outpatient (CLI) | payer MEDICARE, OTHER ==
--- NOTE | 2022-07-03 15:42 | PE ---
EXAMINATION TYPE: PET CT fusion skull to thigh DATE OF EXAM: 07/02/2022 COMPARISON: Prior PET/CT March 26, 2022 and older studies. HISTORY: Right-sided non-small cell lung cancer progress study. Patient completed immunotherapy Mar. TECHNIQUE: Following the intravenous administration of 12.46 mCi of F-18 FDG, whole body images are performed from the skull base to the midthigh. Images are reviewed on the computer in the coronal, a xial, and sagittal planes. Reconstructed rotating images are created on independent workstation and reviewed on the computer. A localization and attenuation correction CT is performed in conjunction with the PET scan. Blood glucose level equals 79 SCAN: Subsequent Scan FINDINGS: SKULL BASE AND NECK: No new areas of abnormal hypermetabolic uptake. CHEST, MEDIASTINUM, AND HILAR REGION: Moderate underlying emphysematous changes are redemonstrated. S urgical changes to the right lung are again seen. There is posterior pleural based mass with some valerie truction of the adjacent posterior rib and partial calcification redemonstrated. Area of abnormal hyp ermetabolic uptake is larger in size on current study with adjacent soft tissue opacification/atelect asis, max SUV is 7.48 versus 5.8 on prior. No new areas of abnormal hypermetabolic uptake. ABDOMEN AND PELVIS: No new areas of abnormal hypermetabolic uptake. Normal excretion redemonstrated. OSSEOUS STRUCTURES: No new areas of abnormal hypermetabolic uptake. OTHER CT: Right-sided volume loss redemonstrated. Cholecystectomy clips are again seen. Small fat-con taining umbilical hernia redemonstrated. Uterus is surgically absent. Scattered bilateral pelvic phle boliths noted. Underlying scoliosis or scoliotic positioning is present. IMPRESSION: Local neoplastic progression. No new metastatic disease.
== END | disposition home or self-care (01) ==
LOC: RADPETMAIN 11:30
PROVIDERS: ATTEND Internal Medicine Hematology & Oncology
DX: C34.31 Malignant neoplasm of lower lobe, right bronchus or lung (principal)
CPT/HCPCS: 78815; A9552

== ENCOUNTER → 2022-08-09 | Outpatient (CLI) | payer MEDICARE ==
--- NOTE | 2022-08-09 13:18 | CT ---
EXAMINATION TYPE: CT chest w con DATE OF EXAM: 08/09/2022 COMPARISON: 11/12/2021 HISTORY: h/o lung CA, f/u for a right lung nodule CT DLP: 175.2 mGycm, Automated exposure control for dose reduction was used. CONTRAST: Performed injected with 100 mL of Isovue 300. TECHNIQUE: Axial images were obtained at 5 mm thick sections. Reconstructed images are reviewed on [employer] computer in the coronal plane. FINDINGS: Portion of the thyroid visualized is normal. There is a large consolidation to the posterior lateral right lung. A few air bronchograms are presen t. Stranding is adjacent. There is expansion of a rib posterior to this lung lesion. Findings appear similar to the comparison study. 1Previously described smaller mass inferior to this larger consolidation area appears smaller than th e comparison study. No interval growth is evident. There may be some emphysematous or pulmonary fibrosis changes through this right lung. No enlarged mediastinal or hilar adenopathy is evident. The ascending aorta diameter at the level o f the main pulmonary artery is 3.3 cm. The main pulmonary artery diameter at the bifurcation is 2.[address] sections are obtained through the upper abdomen. Abdomen is essentially unremarkable. IMPRESSIONS: 1. Stable appearance of the neoplastic area posterior right lung. 2. No suspicious changes to suggest enlargement or new metastatic areas.
== END | disposition home or self-care (01) ==
LOC: RADCTMAIN 09:52
PROVIDERS: ATTEND Radiology Radiation Oncology
DX: C34.31 Malignant neoplasm of lower lobe, right bronchus or lung (principal); C77.1 Secondary and unspecified malignant neoplasm of intrathoracic lymph nodes; I74.9 Embolism and thrombosis of unspecified artery; Z92.3 Personal history of irradiation
CPT/HCPCS: 71260; Q9967

== ENCOUNTER → 2022-10-02 | Outpatient (CLI) | payer MEDICARE, OTHER ==
--- NOTE | 2022-10-05 14:33 | PE ---
EXAMINATION TYPE: PET CT fusion skull to thigh DATE OF EXAM: 10/02/2022 COMPARISON: CT chest 08/09/2022 Prior PET/CT: 07/02/2022 HISTORY: lung cancer history of breast cancer TECHNIQUE: Following the intravenous administration of 9.66 mCi of F-18 FDG, whole body images are p erformed from the skull base to the midthigh. Images are reviewed on the computer in the coronal, ax ial, and sagittal planes. Reconstructed rotating images are created on independent workstation and r eviewed on the computer. A localization and attenuation correction CT is performed in conjunction w ith the PET scan. DLP: 210.24 mGycm SCAN: Subsequent Blood glucose: 87 mg/dL Average Mediastinum SUV: 1.48 Average Liver SUV: 1.72 FINDINGS: NECK: There is some uptake within the left tonsillar pillar with an SUV of 4.7. The contralateral ri ght tonsillar pillar has slight increased uptake at 2.55. Small focus of radiotracer is in the left i nternal parotid region could be a small lymph node with an SUV of 2.58. Image 32. Metastatic disease should be considered. THORAX: There is some mild paraspinal muscular uptake. There is increased uptake within the right pos terior lateral lung base with an SUV value of 8.2 which can be compatible with neoplasm. Prior SUV of this region is 7.16. ABDOMEN: No abnormal uptake PELVIS: No abnormal uptake OSSEOUS STRUCTURES: No abnormal uptake LOCALIZATION CT: Scattered diverticuli within the colon. Posterior right lung mass on mediastinal win dows currently measures 5.6 x 3.6 cm. COMPARISON: Uptake within the tonsillar pillars appears increased compared to prior examination. The internal carotid uptake appears new. IMPRESSION: 1. Increase in SUV of a posterior right lung lesion. 2. Increasing uptake within the tonsillar pillars. 3. There is a new area of mild uptake within the internal left parotid region, metastatic lesion is n ot excluded.
== END | disposition home or self-care (01) ==
LOC: RADPETMAIN 09:01
PROVIDERS: ATTEND Internal Medicine Sleep Medicine
DX: C34.31 Malignant neoplasm of lower lobe, right bronchus or lung (principal); C77.1 Secondary and unspecified malignant neoplasm of intrathoracic lymph nodes; I74.9 Embolism and thrombosis of unspecified artery; R93.89 Abnormal findings on diagnostic imaging of other specified body structures; Z92.3 Personal history of irradiation
CPT/HCPCS: 78815; A9552

== ENCOUNTER → 2023-01-10 | Outpatient (CLI) | payer MEDICARE ==
--- NOTE | 2023-01-10 10:28 | CT ---
EXAMINATION TYPE: CT chest w con DATE OF EXAM: 01/10/2023 COMPARISON: Most recent prior chest CT August 09, 2022 and older studies HISTORY: Hx of rt side lung CA. CT DLP: 128.8 mGycm. Automated Exposure Control for Dose Reduction was Utilized. TECHNIQUE: CT scan of the thorax is performed following with IV Contrast, patient injected with 100 ml mL of Isovue 300. FINDINGS: LUNGS: Moderate underlying emphysematous changes are redemonstrated. Mild biapical pleural/parenchyma l scarring again seen. Surgical changes to the right lung are again seen. There is posterior pleural based mass with some destruction of the adjacent posterior rib and partial calcification redemonstrat ed. Heterogeneous hyperdense mass surrounding consolidation/atelectasis is felt more prominent from m ost recent prior CT measuring 2.7 x 2.4 cm axial image 33 versus 1.8 x 1.3 cm prior study axial image 33. The lesion is overall best measured on PET/CT. Persistent mild to moderate right greater than le ft bibasilar linear scarring and/or atelectasis. Adjacent expansile mixed lytic and sclerotic right r ib lesion again seen. No new masses. MEDIASTINUM: There is more suspicious 1.6 x 1.4 cm right tracheobronchial lymph node axial image 26. This was ametabolic on the most recent PET CT however. No pericardial effusion is seen. Hypodense normal-sized thyroid is noted. OTHER: Heterogeneity to the spleen redemonstrated. Slight scoliotic curvature redemonstrated. IMPRESSION: Enlarging posterior right lung mass or neoplasm is confirmed as better seen on recent PET /CT consistent with neoplasm progression.
== END | disposition home or self-care (01) ==
LOC: RADCTMAIN 08:50
PROVIDERS: ATTEND Radiology Radiation Oncology
DX: C34.31 Malignant neoplasm of lower lobe, right bronchus or lung (principal); C77.1 Secondary and unspecified malignant neoplasm of intrathoracic lymph nodes; Z92.3 Personal history of irradiation
CPT/HCPCS: 71260; Q9967

== ENCOUNTER → 2023-02-10 | Outpatient (CLI) | payer MEDICARE ==
--- NOTE | 2023-02-15 08:19 | PE ---
EXAMINATION TYPE: PET CT fusion skull to thigh DATE OF EXAM: 02/10/2023 COMPARISON: 01/10/2023 Prior PET/CT: 10/02/2022 HISTORY: Right lower lobe malignant neoplasm TECHNIQUE: Following the intravenous administration of 9.1 mCi of F-18 FDG, whole body images are pe rformed from the skull base to the midthigh. Images are reviewed on the computer in the coronal, axi al, and sagittal planes. Reconstructed rotating images are created on independent workstation and re viewed on the computer. A localization and attenuation correction CT is performed in conjunction wi th the PET scan. DLP: 164 port. mGycm SCAN: Subsequent Blood glucose: 93 mg/dL Average Mediastinum SUV: 1.96 Average Liver SUV: 2.33 FINDINGS: NECK: There is mild uptake within the region of the left carotid gland may be a small lymph node wit hin SUV of 2.38. Tonsillar pillar uptake appears similar. Left torus tubarius uptake SUV of 3.3. Prev ious SUV 4.25, image 21 THORAX: There is some pleural-based increased signal at the right anterior lateral lung. This has an SUV of 2.21, example image 86. Previous SUV 1.13. Within the posterior lung there is also some pleural thickening or density measuring 2.41. This thick ens as it extends inferiorly with focal marked in its activity right posterior lung base with an SUV of 9.51 exam: Image 98. Previous SUV 8.2 ABDOMEN: No abnormal uptake PELVIS: No abnormal uptake OSSEOUS STRUCTURES: No abnormal uptake LOCALIZATION CT: Lung findings appear similar on the localization CT. COMPARISON: Increasing uptake within the lung densities. IMPRESSION: 1. Increased uptake within the lung mass and pleural-based density. 2. Uptake within the region of the left torus tubarius with some increased uptake near the parotid gl and. Additional workup of this area is recommended. Underlying neoplasm is not excluded.
== END | disposition home or self-care (01) ==
LOC: RADPETMAIN 09:04
PROVIDERS: ATTEND Internal Medicine Hematology & Oncology
DX: C34.31 Malignant neoplasm of lower lobe, right bronchus or lung (principal)
CPT/HCPCS: 78815; A9552

== ENCOUNTER → 2023-06-09 | Outpatient (CLI) | payer MEDICARE ==
--- NOTE | 2023-06-10 12:07 | PE ---
EXAMINATION TYPE: PET CT fusion skull to thigh DATE OF EXAM: 06/09/2023 COMPARISON: CT chest 01/10/2023 Prior PET/CT: 02/10/2023 HISTORY: Lung cancer TECHNIQUE: Following the intravenous administration of 9.25 mCi of F-18 FDG, whole body images are p erformed from the skull base to the midthigh. Images are reviewed on the computer in the coronal, ax ial, and sagittal planes. Reconstructed rotating images are created on independent workstation and r eviewed on the computer. A localization and attenuation correction CT is performed in conjunction w ith the PET scan. DLP: 169.05 mGycm SCAN: Subsequent Blood glucose: 84 mg/dL Average Mediastinum SUV: 1.76 Average Liver SUV: 2.43 FINDINGS: NECK: No abnormal uptake. Previous uptake not evident on the current exam. THORAX: There is mild uptake within the posterior pleural-based density right midlung. Example image 91, SUV 3.54. Previous SUV 9.51. There is intermediate uptake within the anterior lateral pleural-based density, image 85, SUV 1.86. P revious SUV 2.14. No suspicious mediastinal or hilar uptake. ABDOMEN: No abnormal uptake PELVIS: No abnormal uptake OSSEOUS STRUCTURES: No abnormal uptake LOCALIZATION CT: Pleural-based calcification is adjacent to the posterior pleural thickening. COMPARISON: Radiotracer within the lung ortega has diminished. Previous neck radiotracer not evident. No new radiotracer accumulations. IMPRESSION: 1. Diminished uptake within the previous posterior right lung neoplasm. 2. No new focal areas of uptake to suggest metastasis.
== END | disposition home or self-care (01) ==
LOC: RADPETMAIN 11:37
PROVIDERS: ATTEND Radiology Radiation Oncology
DX: C77.1 Secondary and unspecified malignant neoplasm of intrathoracic lymph nodes (principal); C34.31 Malignant neoplasm of lower lobe, right bronchus or lung; Z85.3 Personal history of malignant neoplasm of breast; Z92.3 Personal history of irradiation
CPT/HCPCS: 78815; A9552

== ENCOUNTER → 2023-09-13 | Outpatient (CLI) | payer MEDICARE ==
--- NOTE | 2023-09-13 19:59 | CT ---
EXAMINATION TYPE: CT chest w con DATE OF EXAM: 09/13/2023 COMPARISON: PET/CT 06/09/2023, 02/10/2023, CT scan 01/10/2023 HISTORY: Rt sided rib pain, history of lung CA CT DLP: 123.8 mGycm Automated exposure control for dose reduction was used. TECHNIQUE: CT scan of the chest is performed with IV Contrast, patient injected with 100 mL of Isovue 300. MIP Images are created on CT scanner and reviewed. 3D reconstructed images are created on an independent workstation and reviewed. FINDINGS: LUNGS: Moderate underlying emphysematous changes are redemonstrated. Mild biapical pleural/parenchyma l scarring again seen. Surgical changes to the right lung are again seen. There is posterior pleural based mass with some de struction of the adjacent posterior rib and partial calcification redemonstrated. Heterogeneous hyper dense mass surrounding consolidation/atelectasis is reduced in size measuring 1.8 x 2.9 cm and previo usly measuring 2.7 x 2.4 cm. Persistent mild to moderate right greater than left bibasilar linear sca rring and/or atelectasis. Adjacent expansile mixed lytic and sclerotic right rib lesion again seen. N o new masses. Additional areas of pleural-based mass thickening stable. There is a small right pleural effusion which is stable. No pneumothorax. Extensive emphysematous vicky nges and biapical pleural thickening are stable MEDIASTINUM: Stable paratracheal lymph node measuring short axis of 1.4 cm. No pericardial effusion is seen. There are borderline mediastinal and hilar lymph nodes. OTHER: Multilevel degenerative disc disease. There is a compression fracture approximately 40% loss of height in the midthoracic spine which is stable. Expansile right rib lesion also noted which is st able. Findings are suspicious for metastatic disease. Calcification or clip partially included in the [id number]. Pancreatic region. Stable. Thickening of the adrenal glands is nonspecific bilaterall y. There is right hepatic dome heterogeneously enhancing lesion. This could be related to a flash faye ioma. Given the patient's history recommend MRI of the liver. Measures 1.6 cm. Retrospectively may duron ve been present on prior exam. Was not metabolically active by prior PET scan. IMPRESSION: 1. Interval reduction in size of the heterogeneous posterior right lung mass now measuring 1.8 x 2.9 cm versus 2.7 x 2.4 cm stent prior exam. 2. Stable paratracheal lymphadenopathy. 3. No evidence of new mass or adenopathy. 4. Stable lytic lesion right rib cage and compression fracture midthoracic spine. 5. There is a 1.6 cm hepatic dome partially enhancing lesion. Possibly hemangioma. Given the patient' s history recommend dedicated MRI of the liver. Retrospectively likely was present on prior exam NOT metabolically active by previous PET scan. Follow-up recommendations for incidental pulmonary nodules are per [employer] or [employer].
== END | disposition home or self-care (01) ==
LOC: RADCTMAIN 08:59
PROVIDERS: ATTEND Radiology Radiation Oncology
DX: C77.1 Secondary and unspecified malignant neoplasm of intrathoracic lymph nodes (principal); C34.31 Malignant neoplasm of lower lobe, right bronchus or lung; R59.1 Generalized enlarged lymph nodes; M48.54XA Collapsed vertebra, not elsewhere classified, thoracic region, initial encounter for fracture; Z92.3 Personal history of irradiation
CPT/HCPCS: 71260; Q9967

== ENCOUNTER → 2023-11-10 | Outpatient (CLI) | payer MEDICARE ==
--- NOTE | 2023-11-14 00:16 | PE ---
EXAMINATION TYPE: PET CT fusion skull to thigh DATE OF EXAM: 11/10/2023 COMPARISON: CT chest 09/13/2023 Prior PET/CT: 06/09/2023 HISTORY: Lung cancer TECHNIQUE: Following the intravenous administration of 11.94 mCi of F-18 FDG, whole body images are performed from the skull base to the midthigh. Images are reviewed on the computer in the coronal, a xial, and sagittal planes. Reconstructed rotating images are created on independent workstation and reviewed on the computer. A localization and attenuation correction CT is performed in conjunction with the PET scan. DLP: 191.24 mGycm SCAN: Subsequent Blood glucose: 92 mg/dL Average Mediastinum SUV: 1.76 Average Liver SUV: 2.18 FINDINGS: NECK: No abnormal uptake THORAX: There is thickening along the posterior right lung base with some calcified pleural thickenin g. This has intermediate SUV, example image 94, SUV 2.59. No suspicious mediastinal or hilar uptake evident. ABDOMEN: No abnormal uptake. No suspicious uptake is at the dome of the liver adjacent to the diaphragm. PELVIS: No abnormal uptake OSSEOUS STRUCTURES: Abnormal uptake is in lateral right ribs are image 101, anterior SUV 5.04 posteri or SUV 4.[address]: Pleural calcifications posterior lateral right mid to lower lung field. Abnormal rib expansion is in the posterior lateral right ribs. Suspicious uptake within this region is not eviden t. COMPARISON: Uptake within the right lateral ribs appears to be new. The intermediate uptake within th e pleural thickening is similar IMPRESSION: 1. Mild intermediate signal within the patient's previous posterior right lung cancer. 2. No interval growth or increasing radiotracer suggest recurrence. 3. There are couple of areas of uptake within the right ribs laterally. Metastatic disease should be considered. Posttraumatic change could be within the differential [facility], , 11/14/2023 12:13 AM
== END | disposition home or self-care (01) ==
LOC: RADPETMAIN 07:58
PROVIDERS: ATTEND Internal Medicine Hematology & Oncology
DX: C34.31 Malignant neoplasm of lower lobe, right bronchus or lung
CPT/HCPCS: 78815

== ENCOUNTER → 2024-03-14 | Outpatient (CLI) | payer MEDICARE ==
--- NOTE | 2024-03-14 14:42 | CT ---
EXAMINATION TYPE: CT chest w con DATE OF EXAM: 03/14/2024 COMPARISON: 09/13/2023 and 11/10/2023 HISTORY: 54-year-old female C5 0.919, hx of lung ca, obs for mets. TECHNIQUE: Contiguous axial scanning of the chest after the administration of 100 mL of Isovue 300. Coronal/sagittal reconstructions performed. CT DLP: 265mGycm. Automatic exposure control utilized for a dose reduction. FINDINGS: Are normal size without pericardial effusion. Aorta normal caliber with conventional arterial to brachial anatomy. No thoracic lymphadenopathy seen. Prominent but nonenlarged 8 mm lower right paratracheal lymph node is unchanged. Posttreatment change throughout the right lung with extensive pleural parenchymal opacities, architec tural distortion, and volume loss. Small right pleural effusion remains. Irregularity of multiple right-sided ribs along with pathologic fractures of the right lateral sixth and eighth ribs redemonstrated. Slight interval displacement of the eighth rib fracture. The pleural-parenchymal thickening and associated calcifications posterior right midlung appears alanis lar. Patchy opacity posterior right base is unchanged. Subpleural opacity anteromedial right mid lung measuring 1.9 cm is unchanged. Background moderate emphysema. Some patchy suspected atelectasis posterior left lung base. Subpleural opacity lateral right lower lung, axial image 36 at the site of previous increased FDG upt john appears smaller now 1.0 cm versus 1.2 cm, previously. Visualized upper abdomen shows cholecystectomy clips. Left adrenal nodularity measuring up to 1.2 cm appears unchanged back to 09/13/2023. Chronic fracture through the midportion of the T7 vertebral body. IMPRESSION: 1. Extensive posttreatment changes throughout the right lung with multiple pleural parenchymal opacit ies, areas of lung distortion, and similar small right pleural effusion. 2. Subpleural nodularity at the lateral right base is slightly smaller at 1.0 cm versus 1.2 cm on 10/16. 3. Previous eighth rib fracture shows slight interval displacement. 4. No progression is identified. 5. Stable nodularity of the left adrenal gland measuring up to 1.2 cm. [facility], Workstation: [id number], 03/14/2024 2:39 PM
== END | disposition home or self-care (01) ==
LOC: RADCTMAIN 10:59
PROVIDERS: ATTEND Internal Medicine Hematology & Oncology
DX: S22.39XD Fracture of one rib, unspecified side, subsequent encounter for fracture with routine healing (principal); C50.919 Malignant neoplasm of unspecified site of unspecified female breast; C34.31 Malignant neoplasm of lower lobe, right bronchus or lung; G89.3 Neoplasm related pain (acute) (chronic); E03.9 Hypothyroidism, unspecified; F41.9 Anxiety disorder, unspecified; J90 Pleural effusion, not elsewhere classified; Z85.118 Personal history of other malignant neoplasm of bronchus and lung; X58.XXXD Exposure to other specified factors, subsequent encounter
CPT/HCPCS: 71260; Q9967

== ENCOUNTER → 2024-06-12 | Outpatient (CLI) | payer MEDICARE ==
--- NOTE | 2024-06-12 13:20 | CT ---
EXAMINATION TYPE: CT ChestAbdPelvis w con DATE OF EXAM: 06/12/2024 12:36 PM COMPARISON: 03/14/2024, 11/10/2023 CLINICAL INDICATION: Female, 54 years old with history of C34.31 LUNG CANCER; [facility], follow up lung can cer Technique: CT of the chest, abdomen, and pelvis after IV contrast. Delayed images through the kidneys and coronal/sagittal reconstructions performed. Contrast used:100 ml mL of Isovue 300 with IV Contrast, (None if empty) Oral contrast used: without Oral Contrast CT DLP: 1104 mGycm, Automated exposure control for dose reduction was used. Findings: CHEST: . Heart normal size without pericardial effusion. Aorta normal caliber with conventional arch vessel branching anatomy. Similar prominent but nonenlarged precarinal lymph nodes measuring up to 7 mm. No progressive thoraci c lymphadenopathy by CT size criteria. Redemonstrated extensive postsurgical and posttreatment changes throughout the right lung with scatte red areas of prominent pleural parenchymal scarring and trace basilar right pleural effusion. The previously mentioned anterior right basilar nodularity which measured 1.1 cm has enlarged in the interval with chest wall involvement currently measuring 3.8 x 2.3 cm. Background moderate emphysematous changes. Biapical pleural-parenchymal scarring. ABDOMEN: No focal liver lesion. Mild intrahepatic and extra hepatic biliary ductal dilatation is unchanged. Pa tient status post cholecystectomy. Portal venous system is patent. Right adrenal gland, spleen, and pancreas within normal limits. Tiny renal cortical cysts measuring up to 7 mm on both sides. 3 mm nonobstructive left renal stone. 2 nodules within the left adrenal gland measuring 1.0 cm and 1.2 cm remain unchanged. No dilated small bowel, free fluid, or free air. No mesenteric or retroperitoneal lymphadenopathy see n. Small fatty umbilical hernia. There is scattered moderate stool. No pericolonic inflammatory change. Pelvis: Bladder urine distended. Uterus surgically absent. Multiple pelvic phleboliths. No abnormal fluid col lection in the pelvis or pelvic lymphadenopathy. Unable to clearly delineate the ovaries. Bones: Multiple right-sided rib deformities are combination of prior metastatic disease and posttreatment ch pro and pathologic fractures. The site of recurrence coincides to the right anterolateral sixth rib. Chronic vertebral body fracture of T7. IMPRESSION: 1. Chest wall/pleural recurrence with a 3.8 x 2.3 cm soft tissue lesion centered at the right anterol ateral sixth rib. Near the site of the previously mentioned 1.1 cm subpleural nodule. 2. Extensive postsurgical and posttreatment change with extensive distortion and pleural parenchymal scarring throughout the remainder of the right lung. All of these changes otherwise appear relatively similar as does the trace right pleural effusion. 3. 2 left adrenal nodules measuring up to 1.2 cm are also unchanged. [facility], , 06/12/2024 1:17 PM
== END | disposition home or self-care (01) ==
LOC: RADCTMAIN 09:00
PROVIDERS: ATTEND Internal Medicine Hematology & Oncology
DX: C34.31 Malignant neoplasm of lower lobe, right bronchus or lung (principal); G89.3 Neoplasm related pain (acute) (chronic); E03.9 Hypothyroidism, unspecified; F41.9 Anxiety disorder, unspecified; R91.1 Solitary pulmonary nodule; J98.4 Other disorders of lung; E27.9 Disorder of adrenal gland, unspecified
CPT/HCPCS: 71260; 74177; Q9967

== ENCOUNTER → 2024-07-12 | Outpatient (CLI) | payer MEDICARE ==
--- NOTE | 2024-07-16 22:47 | PE ---
EXAMINATION TYPE: PET CT fusion skull to thigh DATE OF EXAM: 07/12/2024 COMPARISON: CT chest abdomen and pelvis 06/12/2024 Prior PET/CT: 11/10/2023 CLINICAL INDICATION: Female, 54 years old with history of Lung ca, TECHNIQUE: Following the intravenous administration of 11.11 mCi of F-18 FDG, whole body images are performed PET CT fusion skull to thigh. Images are reviewed on the computer in the coronal, axial, a nd sagittal planes. Reconstructed rotating images are created on independent workstation and reviewe d on the computer. A localization and attenuation correction CT is performed in conjunction with e PET scan. DLP: 472 mGycm SCAN: Subsequent Blood glucose: 102 mg/dL Average Mediastinum SUV: 1.9 Average Liver SUV: 2.31 FINDINGS: NECK: No abnormal uptake THORAX: There is intense uptake along the lateral chest wall. This has a peripheral SUV of 5.06. Some is in the upper lateral right chest, example image 89, 61.55. May be present, image 124, SUV 4.58. F indings are suspicious for neoplasm. There is some intercostal uptake on the right lateral chest wall , image 112, SUV 8.49. Some vague uptake may be within the consolidation or pleural effusion in the p osterior left lung, example image 104, SUV 2.76. ABDOMEN: No abnormal uptake. No suspicious uptake within the adrenal glands. PELVIS: No abnormal uptake OSSEOUS STRUCTURES: There is likely some mild inflammatory change at the right glenohumeral joint spa ce LOCALIZATION CT: There appears to be a soft tissue density within the intercostal region on the right . Pleural thickening is present. COMPARISON: Findings have developed over the interval. Mass lesion is developed. Uptake has increased . IMPRESSION: 1. Developing masses within the lateral right lung intercostal region and lateral margin and worsenin g uptake within pleural thickening. [facility], , 07/16/2024 10:45 PM
== END | disposition home or self-care (01) ==
LOC: RADPETMAIN 06:30
PROVIDERS: ATTEND Internal Medicine Sleep Medicine
DX: C34.31 Malignant neoplasm of lower lobe, right bronchus or lung (principal)
CPT/HCPCS: 78815; A9552

== ENCOUNTER 2024-07-20 08:27 | Day surgery (SDC) | payer MEDICARE ==
[2024-07-20 09:11] VITALS: RESP 16; TEMP 98
[2024-07-20 10:12] VITALS: BP 115/80; PULSE 80
--- NOTE | 2024-07-20 10:53 | US ---
EXAMINATION TYPE: US biopsy soft tissue/muscle DATE OF EXAM: 07/20/2024 9:46 AM COMPARISON: CT/PET CLINICAL INDICATION:Female, 54 years old with history of C34.31 MALIGNANT NEOPLASM OF LOWER LOBE, RIG HT SHABANA; , ATTENDING: Dr. Rolando Baird PROCEDURE: Informed consent was obtained. The risks and benefits of the procedure were discussed with the patien t. The site was marked. Timeout procedure was performed Ultrasound imaging demonstrates right chest wall mass The patient was prepped, draped in the usual sterile fashion, and locally anesthetized with 1% lidoca ine. 3 x 18-gauge core needle biopsies were obtained.. Samples were sent to the pathology department for further analysis. Patient tolerated the procedure without incident and was sent home in stable condition. IMPRESSION: Successful ultrasound guided core biopsy [facility], , 07/20/2024 10:51 AM
== END 2024-07-20 10:00 | disposition home or self-care (01) ==
LOC: RADPROMAIN 08:27
PROVIDERS: ATTEND Internal Medicine Hematology & Oncology
DX: C34.31 Malignant neoplasm of lower lobe, right bronchus or lung (principal)
CPT/HCPCS: 20206; 76942; 88305; 88341; 88342

== ENCOUNTER → 2024-09-14 | Outpatient (CLI) | payer MEDICARE ==
--- NOTE | 2024-09-14 08:47 | CT ---
EXAMINATION TYPE: CT chest w con CT DLP: 131.9 mGycm, Automated exposure control for dose reduction was used. DATE OF EXAM: 09/14/2024 8:30 AM COMPARISON: Multiple PET/CT with most recent 07/12/2024, CT chest abdomen pelvis 06/12/2024, CT chest , 09/13/2023, 01/10/2023 CLINICAL INDICATION:Female, 54 years old with history of C34.31 Lung ca; PHH, Hx of lung CA. Pt state s she thinks her CA has came back. TECHNIQUE: Multiple axial images were obtained through the chest following the administration of 100 cc of Isovue 300. . Coronal and sagittal reformats reviewed. FINDINGS: LUNGS/ PLEURA: Redemonstration of extensive postsurgical and posttreatment changes throughout the rig ht lung with scattered areas of prominent pleural-parenchymal scarring and trace right basilar pleura l effusion. Background moderate emphysematous changes. Biapical pleural-parenchymal scarring. Please refer below for right chest wall enlarging mass extending into the pleura. AIRWAY: Patent and unremarkable.. HEART: Size within normal limits. . No pericardial effusion. No significant coronary artery calcifica tions. MEDIASTINUM: No evidence of adenopathy. Slightly shifted to the right due to right lung volume loss. VASCULATURE: No aortic aneurysm. No evidence for pulmonary embolism. MUSCULOSKELETAL: Multiple right-sided rib deformities are collimation prior metastatic disease and po sttreatment change with pathologic fractures. Chronic vertebral body T7 fracture. Mild superior endpl ate stable compression deformities of the T8, T9, T10 vertebral bodies. Interval increase in size of heterogenous centrally hypoenhancing right chest wall mass measuring 8.9 x 4.0 x 5.5 cm. This is cent ered at the right anterior lateral sixth rib with destruction anterolaterally. Previously measured gr ossly 5.1 x 3.0 cm in prior PET/CT. This was FDG avid. Probable centrally necrotic. Lytic lesion invo lving the L2 vertebral body which is new from prior exam. SOFT TISSUES/LYMPH NODES: Unremarkable. LOWER NECK: No significant findings. UPPER ABDOMEN: Gallbladder is surgical absent. Nonobstructing left renal 3 mm calculus. Stable left a drenal gland 1.4 cm nodule which was not FDG avid. Probably benign. IMPRESSION: 1. Worsening right chest wall/pleural recurrence with destruction of the right anterior lateral sixth rib. The mass measures up to 8.9 cm. Additional new lytic lesion involving the L2 vertebral body con cerning for new osseous metastasis. 2. Similar extensive postsurgical and posttreatment changes of the right lung with extensive distorti on and pleural parenchymal scarring. Trace right pleural effusion is similar. [facility], , 09/14/2024 8:45 AM
== END | disposition home or self-care (01) ==
LOC: RADCTMAIN 08:03
PROVIDERS: ATTEND Internal Medicine Hematology & Oncology
DX: Z03.89 Encounter for observation for other suspected diseases and conditions ruled out (principal); C34.31 Malignant neoplasm of lower lobe, right bronchus or lung; J90 Pleural effusion, not elsewhere classified; Z98.890 Other specified postprocedural states
CPT/HCPCS: 71260; Q9967